=== PATIENT | male | born 1960 | race Caucasian/White ===

== ENCOUNTER 2021-07-18 14:44 | Inpatient (IN) | payer OTHER ==
--- NOTE | 2021-07-18 14:37 | EDM.PDOC ---
"ED HPI GENERAL MEDICAL PROBLEM - General Source of Information: Reports: Patient History Limitations: Reports: No Limitations - General Stated Complaint: AMBULANCE / TRAUMA CODE Time Seen by Provider: 07/18/21 14:15 - History of Present Illness INITIAL COMMENTS - FREE TEXT/NARRATIVE: 61 y/o M was shingling a two story roof when he tripped over a hose and fell backwards off the roof. He states he hit his left hip and flank on the side of a dump truck on the way down. C/O L flank and hip pain. Denies LOC. EMS reports significant intrusion into the ortiz of the dump truck where pt fell. He denies whittaker, neck pn, vision prob, jaw pain, cp, db, abd pn, upper and lower extremity pain. He states no med hx, meds, allergies, blood thinners, etoh, drugs. (Emilio La) - Related Data Allergies Allergy/AdvReac Type Severity Reaction Status Date / Time No Known Allergies Allergy Verified 03/30/14 12:34 Home Meds: Home Meds . [No Known Home Meds] 03/30/14 [History] Review of Systems - Review of Systems Review Of Systems: Comprehensive ROS is negative, except as noted in HPI. ED EXAM, GENERAL - Physical Exam Exam: See Below General Appearance: Alert Eye Exam: Bilateral Eye: PERRL Ears: Normal External Exam, Normal Canal, Hearing Grossly Normal, Normal TMs Nose: Normal Inspection, Normal Mucosa, No Blood Throat/Mouth: Normal Inspection, Normal Lips, Normal Teeth, Normal Gums, Normal Oropharynx, Normal Voice, No Airway Compromise Head: Atraumatic, Normocephalic Respiratory/Chest: No Respiratory Distress, Lungs Clear, Normal Breath Sounds, No Accessory Muscle Use, Chest Non-Tender Cardiovascular: Normal Peripheral Pulses, Regular Rate, Rhythm, No Edema, No Gallop, No JVD, No Murmur, No Rub Peripheral Pulses: 2+: Carotid (L), Carotid (R), Radial (L), Radial (R), Posterior Tibial (L), Posterior Tibial (R), Dorsalis Pedis (L), Dorsalis Pedis (R) GI/Abdominal: Soft, Non-Tender (Male) Exam: Deferred Rectal (Males) Exam: Deferred Back Exam: Normal Inspection, Vertebral Tenderness (lumbar spine, Left flank tenderness) Extremities: Normal Inspection, Normal Range of Motion, Non-Tender, Normal Capillary Refill, No Pedal Edema Neurological: Alert, Oriented, CN II-XII Intact, Normal Cognition, Normal Gait, Normal Reflexes, No Motor/Sensory Deficits Skin Exam: Warm, Dry, Intact - Physical Exam Free Text/Narrative:: Provider Trauma Notes Arrival Time: 1414 GCS on Arrival: 15 C-collar present on arrival: yes GCS at 1 hour: 15 Off spine board: na Time primary survey: 1416 Time secondary survey: 142 Primary Survey Airway: open and patient Breathing: regular without additional effort Circulation: no major bleeding noted Deformity: Tenderness to left flank and lumbar spine. No visible ecchymosis, bruising, abrasions. Pelvis stable. No visible shortening or rotation of lower extremities. Expose: Pt normothermic and kept warm. GCS: 15 C-collar removed at 1528 by Ellen La. Secondary Survey 1422 hrs HEENT Head: normocephalic, atraumatic Eyes: PERRLA Ears: no obvious trauma, canals open Nose: no deformity, no bleeding, mucosa moist Mouth: no noted trauma Throat: no abnormalities noted Neck: Supple, normal range of motion no cervical tenderness Chest: lung sounds were clear and equal bilaterally, Heart was RRR, no murmurs, rubs or gallop Abdomen: normoactive bowel sounds, no organomegally, no tenderness on palpation of the abd, tender L flank and lumbar spine. Pelvis: stable Extremities: CMS intact, No visible trauma. (Emilio La) Course - Orders/Labs/Meds Orders: Active Orders 24 hr Category Date Time Status CORONAVIRUS COVID-19 JOSHUA [MOLEC] Stat Lab 07/18/21 16:44 Ordered Lactated Ringers [Ringers, Lactated] 1,000 ml Med 07/18/21 16:00 Active IV ASDIRECTED Medication Orders Lactated Ringer's (Ringers, Lactated) 1,000 mls @ 125 mls/hr IV ASDIRECTED [facility] Labs: Laboratory Tests 07/18/21 07/18/21 07/18/21 Range/Units 14:33 14:33 15:44 WBC 11.2 H (5.0-10.0) 10^3/uL RBC 4.04 L (4.6-6.2) 10^6/uL Hgb 13.6 L (14.0-18.0) g/dL Hct 39.0 L (40.0-54.0) % MCV 96.5 (80-100) fL MCH 33.7 (27.0-34.0) pg MCHC 34.9 (33.0-35.0) g/dL Plt Count 217 (150-450) 10^3/uL Neut % (Auto) 78.1 H (42.2-75.2) % Lymph % (Auto) 11.7 L (20.5-50.1) % [place] % (Auto) 8.7 H (2-8) % Eos % (Auto) 1.3 (1.0-3.0) % Baso % (Auto) 0.2 (0.0-1.0) % Sodium 140 (136-145) mmol/L Potassium 4.0 (3.5-5.1) mmol/L Chloride 103 (98-107) mmol/L Carbon Dioxide 28 (21-32) mmol/L Anion Gap 13.0 (7-13) mEq/L BUN 18 (7-18) mg/dL Creatinine 0.99 (0.70-1.30) mg/dL Est Cr Clr Drug Dosing TNP Estimated GFR (MDRD) > 60 BUN/Creatinine Ratio 18.2 (No establ ref range) Glucose 108 H (70-99) mg/dL Calcium 8.6 (8.5-10.1) mg/dL Total Bilirubin 0.9 (0.2-1.0) mg/dL AST 40 H (15-37) U/L ALT 44 (16-63) U/L Alkaline Phosphatase 58 (46-116) U/L Total Protein 7.0 (6.4-8.2) g/dL Albumin 3.7 (3.4-5.0) g/dL Globulin 3.3 Albumin/Globulin Ratio 1.1 Urine Color Yellow (YELLOW) Urine Appearance Cloudy (CLEAR) Urine pH 5.0 (5.0-9.0) Ur Specific [place] 1.015 (1.005-1.030) Urine Protein Negative (NEGATIVE) Urine Glucose (UA) Negative (NEGATIVE) Urine Ketones Negative (NEGATIVE) Urine Occult Blood Large H (NEGATIVE) Urine Nitrite Negative (NEGATIVE) Urine Bilirubin Negative (NEGATIVE) Urine Urobilinogen 0.2 (0.2-1.0) mg/dL Ur Leukocyte Esterase Negative (NEGATIVE) Urine RBC >100 H (0-5) /HPF Urine WBC 0-5 (0-5/HPF) /HPF Ur Epithelial Cells Rare (NOT SEEN) /HPF Urine Bacteria Rare (0-FEW/HPF) /HPF Meds: Medications Generic Name Dose Route Start Last Admin Trade Name Freq PRN Reason Stop Dose Admin Lactated Ringer's 1,000 mls @ 125 mls/hr 07/18/21 16:00 Ringers, Lactated IV ASDIRECTED [facility] Discontinued Medications Generic Name Dose Route Start Last Admin Trade Name Freq PRN Reason Stop Dose Admin Hydromorphone HCl 0.5 mg 07/18/21 14:32 Hydromorphone 0.5 Mg/0.5 Ml Syringe IVPUSH 07/18/21 14:33 ONETIME ONE Hydromorphone HCl 1 mg 07/18/21 15:54 Hydromorphone 1 Mg/Ml Syringe IVPUSH 07/18/21 15:55 ONETIME ONE Hydromorphone HCl 1 mg 07/18/21 16:32 Hydromorphone 1 Mg/Ml Syringe IVPUSH 07/18/21 16:33 ONETIME ONE Iopamidol 100 ml 07/18/21 14:28 07/18/21 15:46 Iopamidol 612 Mg/Ml 100 Ml Bottle IVPUSH 07/18/21 14:29 100 ml ONETIME ONE Administration Ondansetron HCl 4 mg 07/18/21 16:28 Ondansetron 4 Mg/2 Ml Sdv IVPUSH 07/18/21 16:29 ONETIME ONE - Radiology Interpretation Free Text/Narrative:: [facility] Final Radiology Report Call: [phone] assistance Online chat: [email or web address] Name: HEMALATHA WEBBER Age: 61Years M Date: 07/18/2021 SSN: -- : 1960 Study: CT CERVICAL SPINE WO CONT Requesting Physician: Emilio La Images: [id number] Addl Studies: Provided Clinical History: fall off two [employer] building Contrast: Without Contrast Medium: Contrast Amount: Contrast Method: Page 1 of 2 PROCEDURE INFORMATION: Exam: CT Cervical Spine Without Contrast Exam date and time: 07/18/2021 2:45 PM Age: 61 years old Clinical indication: Injury or trauma; Fall; Work related; Injury date: Today; Additional info: Fall off two [employer] building TECHNIQUE: Imaging protocol: Computed tomography images of the cervical spine without contrast. Radiation optimization: All CT scans at this facility use at least one of these dose optimization techniques: automated exposure control; mA and/or kV adjustment per patient size (includes targeted exams where dose is matched to clinical indication); or iterative reconstruction. COMPARISON: No relevant prior studies available. FINDINGS: Bones/joints: No acute fracture. Normal alignment. Discs/Spinal canal/Neural foramina: Moderate multilevel degenerative changes with central canal stenosis C3-C4 C4-C5 C6-C7 C7-T1 Lungs: Lung apices are normal. Soft tissues: Unremarkable. IMPRESSION: No acute fracture or dislocation. HEMALATHA WEBBER | Final Radiology Report CONFIDENTIALITY STATEMENT This report is intended only for use by the referring physician, and only in accordance with law. If you received this in error, call [phone]. Page 2 of 2 Thank you for allowing us to participate in the care of your patient. Dictated and Authenticated by: Miguel Schmitz MD 07/18/2021 3:14 PM Central Time ([place] & [place]) [facility] [place] [facility] Final Radiology Report Call: [phone] assistance Online chat: [email or web address] Name: HEMALATHA WEBBER Age: 61Years M Date: 07/18/2021 SSN: -- : [id number] Study: CT CHEST ABDOMEN PELVIS W CONT Requesting Physician: Emilio La Images: [id number] Addl Studies: [id number] - CT CHEST W (1) Provided Clinical History: trauma, low back pn pain, fall off two stroy building, left flank and lumbar pain Contrast: With Contrast Medium: isovue 300 Contrast Amount: 100 mL Contrast Method: Intravenous (IV) Page 1 of 3 PROCEDURE INFORMATION: Exam: CT Chest With Contrast; Diagnostic Exam date and time: 07/18/2021 2:54 PM Age: 61 years old Clinical indication: Injury or trauma; Fall; Work related; Injury date: Today; Additional info: Trauma, low back pn. Pain, fall off two stroy building, left flank and lumbar pain TECHNIQUE: Imaging protocol: Diagnostic computed tomography of the chest with contrast. Radiation optimization: All CT scans at this facility use at least one of these dose optimization techniques: automated exposure control; mA and/or kV adjustment per patient size (includes targeted exams where dose is matched to clinical indication); or iterative reconstruction. Contrast material: ISOVUE 300; Contrast volume: 100 ml; Contrast route: INTRAVENOUS (IV); COMPARISON: CT Cervical Spine wo Cont 07/18/2021 2:45 PM FINDINGS: Lungs: Bibasilar atelectasis. No focal consolidation. Pleural spaces: Unremarkable. No pneumothorax. No pleural effusion. Heart: Unremarkable. No cardiomegaly. No pericardial effusion. Aorta: Unremarkable. No aortic aneurysm. Lymph nodes: Unremarkable. No enlarged lymph nodes. Bones/joints: Unremarkable. No acute fracture. Soft tissues: Unremarkable. IMPRESSION: No acute findings. HEMALATHA WEBBER | Final Radiology Report Page 2 of 3 PROCEDURE INFORMATION: Exam: CT Abdomen And Pelvis With Contrast Exam date and time: 07/18/2021 2:54 PM Age: 61 years old Clinical indication: Injury or trauma; Fall; Work related; Injury date: Today; Additional info: Trauma, low back pn. Pain, fall off two stroy building, left flank and lumbar pain TECHNIQUE: Imaging protocol: Computed tomography of the abdomen and pelvis with contrast. Radiation optimization: All CT scans at this facility use at least one of these dose optimization techniques: automated exposure control; mA and/or kV adjustment per patient size (includes targeted exams where dose is matched to clinical indication); or iterative reconstruction. Contrast material: ISOVUE 300; Contrast volume: 100 ml; Contrast route: INTRAVENOUS (IV); COMPARISON: CT Cervical Spine wo Cont 07/18/2021 2:45 PM FINDINGS: Liver: Normal. No mass. Gallbladder and bile ducts: Normal. No calcified stones. No ductal dilation. Pancreas: Normal. No ductal dilation. Spleen: Normal. No splenomegaly. Adrenal glands: Normal. No mass. Kidneys and ureters: Normal. No hydronephrosis. Stomach and bowel: Unremarkable. No obstruction. No mucosal thickening. Appendix: No evidence of appendicitis. Intraperitoneal space: Unremarkable. No free air. No significant fluid collection. Vasculature: Small amount of hematoma tracking throughout aortocaval region presumably due to lumbar spine fractures. There is a subtle linear hyperdense vessel coursing post erior to aorta and possibly communicating with the IVC. Lymph nodes: Unremarkable. No enlarged lymph nodes. Urinary bladder: Unremarkable as visualized. Reproductive: Unremarkable as visualized. Bones/joints: Bony pelvis is intact. Multiple fractures throughout lumbar spine. Alignment in lumbar spine grossly preserved. IMPRESSION: 1. No evidence of solid abdominal organ injury. 2. Multiple lumbar spine fractures with associated small retroperitoneal hematoma. The lumbar spine fractures will be described separately in dedicated CT of lumbar spine report HEMALATHA WEBBER | Final Radiology Report CONFIDENTIALITY STATEMENT This report is intended only for use by the referring physician, and only in accordance with law. If you received this in error, call [phone]. Page 3 of 3 3. There is an indeterminate vessel that may communicate with the IVC. An arteriovenous fistula is not excluded. Consider a CT angiogram of the abdomen pelvis to further alvin lucas Thank you for allowing us to participate in the care of your patient. Dictated and Authenticated by: Miguel Schmitz MD 07/18/2021 3:22 PM Central Time ([place] & [place]) (Chris Cullen) - Re-Assessments/Exams Free Text/Narrative Re-Assessment/Exam: 07/18/21 16:[address] Bowman the neuro human services care specialist at regarding the multiple fractures on the lumbar spines and the concerns from [facility]. Dr. Bowman advised after viewing the cts that the lumbar vertebral bodies appear intact adn without any neurological deficits the pt can go home and follow up with his PCP if his pn does not improve in 2 weeks. 07/18/21 16:46 We attempted to ambulate the pt and he cannot sit up or stand up due to pain. He reports pain with movement is so severe that he becomes nauseous and feels like he is going to pass out. The pt is willing to be admitted to the hospital for pain control I spoke with Dr. Milian who is willing to admit the pt fro pain control. (Emilio La) Departure - Departure Time of Disposition: 16:12 (Dr. Milian) Condition: Fair - Discharge Information *PRESCRIPTION DRUG MONITORING PROGRAM REVIEWED*: Not Applicable *COPY OF PRESCRIPTION DRUG MONITORING REPORT IN PATIENT MARIANELA: Not Applicable - Departure Disposition: Admitted As Inpatient 64 Clinical Impression: Lumbar transverse process fracture Qualifiers: Encounter type: initial encounter Fracture type: closed Qualified Code(s): S32.009A - Unspecified fracture of unspecified lumbar vertebra, initial encounter for closed fracture - Discharge Information Forms: ED Department Discharge - My Orders Last 24 Hours: My Active Orders 07/18/21 16:00 Lactated Ringers [Ringers, Lactated] 1,000 ml IV ASDIRECTED 07/18/21 16:44 CORONAVIRUS COVID-19 JOSHUA [MOLEC] Stat - Assessment/Plan Last 24 Hours: My Active Orders 07/18/21 16:00 Lactated Ringers [Ringers, Lactated] 1,000 ml IV ASDIRECTED 07/18/21 16:44 CORONAVIRUS COVID-19 JOSHUA [MOLEC] Stat"
[~2021-07-18 14:44] MED LIST: HYDROmorphone 0.5 MG/0.5 ML Syringe IVPUSH ONE; Iopamidol 612 MG/ML 100 ML Bottle IVPUSH ONE
[2021-07-18] MEDS ORDERED: HYDROmorphone 0.5 MG/0.5 ML Syringe IV ONE (14:58)
[2021-07-18] MEDS ORDERED: HYDROmorphone 1 MG/ML Syringe IV ONE ×2 (14:59→16:35)
[2021-07-18 15:02] LABS: CHLORIDE,CL 103 mmol/L (98-107); SODIUM,NA 140 mmol/L (136-145)
--- NOTE | 2021-07-18 15:14 | CT ---
PROCEDURE INFORMATION: Exam: CT Cervical Spine Without Contrast Exam date and time: 07/18/2021 2:45 PM Age: 61 years old Clinical indication: Injury or trauma; Fall; Work related; Injury date: Today; Additional info: Fall off two stroy building TECHNIQUE: Imaging protocol: Computed tomography images of the cervical spine without contrast. Radiation optimization: All CT scans at this facility use at least one of these dose optimization techniques: automated exposure control; mA and/or kV adjustment per patient size (includes targeted exams where dose is matched to clinical indication); or iterative reconstruction. COMPARISON: No relevant prior studies available. FINDINGS: Bones/joints: No acute fracture. Normal alignment. Discs/Spinal canal/Neural foramina: Moderate multilevel degenerative changes with central canal stenosis C3-C4 C4-C5 C6-C7 C7-T1 Lungs: Lung apices are normal. Soft tissues: Unremarkable. IMPRESSION: No acute fracture or dislocation.
--- NOTE | 2021-07-18 15:23 | CT ---
PROCEDURE INFORMATION: Exam: CT Chest With Contrast; Diagnostic Exam date and time: 07/18/2021 2:54 PM Age: 61 years old Clinical indication: Injury or trauma; Fall; Work related; Injury date: Today; Additional info: Trauma, low back pn. Pain, fall off two stroy building, left flank and lumbar pain TECHNIQUE: Imaging protocol: Diagnostic computed tomography of the chest with contrast. Radiation optimization: All CT scans at this facility use at least one of these dose optimization techniques: automated exposure control; mA and/or kV adjustment per patient size (includes targeted exams where dose is matched to clinical indication); or iterative reconstruction. Contrast material: ISOVUE 300; Contrast volume: 100 ml; Contrast route: INTRAVENOUS (IV); COMPARISON: CT Cervical Spine wo Cont 07/18/2021 2:45 PM FINDINGS: Lungs: Bibasilar atelectasis. No focal consolidation. Pleural spaces: Unremarkable. No pneumothorax. No pleural effusion. Heart: Unremarkable. No cardiomegaly. No pericardial effusion. Aorta: Unremarkable. No aortic aneurysm. Lymph nodes: Unremarkable. No enlarged lymph nodes. Bones/joints: Unremarkable. No acute fracture. Soft tissues: Unremarkable. IMPRESSION: No acute findings. PROCEDURE INFORMATION: Exam: CT Abdomen And Pelvis With Contrast Exam date and time: 07/18/2021 2:54 PM Age: 61 years old Clinical indication: Injury or trauma; Fall; Work related; Injury date: Today; Additional info: Trauma, low back pn. Pain, fall off two stroy building, left flank and lumbar pain TECHNIQUE: Imaging protocol: Computed tomography of the abdomen and pelvis with contrast. Radiation optimization: All CT scans at this facility use at least one of these dose optimization techniques: automated exposure control; mA and/or kV adjustment per patient size (includes targeted exams where dose is matched to clinical indication); or iterative reconstruction. Contrast material: ISOVUE 300; Contrast volume: 100 ml; Contrast route: INTRAVENOUS (IV); COMPARISON: CT Cervical Spine wo Cont 07/18/2021 2:45 PM FINDINGS: Liver: Normal. No mass. Gallbladder and bile ducts: Normal. No calcified stones. No ductal dilation. Pancreas: Normal. No ductal dilation. Spleen: Normal. No splenomegaly. Adrenal glands: Normal. No mass. Kidneys and ureters: Normal. No hydronephrosis. Stomach and bowel: Unremarkable. No obstruction. No mucosal thickening. Appendix: No evidence of appendicitis. Intraperitoneal space: Unremarkable. No free air. No significant fluid collection. Vasculature: Small amount of hematoma tracking throughout aortocaval region presumably due to lumbar spine fractures. There is a subtle linear hyperdense vessel coursing posterior to aorta and possibly communicating with the IVC. Lymph nodes: Unremarkable. No enlarged lymph nodes. Urinary bladder: Unremarkable as visualized. Reproductive: Unremarkable as visualized. Bones/joints: Bony pelvis is intact. Multiple fractures throughout lumbar spine. Alignment in lumbar spine grossly preserved. IMPRESSION: 1. No evidence of solid abdominal organ injury. 2. Multiple lumbar spine fractures with associated small retroperitoneal hematoma. The lumbar spine fractures will be described separately in dedicated CT of lumbar spine report 3. There is an indeterminate vessel that may communicate with the IVC. An arteriovenous fistula is not excluded. Consider a CT angiogram of the abdomen pelvis to further characterize
--- NOTE | 2021-07-18 15:41 | CT ---
PROCEDURE INFORMATION: Exam: CT Lumbar Spine Without Contrast Exam date and time: 07/18/2021 2:45 PM Age: 61 years old Clinical indication: Injury or trauma; Fall; Work related; Injury date: Today; Additional info: Fall, lumbar pain TECHNIQUE: Imaging protocol: Computed tomography images of the lumbar spine without contrast. Radiation optimization: All CT scans at this facility use at least one of these dose optimization techniques: automated exposure control; mA and/or kV adjustment per patient size (includes targeted exams where dose is matched to clinical indication); or iterative reconstruction. COMPARISON: No relevant prior studies available. FINDINGS: There are displaced left L1, L2, L3, L4 transverse process fractures. Additionally, there is a fracture through the right superior endplate of L3 which propagates posteriorly into the right L3 superior facet. Good gross alignment in facet joints throughout lumbar spine. There is also question of a nondisplaced fracture through the upper to mid portion of L1 vertebral body. Moderate multilevel degenerative changes result in mild central canal stenosis L2-L3, L3-L4, L4-L5. Note the L2 fracture is a multi column injury. Neuro surgical evaluation is advised for further assessment. IMPRESSION: There are displaced left L1, L2, L3, L4 transverse process fractures. Additionally, there is a fracture through the right superior endplate of L3 which propagates posteriorly into the right L3 superior facet. Good gross alignment in facet joints throughout lumbar spine. There is also question of a nondisplaced fracture through the upper to mid portion of L1 vertebral body.
[2021-07-18] MEDS ORDERED: HYDROmorphone 1 MG/ML Syringe IVPUSH ONE ×2 (15:54→16:32)
[2021-07-18] MEDS ORDERED: Lactated Ringers 1,000 ML IV ONE (16:00)
[2021-07-18] MEDS ORDERED: Ondansetron 4 MG/2 ML SDV IVPUSH ONE (16:28)
[2021-07-18] MEDS ORDERED: Ondansetron 4 MG/2 ML SDV IV ONE (16:34)
[2021-07-18] MEDS ORDERED: Magnesium Sulfate/Water 2 GM in Premix Bag 1 BAG IV ONE (16:57)
[2021-07-18] MEDS ORDERED: Sodium Chloride 0.9% with KCl 1,000 ML IV SCH (17:00)
[2021-07-18] MEDS ORDERED: Naloxone 2 MG/2 ML Syringe IVPUSH PRN (17:19)
[2021-07-18] MEDS ORDERED: Morphine PF 30 MG/30 ML PCA Vial IV PRN (17:19)
[2021-07-18] MEDS: Ketorolac 30 MG/ML SDV IVPUSH SCH ×2 (19:12→23:35)
[2021-07-18] MEDS: Lactated Ringers 1,000 ML IV SCH (19:18)
[2021-07-18] MEDS: Enoxaparin 40 MG/0.4 ML Syringe SUBCUT SCH (19:19)
[2021-07-18] MEDS: Lidocaine 5% 700 MG Patch TOP SCH (19:21)
[2021-07-18] MEDS: Morphine PF 30 MG/30 ML PCA Vial IV PRN (20:25)
[2021-07-19] MEDS: Lactated Ringers 1,000 ML IV SCH ×3 (01:53→18:01)
[2021-07-19] MEDS: Ketorolac 30 MG/ML SDV IVPUSH SCH ×2 (05:19→11:56)
[2021-07-19] MEDS: Lidocaine 5% 700 MG Patch TOP SCH ×2 (05:27→17:09)
[2021-07-19] MEDS: Ondansetron 4 MG/2 ML SDV IVPUSH PRN ×2 (08:54→17:08)
[2021-07-19] MEDS: Enoxaparin 40 MG/0.4 ML Syringe SUBCUT SCH (08:56)
[2021-07-19] MEDS: Morphine PF 30 MG/30 ML PCA Vial IV PRN ×2 (09:10→23:19)
--- NOTE | 2021-07-19 12:11 | PCM.HP ---
H&P History of Present Illness - General Date of Service: 07/18/21 Admit Problem/Dx: Admission Diagnosis/Problem Admission Diagnosis/Problem Spinous process fracture, Trauma - History of Present Illness Initial Comments - Free Text/Narative: Zeeshan is a 61-year-old man who was working on a 2 story roof, when he tripped on some debris and fell off the roof. He struck the ortiz of a taller truck on the way down, striking his low back and right hip. He then landed on the ground, but fortunately did not strike or injure his head. He was sent immediately to the ED where he underwent a trauma evaluation. Head and C-spine were clear on CT scan, but he was noted to have transverse process fractures of L1-L4. He is also noted to have a vertebral fracture of L2. As I approach Zeeshan in the ED, he is having severe pain in his lower back, he states "it only hurts when I move". back Pain Score (Numeric/FACES): 5 - Related Data Allergies/Adverse Reactions: Allergies Allergy/AdvReac Type Severity Reaction Status Date / Time No Known Allergies Allergy Verified 03/30/14 12:34 Home Medications: Home Meds . [No Known Home Meds] 03/30/14 [History] Past Medical History HEENT History: Reports: None Cardiovascular History: Reports: None Respiratory History: Reports: None Gastrointestinal History: Reports: Other (See Below) Other Gastrointestinal History: ulcers Genitourinary History: Reports: None Musculoskeletal History: Reports: None Neurological History: Reports: None Psychiatric History: Reports: None Endocrine/Metabolic History: Reports: None Hematologic History: Reports: None Immunologic History: Reports: None Oncologic (Cancer) History: Reports: None Dermatologic History: Reports: None - Infectious Disease History Infectious Disease History: Reports: None - Past Surgical History HEENT Surgical History: Reports: None Cardiovascular Surgical History: Reports: None Respiratory Surgical History: Reports: None Male Surgical History: Reports: None Musculoskeletal Surgical History: Reports: None Social & Family History - Family History Family Medical History: No Pertinent Family History - Tobacco Use Tobacco Use Status *Q: Never Tobacco User Second Hand Smoke Exposure: No - Caffeine Use Caffeine Use: Reports: None - Recreational Drug Use Recreational Drug Use: Yes Drug Use in Last 12 Months: Yes Recreational Drug Type: Reports: Marijuana/Hashish Recreational Drug Use Frequency: Weekly H&P Review of Systems - Review of Systems: Review Of Systems: See Below General: Denies: Fever, Chills, Weight Loss HEENT: Denies: Hearing Changes, Visual Changes Cardiovascular: Denies: Chest Pain, Palpitations Gastrointestinal: Reports: Other (See HPI) Genitourinary: Denies: Dysuria, Hematuria Musculoskeletal: Reports: Other (See HPI) Skin: Denies: Lesions, Lumps Review of Systems Comment:: Rest of his review of systems is complete and negative Exam - Exam Exam: See Below - Vital Signs Vital Signs: Last Vital Signs Temp 97.1 F 07/19/21 11:42 Pulse 51 L 07/19/21 11:42 Resp 18 07/19/21 11:42 BP 99/54 L 07/19/21 11:42 Pulse Ox 100 07/19/21 11:42 Weight: 205 lb 11.2 oz - Exam Physical Exam Comments:: General: Zeeshan is a 61-year-old man who is in severe pain, but in no acute distress Oropharynx is clear, mucous membranes are moist Neck: Supple, no lymphadenopathy Heart: Regular rate and rhythm, no murmurs Lungs: Clear to auscultation throughout Abdomen: He has some ecchymosis over his lower abdomen, and a large contusion over the right side and down over his hip. He is very painful with any palpation of his lower back Neurological: Cranial nerves II through XII are grossly intact - Patient Data Lab Results Last 24 hrs: Laboratory Results - last 24 hr 07/18/21 07/18/21 07/18/21 Range/Units 14:33 14:33 15:44 WBC 11.2 H (5.0-10.0) 10^3/uL RBC 4.04 L (4.6-6.2) 10^6/uL Hgb 13.6 L (14.0-18.0) g/dL Hct 39.0 L (40.0-54.0) % MCV 96.5 (80-100) fL MCH 33.7 (27.0-34.0) pg MCHC 34.9 (33.0-35.0) g/dL Plt Count 217 (150-450) 10^3/uL Neut % (Auto) 78.1 H (42.2-75.2) % Lymph % (Auto) 11.7 L (20.5-50.1) % [place] % (Auto) 8.7 H (2-8) % Eos % (Auto) 1.3 (1.0-3.0) % Baso % (Auto) 0.2 (0.0-1.0) % Sodium 140 (136-145) mmol/L Potassium 4.0 (3.5-5.1) mmol/L Chloride 103 (98-107) mmol/L Carbon Dioxide 28 (21-32) mmol/L Anion Gap 13.0 (7-13) mEq/L BUN 18 (7-18) mg/dL Creatinine 0.99 (0.70-1.30) mg/dL Est Cr Clr Drug Dosing TNP Estimated GFR (MDRD) > 60 BUN/Creatinine Ratio 18.2 (No establ ref range) Glucose 108 H (70-99) mg/dL Calcium 8.6 (8.5-10.1) mg/dL Total Bilirubin 0.9 (0.2-1.0) mg/dL AST 40 H (15-37) U/L ALT 44 (16-63) U/L Alkaline Phosphatase 58 (46-116) U/L Total Protein 7.0 (6.4-8.2) g/dL Albumin 3.7 (3.4-5.0) g/dL Globulin 3.3 Albumin/Globulin Ratio 1.1 Urine Color Yellow (YELLOW) Urine Appearance Cloudy (CLEAR) Urine pH 5.0 (5.0-9.0) Ur Specific [place] 1.015 (1.005-1.030) Urine Protein Negative (NEGATIVE) Urine Glucose (UA) Negative (NEGATIVE) Urine Ketones Negative (NEGATIVE) Urine Occult Blood Large H (NEGATIVE) Urine Nitrite Negative (NEGATIVE) Urine Bilirubin Negative (NEGATIVE) Urine Urobilinogen 0.2 (0.2-1.0) mg/dL Ur Leukocyte Esterase Negative (NEGATIVE) Urine RBC >100 H (0-5) /HPF Urine WBC 0-5 (0-5/HPF) /HPF Ur Epithelial Cells Rare (NOT SEEN) /HPF Urine Bacteria Rare (0-FEW/HPF) /HPF SARS CoV-2 RNA Rapid JOSHUA (NEGATIVE) 07/18/21 Range/Units 16:45 WBC (5.0-10.0) 10^3/uL RBC (4.6-6.2) 10^6/uL Hgb (14.0-18.0) g/dL Hct (40.0-54.0) % MCV (80-100) fL MCH (27.0-34.0) pg MCHC (33.0-35.0) g/dL Plt Count (150-450) 10^3/uL Neut % (Auto) (42.2-75.2) % Lymph % (Auto) (20.5-50.1) % [place] % (Auto) (2-8) % Eos % (Auto) (1.0-3.0) % Baso % (Auto) (0.0-1.0) % Sodium (136-145) mmol/L Potassium (3.5-5.1) mmol/L Chloride (98-107) mmol/L Carbon Dioxide (21-32) mmol/L Anion Gap (7-13) mEq/L BUN (7-18) mg/dL Creatinine (0.70-1.30) mg/dL Est Cr Clr Drug Dosing Estimated GFR (MDRD) BUN/Creatinine Ratio (No establ ref range) Glucose (70-99) mg/dL Calcium (8.5-10.1) mg/dL Total Bilirubin (0.2-1.0) mg/dL AST (15-37) U/L ALT (16-63) U/L Alkaline Phosphatase (46-116) U/L Total Protein (6.4-8.2) g/dL Albumin (3.4-5.0) g/dL Globulin Albumin/Globulin Ratio Urine Color (YELLOW) Urine Appearance (CLEAR) Urine pH (5.0-9.0) Ur Specific [place] (1.005-1.030) Urine Protein (NEGATIVE) Urine Glucose (UA) (NEGATIVE) Urine Ketones (NEGATIVE) Urine Occult Blood (NEGATIVE) Urine Nitrite (NEGATIVE) Urine Bilirubin (NEGATIVE) Urine Urobilinogen (0.2-1.0) mg/dL Ur Leukocyte Esterase (NEGATIVE) Urine RBC (0-5) /HPF Urine WBC (0-5/HPF) /HPF Ur Epithelial Cells (NOT SEEN) /HPF Urine Bacteria (0-FEW/HPF) /HPF SARS CoV-2 RNA Rapid JOSHUA Negative (NEGATIVE) Result Diagrams: 07/18/21 14:33 07/18/21 14:33 *Q Meaningful Use (ADM) - VTE Risk Assess *Q Each Risk Factor Represents 1 Point: None Total Score 1 Point Risk Factors: 0 Each Risk Factor Represents 2 Points: Age 60 - 74 Years Total Score 2 Point Risk Factors: 2 Each Risk Factor Represents 3 Points: None Total Score 3 Point Risk Factors: 0 Each Risk Factor Represents 5 Points: Multiple Trauma, Less than 1 Month Total Score 5 Point Risk Factors: 5 Venous Thromboembolism Risk Factor Score *Q: 7 - Problem List (1) Contusion, back SNOMED Code(s): 13630882 ICD Code: S20.229A - CONTUSION OF UNSPECIFIED BACK WALL OF THORAX, INIT ENCNTR Status: Acute Current Visit: Yes Qualifiers: Encounter type: initial encounter (2) Intractable back pain SNOMED Code(s): 544902662 ICD Code: M54.9 - DORSALGIA, UNSPECIFIED Status: Acute Current Visit: Yes (3) Lumbar transverse process fracture SNOMED Code(s): 143923537 ICD Code: S32.009A - UNSP FRACTURE OF UNSP LUMBAR VERTEBRA, INIT FOR CLOS FX Status: Acute Current Visit: Yes Qualifiers: Encounter type: initial encounter Fracture type: closed Qualified Code(s): S32.009A - Unspecified fracture of unspecified lumbar vertebra, initial encounter for closed fracture (4) Trauma SNOMED Code(s): 932024680 ICD Code: T14.90XA - INJURY, UNSPECIFIED, INITIAL ENCOUNTER Status: Acute Current Visit: Yes Problem List Initiated/Reviewed/Updated: Yes Orders Last 24hrs: Active Orders 24 hr Category Date Time Status Admission Diagnosis [ADT] Stat ADT 07/18/21 16:50 Ordered Admission Status [Patient Status] [ADT] Routine ADT 07/18/21 16:50 Active Bedrest Bathroom Privileges [RC] ASDIRECTED Care 07/18/21 17:17 Active Communication Order [RC] PER UNIT ROUTINE Care 07/18/21 17:20 Active Oxygen Therapy [RC] PRN Care 07/18/21 17:17 Active DISPATCHER RADIO Record [RC] Q4H Care 07/18/21 17:20 Active DISPATCHER RADIO Record [RC] Q4H Care 07/18/21 17:20 Active VTE/DVT Education [RC] PER UNIT ROUTINE Care 07/18/21 17:17 Active Vital Signs [RC] 07,11,15,19,23,03 Care 07/18/21 17:17 Active Vital Signs [RC] PER UNIT ROUTINE Care 07/18/21 17:20 Active Full Liquid Diet [DIET] Diet 07/19/21 Breakfast Active Enoxaparin [Lovenox] Med 07/18/21 17:30 Active 40 mg SUBCUT DAILY Lactated Ringers [Ringers, Lactated] 1,000 ml Med 07/18/21 16:00 Active IV ASDIRECTED Lidocaine 5% [Lidoderm 5%] Med 07/18/21 17:30 Active See Dose Instructions TOP Q12H Morphine PF [Morphine DISPATCHER RADIO 30 MG in 30 ML] Med 07/18/21 20:16 Active See Protocol IV ASDIRECTED PRN Naloxone [Narcan] Med 07/18/21 17:19 Active 0.04 mg IVPUSH Q3M PRN Ondansetron [Zofran] Med 07/18/21 17:19 Active 4 mg IVPUSH Q6H PRN Pulse Oximetry Continuous Monitoring [OM.PC] Routine Oth 07/18/21 17:20 Ordered Resuscitation Status Routine Resus Stat 07/18/21 17:17 Ordered Medication Orders Enoxaparin Sodium (Enoxaparin 40 Mg/0.4 Ml Syringe) 40 mg SUBCUT DAILY [facility] Last Admin: 07/19/21 08:56 Dose: 40 mg Documented by: Admin: 07/18/21 19:19 Dose: 40 mg Documented by: HANNAH Lactated Ringer's (Ringers, Lactated) 1,000 mls @ 125 mls/hr IV ASDIRECTED [facility] Last Admin: 07/19/21 09:48 Dose: 125 mls/hr Documented by: Infusion: 07/19/21 09:45 Dose: 125 mls/hr Documented by: Admin: 07/19/21 01:53 Dose: 125 mls/hr Documented by: Infusion: 07/19/21 01:53 Dose: 125 mls/hr Documented by: Admin: 07/18/21 19:18 Dose: 125 mls/hr Documented by: HANNAH Lidocaine (Lidocaine 5% 700 Mg Patch) 0 mg TOP Q12H [facility] Last Admin: 07/19/21 05:27 Dose: Not Given Documented by: Admin: 07/18/21 19:21 Dose: 700 mg Documented by: HANNAH Morphine Sulfate (Morphine Pf 30 Mg/30 Ml Park Manager Vial) 0 mg IV ASDIRECTED PRN; Protocol PRN Reason: Pain Last Admin: 07/19/21 09:10 Dose: 30 mg Documented by: JEREMY Cosigned by: GENOVEVA Admin: 07/18/21 20:25 Dose: 30 mg Documented by: CASSANDRA Cosigned by: JEREMY Naloxone HCl (Naloxone 2 Mg/2 Ml Syringe) 0.04 mg IVPUSH Q3M PRN PRN Reason: Respiratory Depression Ondansetron HCl (Ondansetron 4 Mg/2 Ml Sdv) 4 mg IVPUSH Q6H PRN PRN Reason: Nausea/Vomiting Last Admin: 07/19/21 08:54 Dose: 4 mg Documented by: ANETA Assessment/Plan Comment:: Assessment/Plan: 1. 61-year-old man with multiple level transverse process fracture of the lumbar spine, as well as severe contusions of the low back and right hip -He is admitted to inpatient, both for treatment of his intractable back pain as well as for an overnight trauma observation. We are a level 4 trauma center, but because of the COVID-19 pandemic crisis, there are no beds available in the surrounding hospitals for a trauma observation. We will therefore do his trauma observation here even though we do not have a surgeon available -Morphine DISPATCHER RADIO to help control his pain in a safe manner -Toradol, 30 mg IV every 6 hours scheduled -Lidoderm patches to his lumbar spine to help control pain -I discussed with the patient that the first 24 hours of inflammation and pain are to be the worst for him. After 24 hours, we will work on starting to get him mobilized and get a feel for his pain level with ambulation. He will be needing a TLSO brace upon discharge, we will work on getting that for him here w hile he is inpatient to get him accustomed to it if possible. 2. VTE prophylaxis: Due to his recent trauma and the fact that he will be fairly immobile for the next 24 to 48 hours, will start him on Lovenox, 40 mg subcu daily for prophylaxis
--- NOTE | 2021-07-19 16:09 | PCM.PN ---
- General Info Date of Service: 07/19/21 Admission Dx/Problem (Free Text): Admission Diagnosis/Problem Admission Diagnosis/Problem Spinous process fracture, Trauma Subjective Update: Zeeshan did well through the night with the morphine SALES SYSTEMS ENGINEER in place. It was able to keep him comfortable enough to sleep fairly well. He is having more pain this morning with activity, and has had some mild abdominal pain and also just some bloating and abdominal discomfort as well. We pulled his diet back to liquid diet, as it is apparent that he is having some abdominal ileus from his trauma. CT the abdomen pelvis yesterday did not show any signs of injury to the abdominal or pelvic organs. - Patient Data Vitals - Most Recent: Last Vital Signs Temp 97.1 F 07/19/21 11:42 Pulse 51 L 07/19/21 11:42 Resp 18 07/19/21 11:42 BP 99/54 L 07/19/21 11:42 Pulse Ox 100 07/19/21 11:42 Weight - Most Recent: 205 lb 11.2 oz I&O - Last 24 Hours: Intake & Output 07/19/21 07/19/21 07/19/21 06:59 14:59 22:59 Intake Total 1536 200 Output Total 1200 Balance 336 200 Lab Results Last 24 Hours: Laboratory Results - last 24 hr 07/18/21 07/18/21 Range/Units 15:44 16:45 Urine Color Yellow (YELLOW) Urine Appearance Cloudy (CLEAR) Urine pH 5.0 (5.0-9.0) Ur Specific [place] 1.015 (1.005-1.030) Urine Protein Negative (NEGATIVE) Urine Glucose (UA) Negative (NEGATIVE) Urine Ketones Negative (NEGATIVE) Urine Occult Blood Large H (NEGATIVE) Urine Nitrite Negative (NEGATIVE) Urine Bilirubin Negative (NEGATIVE) Urine Urobilinogen 0.2 (0.2-1.0) mg/dL Ur Leukocyte Esterase Negative (NEGATIVE) Urine RBC >100 H (0-5) /HPF Urine WBC 0-5 (0-5/HPF) /HPF Ur Epithelial Cells Rare (NOT SEEN) /HPF Urine Bacteria Rare (0-FEW/HPF) /HPF SARS CoV-2 RNA Rapid JOSHUA Negative (NEGATIVE) Med Orders - Current: Current Medications Enoxaparin Sodium (Enoxaparin 40 Mg/0.4 Ml Syringe) 40 mg SUBCUT DAILY [facility] Last Admin: 07/19/21 08:56 Dose: 40 mg Documented by: Lactated Ringer's (Ringers, Lactated) 1,000 mls @ 125 mls/hr IV ASDIRECTED [facility] Last Admin: 07/19/21 09:48 Dose: 125 mls/hr Documented by: Lidocaine (Lidocaine 5% 700 Mg Patch) 0 mg TOP Q12H [facility] Last Admin: 07/19/21 05:27 Dose: Not Given Documented by: Morphine Sulfate (Morphine Pf 30 Mg/30 Ml Workforce Services Representative Vial) 0 mg IV ASDIRECTED PRN; Protocol PRN Reason: Pain Last Admin: 07/19/21 09:10 Dose: 30 mg Documented by: Naloxone HCl (Naloxone 2 Mg/2 Ml Syringe) 0.04 mg IVPUSH Q3M PRN PRN Reason: Respiratory Depression Ondansetron HCl (Ondansetron 4 Mg/2 Ml Sdv) 4 mg IVPUSH Q6H PRN PRN Reason: Nausea/Vomiting Last Admin: 07/19/21 08:54 Dose: 4 mg Documented by: Discontinued Medications Hydromorphone HCl (Hydromorphone 0.5 Mg/0.5 Ml Syringe) 0.5 mg IVPUSH ONETIME ONE Stop: 07/18/21 14:33 Last Admin: 07/19/21 00:04 Dose: Not Given Documented by: Hydromorphone HCl (Hydromorphone 1 Mg/Ml Syringe) 1 mg IVPUSH ONETIME ONE Stop: 07/18/21 15:55 Last Admin: 07/19/21 00:04 Dose: Not Given Documented by: Hydromorphone HCl (Hydromorphone 1 Mg/Ml Syringe) 1 mg IVPUSH ONETIME ONE Stop: 07/18/21 16:33 Last Admin: 07/19/21 00:04 Dose: Not Given Documented by: Magnesium Sulfate 2 gm/ Premix 50 mls @ 25 mls/hr IV ONETIME ONE Stop: 07/18/21 18:56 Last Admin: 07/19/21 00:07 Dose: Not Given Documented by: Potassium Chloride/Sodium Chloride (Normal Saline With 40 Meq Kcl) 1,000 mls @ 999 mls/hr IV ASDIRECTED [facility] Iopamidol (Iopamidol 612 Mg/Ml 100 Ml Bottle) 100 ml IVPUSH ONETIME ONE Stop: 07/18/21 14:29 Last Admin: 07/18/21 15:46 Dose: 100 ml Documented by: Ketorolac Tromethamine (Ketorolac 30 Mg/Ml Sdv) 30 mg IVPUSH Q6H [facility] Stop: 07/19/21 11:31 Last Admin: 07/19/21 11:56 Dose: 30 mg Documented by: Morphine Sulfate (Morphine Pf 30 Mg/30 Ml Workforce Services Representative Vial) 0 mg IV ASDIRECTED PRN; Pr otocol PRN Reason: Pain Last Admin: 07/18/21 19:57 Dose: 30 mg Documented by: Ondansetron HCl (Ondansetron 4 Mg/2 Ml Sdv) 4 mg IVPUSH ONETIME ONE Stop: 07/18/21 16:29 Last Admin: 07/19/21 00:06 Dose: Not Given Documented by: - Exam Physical Findings Comments:: General: Zeeshan is a 61-year-old man in no acute distress Oropharynx is clear, mucous membranes are moist Abdomen is soft, diffusely tender, very hypoactive bowel sounds are heard in all 4 quadrants He is able to move both of his lower extremities without difficulty - Patient Data Lab Results Last 24 hrs: Laboratory Results - last 24 hr 07/18/21 07/18/21 Range/Units 15:44 16:45 Urine Color Yellow (YELLOW) Urine Appearance Cloudy (CLEAR) Urine pH 5.0 (5.0-9.0) Ur Specific [place] 1.015 (1.005-1.030) Urine Protein Negative (NEGATIVE) Urine Glucose (UA) Negative (NEGATIVE) Urine Ketones Negative (NEGATIVE) Urine Occult Blood Large H (NEGATIVE) Urine Nitrite Negative (NEGATIVE) Urine Bilirubin Negative (NEGATIVE) Urine Urobilinogen 0.2 (0.2-1.0) mg/dL Ur Leukocyte Esterase Negative (NEGATIVE) Urine RBC >100 H (0-5) /HPF Urine WBC 0-5 (0-5/HPF) /HPF Ur Epithelial Cells Rare (NOT SEEN) /HPF Urine Bacteria Rare (0-FEW/HPF) /HPF SARS CoV-2 RNA Rapid JOSHUA Negative (NEGATIVE) Result Diagrams: 07/18/21 14:33 07/18/21 14:33 Sepsis Event Note - Evaluation Sepsis Screening Result: No Definite Risk - Focused Exam Vital Signs: Vital Signs Temp Pulse Resp BP Pulse Ox 07/19/21 11:42 97.1 F 51 L 18 99/54 L 100 07/19/21 11:00 97.1 F 51 L 18 99/54 L 100 07/19/21 07:00 97.6 F 50 L 20 99/54 L 95 - Problem List & Annotations (1) Contusion, back SNOMED Code(s): 03113275 Code(s): S20.229A - CONTUSION OF UNSPECIFIED BACK WALL OF THORAX, INIT ENCNTR Status: Acute Current Visit: Yes Qualifiers: Encounter type: initial encounter (2) Intractable back pain SNOMED Code(s): 998103569 Code(s): M54.9 - DORSALGIA, UNSPECIFIED Status: Acute Current Visit: Yes (3) Lumbar transverse process fracture SNOMED Code(s): 637264485 Code(s): S32.009A - UNSP FRACTURE OF UNSP LUMBAR VERTEBRA, INIT FOR CLOS FX Status: Acute Current Visit: Yes Qualifiers: Encounter type: initial encounter Fracture type: closed Qualified Code(s): S32.009A - Unspecified fracture of unspecified lumbar vertebra, initial encounter for closed fracture (4) Trauma SNOMED Code(s): 881438406 Code(s): T14.90XA - INJURY, UNSPECIFIED, INITIAL ENCOUNTER Status: Acute Current Visit: Yes - Problem List Review Problem List Initiated/Reviewed/Updated: Yes - My Orders Last 24 Hours: My Active Orders 07/18/21 17:17 Bedrest Bathroom Privileges [RC] ASDIRECTED Oxygen Therapy [RC] PRN VTE/DVT Education [RC] PER UNIT ROUTINE Vital Signs [RC] 07,11,15,19,23,03 Resuscitation Status Routine 07/18/21 17:19 Naloxone [Narcan] 0.04 mg IVPUSH Q3M PRN Ondansetron [Zofran] 4 mg IVPUSH Q6H PRN 07/18/21 17:20 Communication Order [RC] PER UNIT ROUTINE SALES SYSTEMS ENGINEER Record [RC] Q4H SALES SYSTEMS ENGINEER Record [RC] Q4H Vital Signs [RC] PER UNIT ROUTINE Pulse Oximetry Continuous Monitoring [OM.PC] Routine 07/18/21 17:30 Enoxaparin [Lovenox] 40 mg SUBCUT DAILY Lidocaine 5% [Lidoderm 5%] See Dose Instructions TOP Q12H 07/18/21 20:16 Morphine PF [Morphine SALES SYSTEMS ENGINEER 30 MG in 30 ML] See Protocol IV ASDIRECTED PRN 07/19/21 Breakfast Full Liquid Diet [DIET] - Plan Plan:: Assessment/Plan: 1. 61-year-old man with multiple level transverse process fracture of the lumbar spine, as well as severe contusions of the low back and right hip 2. Adynamic ileus secondary to above trauma -We will get a upright abdomen x-ray to assess his ileus. If the symptoms continue to escalate, we may need to repeat his abdominal/pelvis CT -Morphine SALES SYSTEMS ENGINEER to help control his pain in a safe manner -Toradol, 30 mg IV every 6 hours scheduled -Lidoderm patches to his lumbar spine to help control pain -I discussed with the patient that the first 24 hours of inflammation and pain are to be the worst for him. After 24 hours, we will work on starting to get him mobilized and get a feel for his pain level with ambulation. He will be needing a TLSO brace upon discharge, we will work on getting that for him here while he is inpatient to get him accustomed to it if possible. 2. VTE prophylaxis: Due to his recent trauma and the fact that he will be fairly immobile for the next 24 to 48 hours, will start him on Lovenox, 40 mg subcu daily for prophylaxis
[2021-07-19] MEDS: Docusate Sodium 100 MG Cap PO SCH (23:25)
[2021-07-20] MEDS: Lactated Ringers 1,000 ML IV SCH ×3 (02:04→18:18)
[2021-07-20] MEDS: Lidocaine 5% 700 MG Patch TOP SCH ×2 (05:23→18:29)
[2021-07-20] MEDS: Docusate Sodium 100 MG Cap PO SCH ×3 (07:41→22:22)
[2021-07-20] MEDS: Ondansetron 4 MG/2 ML SDV IVPUSH PRN (07:41)
--- NOTE | 2021-07-20 08:13 | PCM.PN ---
- General Info Date of Service: 07/20/21 Admission Dx/Problem (Free Text): Admission Diagnosis/Problem Admission Diagnosis/Problem Spinous process fracture, Trauma Subjective Update: Zeeshan is a 61-year-old gentleman admitted here with severe intractable pain secondary to multiple transverse spinous process fractures in his lumbar spine, as well as a vertebral fracture involving L2. He has been having a lot of radicular symptoms from this into his low back, groin, and lower extremities. He has responded well to morphine FAST FOOD CREW LEAD, and has received scheduled doses of Toradol. - Patient Data Vitals - Most Recent: Last Vital Signs Temp 98.5 F 07/20/21 07:52 Pulse 67 07/20/21 07:52 Resp 20 07/20/21 07:52 BP 122/82 07/20/21 07:52 Pulse Ox 95 07/20/21 07:52 Weight - Most Recent: 205 lb 11.2 oz I&O - Last 24 Hours: Intake & Output 07/19/21 07/20/21 07/20/21 22:59 06:59 14:59 Intake Total 1000 Output Total 300 Balance 700 Med Orders - Current: Current Medications Docusate Sodium (Docusate Sodium 100 Mg Cap) 100 mg PO BID [facility] Last Admin: 07/20/21 07:41 Dose: 100 mg Documented by: Enoxaparin Sodium (Enoxaparin 40 Mg/0.4 Ml Syringe) 40 mg SUBCUT DAILY [facility] Last Admin: 07/19/21 08:56 Dose: 40 mg Documented by: Lactated Ringer's (Ringers, Lactated) 1,000 mls @ 125 mls/hr IV ASDIRECTED [facility] Last Admin: 07/20/21 02:04 Dose: 125 mls/hr Documented by: Lidocaine (Lidocaine 5% 700 Mg Patch) 0 mg TOP Q12H [facility] Last Admin: 07/20/21 05:23 Dose: Not Given Documented by: Morphine Sulfate (Morphine Pf 30 Mg/30 Ml Tie Loader Vial) 0 mg IV ASDIRECTED PRN; Protocol PRN Reason: Pain Last Admin: 07/19/21 23:19 Dose: 30 mg Documented by: Naloxone HCl (Naloxone 2 Mg/2 Ml Syringe) 0.04 mg IVPUSH Q3M PRN PRN Reason: Respiratory Depression Ondansetron HCl (Ondansetron 4 Mg/2 Ml Sdv) 4 mg IVPUSH Q6H PRN PRN Reason: Nausea/Vomiting Last Admin: 07/20/21 07:41 Dose: 4 mg Documented by: Discontinued Medications Hydromorphone HCl (Hydromorphone 0.5 Mg/0.5 Ml Syringe) 0.5 mg IVPUSH ONETIME ONE Stop: 07/18/21 14:33 Last Admin: 07/19/21 00:04 Dose: Not Given Documented by: Hydromorphone HCl (Hydromorphone 1 Mg/Ml Syringe) 1 mg IVPUSH ONETIME ONE Stop: 07/18/21 15:55 Last Admin: 07/19/21 00:04 Dose: Not Given Documented by: Hydromorphone HCl (Hydromorphone 1 Mg/Ml Syringe) 1 mg IVPUSH ONETIME ONE Stop: 07/18/21 16:33 Last Admin: 07/19/21 00:04 Dose: Not Given Documented by: Magnesium Sulfate 2 gm/ Premix 50 mls @ 25 mls/hr IV ONETIME ONE Stop: 07/18/21 18:56 Last Admin: 07/19/21 00:07 Dose: Not Given Documented by: Potassium Chloride/Sodium Chloride (Normal Saline With 40 Meq Kcl) 1,000 mls @ 999 mls/hr IV ASDIRECTED [facility] Iopamidol (Iopamidol 612 Mg/Ml 100 Ml Bottle) 100 ml IVPUSH ONETIME ONE Stop: 07/18/21 14:29 Last Admin: 07/18/21 15:46 Dose: 100 ml Documented by: Ketorolac Tromethamine (Ketorolac 30 Mg/Ml Sdv) 30 mg IVPUSH Q6H [facility] Stop: 07/19/21 11:31 Last Admin: 07/19/21 11:56 Dose: 30 mg Documented by: Morphine Sulfate (Morphine Pf 30 Mg/30 Ml Tie Loader Vial) 0 mg IV ASDIRECTED PRN; Protocol PRN Reason: Pain Last Admin: 07/18/21 19:57 Dose: 30 mg Documented by: Ondansetron HCl (Ondansetron 4 Mg/2 Ml Sdv) 4 mg IVPUSH ONETIME ONE Stop: 07/18/21 16:29 Last Admin: 07/19/21 00:06 Dose: Not Given Documented by: - Exam Physical Findings Comments:: General: Zeeshan is a 61-year-old man in no acute distress Oropharynx is clear, mucous membranes are moist Heart: Regular rate and rhythm, no murmurs Lungs: Clear to auscultation throughout - Patient Data Result Diagrams: 07/18/21 14:33 07/18/21 14:33 Sepsis Event Note - Evaluation Sepsis Screening Result: No Definite Risk - Focused Exam Vital Signs: Vital Signs Temp Pulse Resp BP Pulse Ox 07/20/21 07:52 98.5 F 67 20 122/82 95 - Problem List & Annotations (1) Contusion, back SNOMED Code(s): 27662181 Code(s): S20.229A - CONTUSION OF UNSPECIFIED BACK WALL OF THORAX, INIT ENCNTR Status: Acute Current Visit: Yes Qualifiers: Encounter type: initial encounter (2) Intractable back pain SNOMED Code(s): 095499408 Code(s): M54.9 - DORSALGIA, UNSPECIFIED Status: Acute Current Visit: Yes (3) Lumbar transverse process fracture SNOMED Code(s): 241358822 Code(s): S32.009A - UNSP FRACTURE OF UNSP LUMBAR VERTEBRA, INIT FOR CLOS FX Status: Acute Current Visit: Yes Qualifiers: Encounter type: initial encounter Fracture type: closed Qualified Code(s): S32.009A - Unspecified fracture of unspecified lumbar vertebra, initial encounter for closed fracture (4) Trauma SNOMED Code(s): 026114800 Code(s): T14.90XA - INJURY, UNSPECIFIED, INITIAL ENCOUNTER Status: Acute Current Visit: Yes - Problem List Review Problem List Initiated/Reviewed/Updated: Yes - My Orders Last 24 Hours: My Active Orders 07/19/21 Breakfast Full Liquid Diet [DIET] 07/19/21 21:00 Docusate Sodium [Colace] 100 mg PO BID - Plan Plan:: Assessment/Plan: 1. 61-year-old man with multiple level transverse process fracture of the lumb ar spine, as well as severe contusions of the low back and right hip -Morphine FAST FOOD CREW LEAD to help control his pain in a safe manner -Toradol, 30 mg IV every 6 hours scheduled -Lidoderm patches to his lumbar spine to help control pain -We will work to discontinue the morphine FAST [employer]W LEAD over the next 24 to 48 hours, and get him transitioned over to oral pain medication with as needed dosing of IV medication for breakthrough pain. 2. VTE prophylaxis: Due to his recent trauma and the fact that he will be fair ly immobile for the next 24 to 48 hours, will start him on Lovenox, 40 mg subcu daily for prophylaxis
[2021-07-20] MEDS: Enoxaparin 40 MG/0.4 ML Syringe SUBCUT SCH (08:58)
[2021-07-20] MEDS: Morphine PF 30 MG/30 ML PCA Vial IV PRN (14:03)
[2021-07-21] MEDS: Ketorolac 30 MG/ML SDV IVPUSH SCH ×4 (01:40→18:06)
[2021-07-21] MEDS: Lactated Ringers 1,000 ML IV SCH (02:10)
[2021-07-21] MEDS: HYDROmorphone 0.5 MG/0.5 ML Syringe IVPUSH PRN ×7 (02:10→23:44)
[2021-07-21] MEDS: Docusate Sodium 100 MG Cap PO SCH ×2 (09:29→20:57)
[2021-07-21] MEDS: Enoxaparin 40 MG/0.4 ML Syringe SUBCUT SCH (09:29)
[2021-07-21] MEDS: Lidocaine 5% 700 MG Patch TOP SCH (17:49)
[2021-07-22] MEDS: HYDROmorphone 0.5 MG/0.5 ML Syringe IVPUSH PRN ×9 (02:37→22:47)
[2021-07-22] MEDS: Docusate Sodium 100 MG Cap PO SCH ×2 (09:38→22:10)
[2021-07-22] MEDS: Enoxaparin 40 MG/0.4 ML Syringe SUBCUT SCH (09:38)
[2021-07-22] MEDS ORDERED: Polyethylene Glycol 3350 Powder 17 GM Packet PO ONE (16:32)
--- NOTE | 2021-07-22 16:32 | PCM.PN ---
- General Info Date of Service: 07/21/21 Admission Dx/Problem (Free Text): Admission Diagnosis/Problem Admission Diagnosis/Problem Spinous process fracture, Trauma Subjective Update: We are continuing to taper down on his BARREL CAP SETTER, and work to get him starting to move. We were able to order a lumbar support brace for him, which is not a TLSO brace but will suffice in the meantime. We were told that Zeeshan is not able to be fitted for a TLSO brace until he is discharged from the hospital. We are continuing the Lidoderm patches, and he did receive another 24 hours of Toradol to see if we can get him starting mobilized. - Patient Data Vitals - Most Recent: Last Vital Signs Temp 99 F 07/22/21 12:00 Pulse 69 07/22/21 12:00 Resp 18 07/22/21 12:00 BP 134/84 07/22/21 12:00 Pulse Ox 93 L 07/22/21 12:00 Weight - Most Recent: 205 lb 11.2 oz I&O - Last 24 Hours: Intake & Output 07/22/21 07/22/21 07/22/21 06:59 14:59 22:59 Intake Total 100 Output Total 200 900 Balance -100 -900 Med Orders - Current: Current Medications Docusate Sodium (Docusate Sodium 100 Mg Cap) 100 mg PO BID [facility] Last Admin: 07/22/21 09:38 Dose: 100 mg Documented by: Enoxaparin Sodium (Enoxaparin 40 Mg/0.4 Ml Syringe) 40 mg SUBCUT DAILY [facility] Last Admin: 07/22/21 09:38 Dose: 40 mg Documented by: Hydromorphone HCl (Hydromorphone 0.5 Mg/0.5 Ml Syringe) 0.5 mg IVPUSH Q1H PRN PRN Reason: Pain Last Admin: 07/22/21 13:25 Dose: 0.5 mg Documented by: Lidocaine (Lidocaine 5% 700 Mg Patch) 1,400 mg TOP DAILY@1800 [facility] Last Admin: 07/21/21 17:49 Dose: 1,400 mg Documented by: Morphine Sulfate (Morphine Pf 30 Mg/30 Ml Motorcycle Assembler Vial) 0 mg IV ASDIRECTED PRN; Protocol PRN Reason: Pain Last Admin: 07/20/21 14:03 Dose: 30 mg Documented by: Naloxone HCl (Naloxone 2 Mg/2 Ml Syringe) 0.04 mg IVPUSH Q3M PRN PRN Reason: Respiratory Depression Ondansetron HCl (Ondansetron 4 Mg/2 Ml Sdv) 4 mg IVPUSH Q6H PRN PRN Reason: Nausea/Vomiting Last Admin: 07/20/21 07:41 Dose: 4 mg Documented by: Discontinued Medications Hydromorphone HCl (Hydromorphone 0.5 Mg/0.5 Ml Syringe) 0.5 mg IVPUSH ONETIME ONE Stop: 07/18/21 14:33 Last Admin: 07/19/21 00:04 Dose: Not Given Documented by: Hydromorphone HCl (Hydromorphone 1 Mg/Ml Syringe) 1 mg IVPUSH ONETIME ONE Stop: 07/18/21 15:55 Last Admin: 07/19/21 00:04 Dose: Not Given Documented by: Hydromorphone HCl (Hydromorphone 1 Mg/Ml Syringe) 1 mg IVPUSH ONETIME ONE Stop: 07/18/21 16:33 Last Admin: 07/19/21 00:04 Dose: Not Given Documented by: Hydromorphone HCl (Hydromorphone 0.5 Mg/0.5 Ml Syringe) 0.5 mg IV .STK-MED ONE Stop: 07/18/21 14:59 Hydromorphone HCl (Hydromorphone 1 Mg/Ml Syringe) 1 mg IV .STK-MED ONE Stop: 07/18/21 15:00 Hydromorphone HCl (Hydromorphone 1 Mg/Ml Syringe) 1 mg IV .STK-MED ONE Stop: 07/18/21 16:36 Lactated Ringer's (Ringers, Lactated) 1,000 mls @ 125 mls/hr IV ASDIRECTED [facility] Last Admin: 07/21/21 02:10 Dose: 125 mls/hr Documented by: Magnesium Sulfate 2 gm/ Premix 50 mls @ 25 mls/hr IV ONETIME ONE Stop: 07/18/21 18:56 Last Admin: 07/19/21 00:07 Dose: Not Given Documented by: Potassium Chloride/Sodium Chloride (Normal Saline With 40 Meq Kcl) 1,000 mls @ 999 mls/hr IV ASDIRECTED [facility] Lactated Ringer's (Ringers, Lactated) 1,000 mls @ as directed IV .STK-MED ONE Stop: 07/18/21 16:01 Iopamidol (Iopamidol 612 Mg/Ml 100 Ml Bottle) 100 ml IVPUSH ONETIME ONE Stop: 07/18/21 14:29 Last Admin: 07/18/21 15:46 Dose: 100 ml Documented by: Ketorolac Tromethamine (Ketorolac 30 Mg/Ml Sdv) 30 mg IVPUSH Q6H [facility] Stop: 07/19/21 11:31 Last Admin: 07/19/21 11:56 Dose: 30 mg Documented by: Ketorolac Tromethamine (Ketorolac 30 Mg/Ml Sdv) 30 mg IVPUSH Q6H [facility] Stop: 07/21/21 19:01 Last Admin: 07/21/21 18:06 Dose: 30 mg Documented by: Lidocaine (Lidocaine 5% 700 Mg Patch) 0 mg TOP Q12H [facility] Last Admin: 07/20/21 05:23 Dose: Not Given Documented by: Miscellaneous Information (Remove Lidocaine Patches) 1 ea TRDERM DAILY@0600 [facility] Last Admin: 07/21/21 06:13 Dose: Not Given Documented by: Morphine Sulfate (Morphine Pf 30 Mg/30 Ml Motorcycle Assembler Vial) 0 mg IV ASDIRECTED PRN; Protocol PRN Reason: Pain Ondansetron HCl (Ondansetron 4 Mg/2 Ml Sdv) 4 mg IVPUSH ONETIME ONE Stop: 07/18/21 16:29 Last Admin: 07/19/21 00:06 Dose: Not Given Documented by: Ondansetron HCl (Ondansetron 4 Mg/2 Ml Sdv) 4 mg IV .STK-MED ONE Stop: 07/18/21 16:35 - Exam Physical Findings Comments:: General: Zeeshan is a 61-year-old man in no acute distress Oropharynx is clear, mucous membranes are moist Neck: Supple, no lymphadenopathy Heart: Regular rate and rhythm, no murmurs Lungs: Clear to auscultation throughout He is moving his lower extremities normally, is able to urinate normally - Patient Data Result Diagrams: 07/18/21 14:33 07/18/21 14:33 Sepsis Event Note - Evaluation Sepsis Screening Result: No Definite Risk - Focused Exam Vital Signs: Vital Signs Temp Pulse Resp BP Pulse Ox 07/22/21 12:00 99 F 69 18 134/84 93 L 07/22/21 07:49 98.4 F 62 18 144/74 H 97 - Problem List & Annotations (1) Contusion, back SNOMED Code(s): 45615331 Code(s): S20.229A - CONTUSION OF UNSPECIFIED BACK WALL OF THORAX, INIT ENCNTR Status: Acute Current Visit: Yes Qualifiers: Encounter type: initial encounter (2) Intractable back pain SNOMED Code(s): 005849408 Code(s): M54.9 - DORSALGIA, UNSPECIFIED Status: Acute Current Visit: Yes (3) Lumbar transverse process fracture SNOMED Code(s): 055875859 Code(s): S32.009A - UNSP FRACTURE OF UNSP LUMBAR VERTEBRA, INIT FOR CLOS FX Status: Acute Current Visit: Yes Qualifiers: Encounter type: initial encounter Fracture type: closed Qualified Code(s): S32.009A - Unspecified fracture of unspecified lumbar vertebra, initial encounter for closed fracture (4) Trauma SNOMED Code(s): 949806394 Code(s): T14.90XA - INJURY, UNSPECIFIED, INITIAL ENCOUNTER Status: Acute Current Visit: Yes - Problem List Review Problem List Initiated/Reviewed/Updated: Yes - Plan Plan:: Assessment/Plan: 1. 61-year-old man with multiple level transverse process fracture of the lumbar spine, as well as severe contusions of the low back and right hip -Morphine BARREL CAP SETTER to help control his pain in a safe manner -Toradol, 30 mg IV every 6 hours scheduled -Lidoderm patches to his lumbar spine to help control pain -We will work to discontinue the morphine BARREL CAP SETTER over the next 24 to 48 hours, and get him transitioned over to oral pain medication with as needed dosing of IV m edication for breakthrough pain. -Continue to work on constipation 2. VTE prophylaxis: Continue Lovenox, 40 mg subcu daily for prophylaxis until he is mobilized much better
--- NOTE | 2021-07-22 16:35 | PCM.PN ---
- General Info Date of Service: 07/22/21 Admission Dx/Problem (Free Text): Admission Diagnosis/Problem Admission Diagnosis/Problem Spinous process fracture, Trauma Subjective Update: Zeeshan is doing a little bit better with his pain today. We were able to successfully discontinue the morphine [employer], and he has been receiving as needed doses of IV hydromorphone. He is continuing to have the Lidoderm patches in place. We are hopeful that his lumbar support brace will arrive today, which will help us get him mobilized better. He does tell us and nursing that he has not had a bowel movement since he has been admitted here. - Patient Data Vitals - Most Recent: Last Vital Signs Temp 99 F 07/22/21 12:00 Pulse 69 07/22/21 12:00 Resp 18 07/22/21 12:00 BP 134/84 07/22/21 12:00 Pulse Ox 93 L 07/22/21 12:00 Weight - Most Recent: 205 lb 11.2 oz I&O - Last 24 Hours: Intake & Output 07/22/21 07/22/21 07/22/21 06:59 14:59 22:59 Intake Total 100 Output Total 200 900 Balance -100 -900 Med Orders - Current: Current Medications Docusate Sodium (Docusate Sodium 100 Mg Cap) 100 mg PO BID [facility] Last Admin: 07/22/21 09:38 Dose: 100 mg Documented by: Enoxaparin Sodium (Enoxaparin 40 Mg/0.4 Ml Syringe) 40 mg SUBCUT DAILY [facility] Last Admin: 07/22/21 09:38 Dose: 40 mg Documented by: Hydromorphone HCl (Hydromorphone 0.5 Mg/0.5 Ml Syringe) 0.5 mg IVPUSH Q1H PRN PRN Reason: Pain Last Admin: 07/22/21 13:25 Dose: 0.5 mg Documented by: Lidocaine (Lidocaine 5% 700 Mg Patch) 1,400 mg TOP DAILY@1800 [facility] Last Admin: 07/21/21 17:49 Dose: 1,400 mg Documented by: Morphine Sulfate (Morphine Pf 30 Mg/30 Ml Mule Spinner Vial) 0 mg IV ASDIRECTED PRN; Protocol PRN Reason: Pain Last Admin: 07/20/21 14:03 Dose: 30 mg Documented by: Naloxone HCl (Naloxone 2 Mg/2 Ml Syringe) 0.04 mg IVPUSH Q3M PRN PRN Reason: Respiratory Depression Ondansetron HCl (Ondansetron 4 Mg/2 Ml Sdv) 4 mg IVPUSH Q6H PRN PRN Reason: Nausea/Vomiting Last Admin: 07/20/21 07:41 Dose: 4 mg Documented by: Discontinued Medications Hydromorphone HCl (Hydromorphone 0.5 Mg/0.5 Ml Syringe) 0.5 mg IVPUSH ONETIME ONE Stop: 07/18/21 14:33 Last Admin: 07/19/21 00:04 Dose: Not Given Documented by: Hydromorphone HCl (Hydromorphone 1 Mg/Ml Syringe) 1 mg IVPUSH ONETIME ONE Stop: 07/18/21 15:55 Last Admin: 07/19/21 00:04 Dose: Not Given Documented by: Hydromorphone HCl (Hydromorphone 1 Mg/Ml Syringe) 1 mg IVPUSH ONETIME ONE Stop: 07/18/21 16:33 Last Admin: 07/19/21 00:04 Dose: Not Given Documented by: Hydromorphone HCl (Hydromorphone 0.5 Mg/0.5 Ml Syringe) 0.5 mg IV .STK-MED ONE Stop: 07/18/21 14:59 Hydromorphone HCl (Hydromorphone 1 Mg/Ml Syringe) 1 mg IV .STK-MED ONE Stop: 07/18/21 15:00 Hydromorphone HCl (Hydromorphone 1 Mg/Ml Syringe) 1 mg IV .STK-MED ONE Stop: 07/18/21 16:36 Lactated Ringer's (Ringers, Lactated) 1,000 mls @ 125 mls/hr IV ASDIRECTED [facility] Last Admin: 07/21/21 02:10 Dose: 125 mls/hr Documented by: Magnesium Sulfate 2 gm/ Premix 50 mls @ 25 mls/hr IV ONETIME ONE Stop: 07/18/21 18:56 Last Admin: 07/19/21 00:07 Dose: Not Given Documented by: Potassium Chloride/Sodium Chloride (Normal Saline With 40 Meq Kcl) 1,000 mls @ 999 mls/hr IV ASDIRECTED [facility] Lactated Ringer's (Ringers, Lactated) 1,000 mls @ as directed IV .STK-MED ONE Stop: 07/18/21 16:01 Iopamidol (Iopamidol 612 Mg/Ml 100 Ml Bottle) 100 ml IVPUSH ONETIME ONE Stop: 07/18/21 14:29 Last Admin: 07/18/21 15:46 Dose: 100 ml Documented by: Ketorolac Tromethamine (Ketorolac 30 Mg/Ml Sdv) 30 mg IVPUSH Q6H [facility] Stop: 07/19/21 11:31 Last Admin: 07/19/21 11:56 Dose: 30 mg Documented by: Ketorolac Tromethamine (Ketorolac 30 Mg/Ml Sdv) 30 mg IVPUSH Q6H [facility] Stop: 07/21/21 19:01 Last Admin: 07/21/21 18:06 Dose: 30 mg Documented by: Lidocaine (Lidocaine 5% 700 Mg Patch) 0 mg TOP Q12H [facility] Last Admin: 07/20/21 05:23 Dose: Not Given Documented by: Miscellaneous Information (Remove Lidocaine Patches) 1 ea TRDEZM DAILY@0600 [facility] Last Admin: 07/21/21 06:13 Dose: Not Given Documented by: Morphine Sulfate (Morphine Pf 30 Mg/30 Ml Mule Spinner Vial) 0 mg IV ASDIRECTED PRN; Protocol PRN Reason: Pain Ondansetron HCl (Ondansetron 4 Mg/2 Ml Sdv) 4 mg IVPUSH ONETIME ONE Stop: 07/18/21 16:29 Last Admin: 07/19/21 00:06 Dose: Not Given Documented by: Ondansetron HCl (Ondansetron 4 Mg/2 Ml Sdv) 4 mg IV .STK-MED ONE Stop: 07/18/21 16:35 - Exam Physical Findings Comments:: General: Zeeshan is a 61-year-old man in no acute distress Oropharynx is clear, mucous membranes are moist Heart: Regular rate and rhythm, no murmurs Lungs: Clear to auscultation throughout He is moving both lower extremities normally, good peripheral pulses - Patient Data Result Diagrams: 07/18/21 14:33 07/18/21 14:33 Sepsis Event Note - Evaluation Sepsis Screening Result: No Definite Risk - Focused Exam Vital Signs: Vital Signs Temp Pulse Resp BP Pulse Ox 07/22/21 12:00 99 F 69 18 134/84 93 L 07/22/21 07:49 98.4 F 62 18 144/74 H 97 - Problem List & Annotations (1) Contusion, back SNOMED Code(s): 85114386 Code(s): S20.229A - CONTUSION OF UNSPECIFIED BACK WALL OF THORAX, INIT ENCNTR Status: Acute Current Visit: Yes Qualifiers: Encounter type: initial encounter (2) Intractable back pain SNOMED Code(s): 880329571 Code(s): M54.9 - DORSALGIA, UNSPECIFIED Status: Acute Current Visit: Yes (3) Lumbar transverse process fracture SNOMED Code(s): 267199463 Code(s): S32.009A - UNSP FRACTURE OF UNSP LUMBAR VERTEBRA, INIT FOR CLOS FX Status: Acute Current Visit: Yes Qualifiers: Encounter type: initial encounter Fracture type: closed Qualified Code(s): S32.009A - Unspecified fracture of unspecified lumbar vertebra, initial encounter for closed fracture (4) Trauma SNOMED Code(s): 119124176 Code(s): T14.90XA - INJURY, UNSPECIFIED, INITIAL ENCOUNTER Status: Acute Current Visit: Yes - Problem List Review Problem List Initiated/Reviewed/Updated: Yes - My Orders Last 24 Hours: My Active Orders 07/22/21 16:32 polyethylene glycoL 3350 [MiraLAX] 51 gm PO ONETIME ONE - Plan Plan:: Assessment/Plan: 1. 61-year-old man with multiple level transverse process fracture of the lumbar spine, as well as severe contusions of the low back and right hip -Morphine [employer] is now discontinued -Toradol, 30 mg IV every 6 hours scheduled -Lidoderm patches to his lumbar spine to help control pain -Continue as needed hydromorphone IV -MiraLAX, large dose p.o. today 2. VTE prophylaxis: Continue Lovenox, 40 mg subcu daily for prophylaxis until h e is mobilized much better
[2021-07-22] MEDS: Lidocaine 5% 700 MG Patch TOP SCH (17:31)
[2021-07-23] MEDS: HYDROmorphone 0.5 MG/0.5 ML Syringe IVPUSH PRN ×11 (01:09→23:34)
[2021-07-23] MEDS: Enoxaparin 40 MG/0.4 ML Syringe SUBCUT SCH (09:28)
[2021-07-23] MEDS: Docusate Sodium 100 MG Cap PO SCH ×2 (09:28→20:54)
--- NOTE | 2021-07-23 09:49 | PCM.PN ---
- General Info Date of Service: 07/23/21 Admission Dx/Problem (Free Text): Admission Diagnosis/Problem Admission Diagnosis/Problem Spinous process fracture, Trauma Subjective Update: Zeeshan is doing fairly well this morning. We have not been able to increase his mobility yet, as her lumbar support brace did not arrive yesterday. He still has severe pain with any motion of his lower back. Physical therapy is working with him to try to get him up as best as they can, but it has been a challenge. He is doing well on as needed dosing of hydromorphone - Patient Data Vitals - Most Recent: Last Vital Signs Temp 98.8 F 07/23/21 07:53 Pulse 78 07/23/21 07:53 Resp 20 07/23/21 07:53 BP 151/84 H 07/23/21 07:53 Pulse Ox 96 07/23/21 07:53 Weight - Most Recent: 205 lb 11.2 oz I&O - Last 24 Hours: Intake & Output 07/22/21 07/23/21 07/23/21 22:59 06:59 14:59 Intake Total 790 150 Output Total 570 1200 Balance 220 -1050 Med Orders - Current: Current Medications Docusate Sodium (Docusate Sodium 100 Mg Cap) 100 mg PO BID [facility] Last Admin: 07/23/21 09:28 Dose: 100 mg Documented by: Enoxaparin Sodium (Enoxaparin 40 Mg/0.4 Ml Syringe) 40 mg SUBCUT DAILY [facility] Last Admin: 07/23/21 09:28 Dose: 40 mg Documented by: Hydromorphone HCl (Hydromorphone 0.5 Mg/0.5 Ml Syringe) 0.5 mg IVPUSH Q1H PRN PRN Reason: Pain Last Admin: 07/23/21 09:28 Dose: 0.5 mg Documented by: Lidocaine (Lidocaine 5% 700 Mg Patch) 1,400 mg TOP DAILY@1800 [facility] Last Admin: 07/22/21 17:31 Dose: 1,400 mg Documented by: Naloxone HCl (Naloxone 2 Mg/2 Ml Syringe) 0.04 mg IVPUSH Q3M PRN PRN Reason: Respiratory Depression Ondansetron HCl (Ondansetron 4 Mg/2 Ml Sdv) 4 mg IVPUSH Q6H PRN PRN Reason: Nausea/Vomiting Last Admin: 07/20/21 07:41 Dose: 4 mg Documented by: Discontinued Medications Hydromorphone HCl (Hydromorphone 0.5 Mg/0.5 Ml Syringe) 0.5 mg IVPUSH ONETIME ONE Stop: 07/18/21 14:33 Last Admin: 07/19/21 00:04 Dose: Not Given Documented by: Hydromorphone HCl (Hydromorphone 1 Mg/Ml Syringe) 1 mg IVPUSH ONETIME ONE Stop: 07/18/21 15:55 Last Admin: 07/19/21 00:04 Dose: Not Given Documented by: Hydromorphone HCl (Hydromorphone 1 Mg/Ml Syringe) 1 mg IVPUSH ONETIME ONE Stop: 07/18/21 16:33 Last Admin: 07/19/21 00:04 Dose: Not Given Documented by: Hydromorphone HCl (Hydromorphone 0.5 Mg/0.5 Ml Syringe) 0.5 mg IV .STK-MED ONE Stop: 07/18/21 14:59 Hydromorphone HCl (Hydromorphone 1 Mg/Ml Syringe) 1 mg IV .STK-MED ONE Stop: 07/18/21 15:00 Hydromorphone HCl (Hydromorphone 1 Mg/Ml Syringe) 1 mg IV .STK-MED ONE Stop: 07/18/21 16:36 Lactated Ringer's (Ringers, Lactated) 1,000 mls @ 125 mls/hr IV ASDIRECTED [facility] Last Admin: 07/21/21 02:10 Dose: 125 mls/hr Documented by: Magnesium Sulfate 2 gm/ Premix 50 mls @ 25 mls/hr IV ONETIME ONE Stop: 07/18/21 18:56 Last Admin: 07/19/21 00:07 Dose: Not Given Documented by: Potassium Chloride/Sodium Chloride (Normal Saline With 40 Meq Kcl) 1,000 mls @ 999 mls/hr IV ASDIRECTED [facility] Lactated Ringer's (Ringers, Lactated) 1,000 mls @ as directed IV .STK-MED ONE Stop: 07/18/21 16:01 Iopamidol (Iopamidol 612 Mg/Ml 100 Ml Bottle) 100 ml IVPUSH ONETIME ONE Stop: 07/18/21 14:29 Last Admin: 07/18/21 15:46 Dose: 100 ml Documented by: Ketorolac Tromethamine (Ketorolac 30 Mg/Ml Sdv) 30 mg IVPUSH Q6H [facility] Stop: 07/19/21 11:31 Last Admin: 07/19/21 11:56 Dose: 30 mg Documented by: Ketorolac Tromethamine (Ketorolac 30 Mg/Ml Sdv) 30 mg IVPUSH Q6H [facility] Stop: 07/21/21 19:01 Last Admin: 07/21/21 18:06 Dose: 30 mg Documented by: Lidocaine (Lidocaine 5% 700 Mg Patch) 0 mg TOP Q12H [facility] Last Admin: 07/20/21 05:23 Dose: Not Given Documented by: Miscellaneous Information (Remove Lidocaine Patches) 1 ea TRDERM DAILY@0600 [facility] Last Admin: 07/21/21 06:13 Dose: Not Given Documented by: Morphine Sulfate (Morphine Pf 30 Mg/30 Ml Precast Worker Vial) 0 mg IV ASDIRECTED PRN; Protocol PRN Reason: Pain Morphine Sulfate (Morphine Pf 30 Mg/30 Ml Precast Worker Vial) 0 mg IV ASDIRECTED PRN; Protocol PRN Reason: Pain Last Admin: 07/20/21 14:03 Dose: 30 mg Documented by: Ondansetron HCl (Ondansetron 4 Mg/2 Ml Sdv) 4 mg IVPUSH ONETIME ONE Stop: 07/18/21 16:29 Last Admin: 07/19/21 00:06 Dose: Not Given Documented by: Ondansetron HCl (Ondansetron 4 Mg/2 Ml Sdv) 4 mg IV .STK-MED ONE Stop: 07/18/21 16:35 Polyethylene Glycol (Polyethylene Glycol 3350 Powder 17 Gm Packet) 51 gm PO ONETIME ONE Stop: 07/22/21 16:33 Last Admin: 07/22/21 17:29 Dose: 51 gm Documented by: - Exam Physical Findings Comments:: General: Zeeshan is a 61-year-old man in no acute distress Oropharynx is clear, mucous membranes are moist Heart: Regular rate and rhythm, no murmurs Lower extremities: He is moving his lower extremities well, peripheral pulses are intact - Patient Data Result Diagrams: 07/18/21 14:33 07/18/21 14:33 Sepsis Event Note - Evaluation Sepsis Screening Result: No Definite Risk - Focused Exam Vital Signs: Vital Signs Temp Pulse Resp BP BP Pulse Ox 07/23/21 07:53 98.8 F 78 20 151/84 H 96 07/23/21 04:00 98.5 F 63 18 112/49 L 95 07/23/21 00:00 99.0 F 72 18 136/75 97 - Problem List & Annotations (1) Contusion, back SNOMED Code(s): 05457078 Code(s): S20.229A - CONTUSION OF UNSPECIFIED BACK WALL OF THORAX, INIT ENCNTR Status: Acute Current Visit: Yes Qualifiers: Encounter type: initial encounter (2) Intractable back pain SNOMED Code(s): 052531139 Code(s): M54.9 - DORSALGIA, UNSPECIFIED Status: Acute Current Visit: Yes (3) Lumbar transverse process fracture SNOMED Code(s): 039741619 Code(s): S32.009A - UNSP FRACTURE OF UNSP LUMBAR VERTEBRA, INIT FOR CLOS FX Status: Acute Current Visit: Yes Qualifiers: Encounter type: initial encounter Fracture type: closed Qualified Code(s): S32.009A - Unspecified fracture of unspecified lumbar vertebra, initial encounter for closed fracture (4) Trauma SNOMED Code(s): 516051470 Code(s): T14.90XA - INJURY, UNSPECIFIED, INITIAL ENCOUNTER Status: Acute Current Visit: Yes - Problem List Review Problem List Initiated/Reviewed/Updated: Yes - Plan Plan:: Assessment/Plan: 1. 61-year-old man with multiple level transverse process fracture of the lumbar spine, as well as severe contusions of the low back and right hip -Will start scheduled oral oxycodone -Lidoderm patches to his lumbar spine to help control pain -Continue as needed hydromorphone IV -awaiting lumbar brace for pain control, TLSO brace will need to be fitted as outpatient -Continue physical and occupational therapy 2. Acute constipation, secondary to back injury and narcotic administration -136 grams of miralax with 32 ounces of oral fluids should get him cleared out nicely 3. VTE prophylaxis: Continue Lovenox, 40 mg subcu daily for prophylaxis until he is mobilized better
[2021-07-23] MEDS ORDERED: Polyethylene Glycol 3350 Powder 17 GM Packet PO ONE (10:00)
[2021-07-23] MEDS: Ondansetron 4 MG/2 ML SDV IVPUSH PRN (13:57)
[2021-07-23] MEDS: Lidocaine 5% 700 MG Patch TOP SCH (18:14)
[2021-07-24] MEDS: HYDROmorphone 0.5 MG/0.5 ML Syringe IVPUSH PRN ×5 (02:17→17:55)
[2021-07-24] MEDS: Acetaminophen/HYDROcodone 325-10 MG Tab PO PRN ×3 (09:39→22:05)
[2021-07-24] MEDS: Docusate Sodium 100 MG Cap PO SCH ×2 (09:52→20:18)
[2021-07-24] MEDS: Enoxaparin 40 MG/0.4 ML Syringe SUBCUT SCH (09:52)
[2021-07-24] MEDS: Celecoxib 100 MG Cap PO SCH ×2 (09:52→20:18)
--- NOTE | 2021-07-24 11:41 | PCM.PN ---
- General Info Date of Service: 07/24/21 Admission Dx/Problem (Free Text): Admission Diagnosis/Problem Admission Diagnosis/Problem Spinous process fracture, Trauma Subjective Update: Zeeshan is having a good morning this morning. He was able to get cleaned out well with his MiraLAX dosing yesterday. He feels much better in this regard. We did not yet get that lumbar support brace for him, that should be arriving today. - Patient Data Vitals - Most Recent: Last Vital Signs Temp 99.5 F 07/24/21 04:00 Pulse 64 07/24/21 04:00 Resp 20 07/24/21 04:00 BP 124/76 07/24/21 04:00 Pulse Ox 94 L 07/24/21 04:00 Weight - Most Recent: 205 lb 11.2 oz I&O - Last 24 Hours: Intake & Output 07/23/21 07/24/21 07/24/21 22:59 06:59 14:59 Intake Total 420 300 Output Total 550 1600 600 Balance -130 -1300 -600 Med Orders - Current: Current Medications Hydrocodone Bitart/Acetaminophen (Acetaminophen/Hydrocodone 325-10 Mg Tab) 1 tab PO Q6H PRN PRN Reason: Pain (moderate 4-6) Last Admin: 07/24/21 09:39 Dose: 1 tab Documented by: Celecoxib (Celecoxib 100 Mg Cap) 200 mg PO BID [facility] Last Admin: 07/24/21 09:52 Dose: 200 mg Documented by: Docusate Sodium (Docusate Sodium 100 Mg Cap) 100 mg PO BID [facility] Last Admin: 07/24/21 09:52 Dose: 100 mg Documented by: Enoxaparin Sodium (Enoxaparin 40 Mg/0.4 Ml Syringe) 40 mg SUBCUT DAILY [facility] Last Admin: 07/24/21 09:52 Dose: 40 mg Documented by: Hydromorphone HCl (Hydromorphone 0.5 Mg/0.5 Ml Syringe) 0.5 mg IVPUSH Q4H PRN PRN Reason: Pain (severe 7-10) Lidocaine (Lidocaine 5% 700 Mg Patch) 1,400 mg TOP DAILY@1800 [facility] Last Admin: 07/23/21 18:14 Dose: 1,400 mg Documented by: Naloxone HCl (Naloxone 2 Mg/2 Ml Syringe) 0.04 mg IVPUSH Q3M PRN PRN Reason: Respiratory Depression Ondansetron HCl (Ondansetron 4 Mg/2 Ml Sdv) 4 mg IVPUSH Q6H PRN PRN Reason: Nausea/Vomiting Last Admin: 07/23/21 13:57 Dose: 4 mg Documented by: Discontinued Medications Hydromorphone HCl (Hydromorphone 0.5 Mg/0.5 Ml Syringe) 0.5 mg IVPUSH ONETIME ONE Stop: 07/18/21 14:33 Last Admin: 07/19/21 00:04 Dose: Not Given Documented by: Hydromorphone HCl (Hydromorphone 1 Mg/Ml Syringe) 1 mg IVPUSH ONETIME ONE Stop: 07/18/21 15:55 Last Admin: 07/19/21 00:04 Dose: Not Given Documented by: Hydromorphone HCl (Hydromorphone 1 Mg/Ml Syringe) 1 mg IVPUSH ONETIME ONE Stop: 07/18/21 16:33 Last Admin: 07/19/21 00:04 Dose: Not Given Documented by: Hydromorphone HCl (Hydromorphone 0.5 Mg/0.5 Ml Syringe) 0.5 mg IVPUSH Q1H PRN PRN Reason: Pain Last Admin: 07/24/21 07:31 Dose: 0.5 mg Documented by: Hydromorphone HCl (Hydromorphone 0.5 Mg/0.5 Ml Syringe) 0.5 mg IV .STK-MED ONE Stop: 07/18/21 14:59 Hydromorphone HCl (Hydromorphone 1 Mg/Ml Syringe) 1 mg IV .STK-MED ONE Stop: 07/18/21 15:00 Hydromorphone HCl (Hydromorphone 1 Mg/Ml Syringe) 1 mg IV .STK-MED ONE Stop: 07/18/21 16:36 Lactated Ringer's (Ringers, Lactated) 1,000 mls @ 125 mls/hr IV ASDIRECTED [facility] Last Admin: 07/21/21 02:10 Dose: 125 mls/hr Documented by: Magnesium Sulfate 2 gm/ Premix 50 mls @ 25 mls/hr IV ONETIME ONE Stop: 07/18/21 18:56 Last Admin: 07/19/21 00:07 Dose: Not Given Documented by: Potassium Chloride/Sodium Chloride (Normal Saline With 40 Meq Kcl) 1,000 mls @ 999 mls/hr IV ASDIRECTED [facility] Lactated Ringer's (Ringers, Lactated) 1,000 mls @ as directed IV .STK-MED ONE Stop: 07/18/21 16:01 Iopamidol (Iopamidol 612 Mg/Ml 100 Ml Bottle) 100 ml IVPUSH ONETIME ONE Stop: 07/18/21 14:29 Last Admin: 07/18/21 15:46 Dose: 100 ml Documented by: Ketorolac Tromethamine (Ketorolac 30 Mg/Ml Sdv) 30 mg IVPUSH Q6H [facility] Stop: 07/19/21 11:31 Last Admin: 07/19/21 11:56 Dose: 30 mg Documented by: Ketorolac Tromethamine (Ketorolac 30 Mg/Ml Sdv) 30 mg IVPUSH Q6H [facility] Stop: 07/21/21 19:01 Last Admin: 07/21/21 18:06 Dose: 30 mg Documented by: Lidocaine (Lidocaine 5% 700 Mg Patch) 0 mg TOP Q12H [facility] Last Admin: 07/20/21 05:23 Dose: Not Given Documented by: Miscellaneous Information (Remove Lidocaine Patches) 1 ea TRDERM DAILY@0600 [facility] Last Admin: 07/21/21 06:13 Dose: Not Given Documented by: Morphine Sulfate (Morphine Pf 30 Mg/30 Ml Slackman Vial) 0 mg IV ASDIRECTED PRN; Protocol PRN Reason: Pain Morphine Sulfate (Morphine Pf 30 Mg/30 Ml Slackman Vial) 0 mg IV ASDIRECTED PRN; Protocol PRN Reason: Pain Last Admin: 07/20/21 14:03 Dose: 30 mg Documented by: Ondansetron HCl (Ondansetron 4 Mg/2 Ml Sdv) 4 mg IVPUSH ONETIME ONE Stop: 07/18/21 16:29 Last Admin: 07/19/21 00:06 Dose: Not Given Documented by: Ondansetron HCl (Ondansetron 4 Mg/2 Ml Sdv) 4 mg IV .STK-MED ONE Stop: 07/18/21 16:35 Polyethylene Glycol (Polyethylene Glycol 3350 Powder 17 Gm Packet) 51 gm PO ONETIME ONE Stop: 07/22/21 16:33 Last Admin: 07/22/21 17:29 Dose: 51 gm Documented by: Polyethylene Glycol (Polyethylene Glycol 3350 Powder 17 Gm Packet) 136 gm PO ONETIME ONE Stop: 07/23/21 10:01 Last Admin: 07/23/21 10: Dose: 136 gm Documented by: - Exam Physical Findings Comments:: General: Zeeshan is a 61-year-old man in no acute distress Oropharynx is clear, mucous membranes are moist He is moving all his extremities normally - Patient Data Result Diagrams: 07/18/21 14:33 07/18/21 14:33 Sepsis Event Note - Evaluation Sepsis Screening Result: No Definite Risk - Focused Exam Vital Signs: Vital Signs Temp Pulse Resp BP Pulse Ox 07/24/21 04:00 99.5 F 64 20 124/76 94 L 07/24/21 00:00 99.2 F 67 19 128/76 93 L - Problem List & Annotations (1) Contusion, back SNOMED Code(s): 76756635 Code(s): S20.229A - CONTUSION OF UNSPECIFIED BACK WALL OF THORAX, INIT ENCNTR Status: Acute Current Visit: Yes Qualifiers: Encounter type: initial encounter (2) Intractable back pain SNOMED Code(s): 706234294 Code(s): M54.9 - DORSALGIA, UNSPECIFIED Status: Acute Current Visit: Yes (3) Lumbar transverse process fracture SNOMED Code(s): 147200842 Code(s): S32.009A - UNSP FRACTURE OF UNSP LUMBAR VERTEBRA, INIT FOR CLOS FX Status: Acute Current Visit: Yes Qualifiers: Encounter type: initial encounter Fracture type: closed Qualified Code(s ): S32.009A - Unspecified fracture of unspecified lumbar vertebra, initial encounter for closed fracture (4) Trauma SNOMED Code(s): 484697464 Code(s): T14.90XA - INJURY, UNSPECIFIED, INITIAL ENCOUNTER Status: Acute Current Visit: Yes - Problem List Review Problem List Initiated/Reviewed/Updated: Yes - My Orders Last 24 Hours: My Active Orders 07/24/21 09:10 Acetaminophen/HYDROcodone [[place] 325-10 MG] 1 tab PO Q6H PRN 07/24/21 09:15 Celecoxib [CeleBREX] 200 mg PO BID 07/24/21 11:30 HYDROmorphone [Dilaudid] 0.5 mg IVPUSH Q4H PRN - Plan Plan:: Assessment/Plan: 1. 61-year-old man with multiple level transverse process fracture of the lumbar spine, as well as severe contusions of the low back and right hip -Will start scheduled oral hydrocodone -Celebrex, 200 mg twice daily -Lidoderm patches to his lumbar spine to help control pain -Continue as needed hydromorphone IV -awaiting lumbar brace for pain control, TLSO brace will need to be fitted as outpatient -Continue physical and occupational therapy 2. VTE prophylaxis: Continue Lovenox, 40 mg subcu daily for prophylaxis until he is mobilized better
[2021-07-24] MEDS: Lidocaine 5% 700 MG Patch TOP SCH (18:30)
[2021-07-25] MEDS: HYDROmorphone 0.5 MG/0.5 ML Syringe IVPUSH PRN ×7 (00:30→22:39)
[2021-07-25] MEDS: Acetaminophen/HYDROcodone 325-10 MG Tab PO PRN (07:38)
[2021-07-25] MEDS: Celecoxib 100 MG Cap PO SCH ×3 (07:40→20:38)
[2021-07-25] MEDS: Enoxaparin 40 MG/0.4 ML Syringe SUBCUT SCH ×2 (07:40→08:34)
[2021-07-25] MEDS: Docusate Sodium 100 MG Cap PO SCH ×2 (08:34→20:38)
--- NOTE | 2021-07-25 14:49 | PCM.PN ---
- General Info Date of Service: 07/25/21 Admission Dx/Problem (Free Text): Admission Diagnosis/Problem Admission Diagnosis/Problem Spinous process fracture, Trauma, back pain Subjective Update: continued to have severe pain in the back since fall sharp, non radiating, no associated bowel and bladder incontinence worse with movements better with IV dilaudid started to use lumbar brace Functional Status: Reports: Tolerating Diet. Denies: Pain Controlled, Ambulating - Patient Data Vitals - Most Recent: Last Vital Signs Temp 97.4 F 07/25/21 12:00 Pulse 63 07/25/21 12:00 Resp 20 07/25/21 12:00 BP 119/63 07/25/21 12:00 Pulse Ox 95 07/25/21 12:00 Weight - Most Recent: 205 lb 11.2 oz I&O - Last 24 Hours: Intake & Output 07/24/21 07/25/21 07/25/21 22:59 06:59 14:59 Intake Total 410 200 240 Output Total 325 Balance 85 200 240 Med Orders - Current: Current Medications Celecoxib (Celecoxib 100 Mg Cap) 200 mg PO BID [facility] Last Admin: 07/25/21 08:34 Dose: Not Given Documented by: Cyclobenzaprine HCl (Cyclobenzaprine 10 Mg Tab) 5 mg PO TID [facility] Docusate Sodium (Docusate Sodium 100 Mg Cap) 100 mg PO BID [facility] Last Admin: 07/25/21 08:34 Dose: Not Given Documented by: Enoxaparin Sodium (Enoxaparin 40 Mg/0.4 Ml Syringe) 40 mg SUBCUT DAILY [facility] Last Admin: 07/25/21 08:34 Dose: Not Given Documented by: Hydromorphone HCl (Hydromorphone 0.5 Mg/0.5 Ml Syringe) 0.5 mg IVPUSH Q2H PRN PRN Reason: Pain (severe 7-10) Lidocaine (Lidocaine 5% 700 Mg Patch) 1,400 mg TOP DAILY@1800 [facility] Last Admin: 07/24/21 18:30 Dose: 1,400 mg Documented by: Naloxone HCl (Naloxone 2 Mg/2 Ml Syringe) 0.04 mg IVPUSH Q3M PRN PRN Reason: Respiratory Depression Ondansetron HCl (Ondansetron 4 Mg/2 Ml Sdv) 4 mg IVPUSH Q6H PRN PRN Reason: Nausea/Vomiting Last Admin: 07/23/21 13:57 Dose: 4 mg Documented by: Oxycodone HCl (Oxycodone 5 Mg Tab) 5 mg PO Q4H PRN PRN Reason: Pain (moderate 4-6) Polyethylene Glycol (Polyethylene Glycol 3350 Powder 17 Gm Packet) 17 gm PO DAILY [facility] Discontinued Medications Hydrocodone Bitart/Acetaminophen (Acetaminophen/Hydrocodone 325-10 Mg Tab) 1 tab PO Q6H PRN PRN Reason: Pain (moderate 4-6) Last Admin: 07/25/21 07:38 Dose: 1 tab Documented by: Hydromorphone HCl (Hydromorphone 0.5 Mg/0.5 Ml Syringe) 0.5 mg IVPUSH ONETIME ONE Stop: 07/18/21 14:33 Last Admin: 07/19/21 00:04 Dose: Not Given Documented by: Hydromorphone HCl (Hydromorphone 1 Mg/Ml Syringe) 1 mg IVPUSH ONETIME ONE Stop: 07/18/21 15:55 Last Admin: 07/19/21 00:04 Dose: Not Given Documented by: Hydromorphone HCl (Hydromorphone 1 Mg/Ml Syringe) 1 mg IVPUSH ONETIME ONE Stop: 07/18/21 16:33 Last Admin: 07/19/21 00:04 Dose: Not Given Documented by: Hydromorphone HCl (Hydromorphone 0.5 Mg/0.5 Ml Syringe) 0.5 mg IVPUSH Q1H PRN PRN Reason: Pain Last Admin: 07/24/21 07:31 Dose: 0.5 mg Documented by: Hydromorphone HCl (Hydromorphone 0.5 Mg/0.5 Ml Syringe) 0.5 mg IV .STK-MED ONE Stop: 07/18/21 14:59 Hydromorphone HCl (Hydromorphone 1 Mg/Ml Syringe) 1 mg IV .STK-MED ONE Stop: 07/18/21 15:00 Hydromorphone HCl (Hydromorphone 1 Mg/Ml Syringe) 1 mg IV .STK-MED ONE Stop: 07/18/21 16:36 Hydromorphone HCl (Hydromorphone 0.5 Mg/0.5 Ml Syringe) 0.5 mg IVPUSH Q4H PRN PRN Reason: Pain (severe 7-10) Last Admin: 07/25/21 13:21 Dose: 0.5 mg Documented by: Lactated Ringer's (Ringers, Lactated) 1,000 mls @ 125 mls/hr IV ASDIRECTED [facility] Last Admin: 07/21/21 02:10 Dose: 125 mls/hr Documented by: Magnesium Sulfate 2 gm/ Premix 50 mls @ 25 mls/hr IV ONETIME ONE Stop: 07/18/21 18:56 Last Admin: 07/19/21 00:07 Dose: Not Given Documented by: Potassium Chloride/Sodium Chloride (Normal Saline With 40 Meq Kcl) 1,000 mls @ 999 mls/hr IV ASDIRECTED [facility] Lactated Ringer's (Ringers, Lactated) 1,000 mls @ as directed IV .STK-MED ONE Stop: 07/18/21 16:01 Iopamidol (Iopamidol 612 Mg/Ml 100 Ml Bottle) 100 ml IVPUSH ONETIME ONE Stop: 07/18/21 14:29 Last Admin: 07/18/21 15:46 Dose: 100 ml Documented by: Ketorolac Tromethamine (Ketorolac 30 Mg/Ml Sdv) 30 mg IVPUSH Q6H [facility] Stop: 07/19/21 11:31 Last Admin: 07/19/21 11:56 Dose: 30 mg Documented by: Ketorolac Tromethamine (Ketorolac 30 Mg/Ml Sdv) 30 mg IVPUSH Q6H [facility] Stop: 07/21/21 19:01 Last Admin: 07/21/21 18:06 Dose: 30 mg Documented by: Lidocaine (Lidocaine 5% 700 Mg Patch) 0 mg TOP Q12H [facility] Last Admin: 07/20/21 05:23 Dose: Not Given Documented by: Miscellaneous Information (Remove Lidocaine Patches) 1 ea TRDERM DAILY@0600 [facility] Last Admin: 07/21/21 06:13 Dose: Not Given Documented by: Morphine Sulfate (Morphine Pf 30 Mg/30 Ml Brand Sales Manager Vial) 0 mg IV ASDIRECTED PRN; Protocol PRN Reason: Pain Morphine Sulfate (Morphine Pf 30 Mg/30 Ml Brand Sales Manager Vial) 0 mg IV ASDIRECTED PRN; Protocol PRN Reason: Pain Last Admin: 07/20/21 14:03 Dose: 30 mg Documented by: Ondansetron HCl (Ondansetron 4 Mg/2 Ml Sdv) 4 mg IVPUSH ONETIME ONE Stop: 07/18/21 16:29 Last Admin: 07/19/21 00:06 Dose: Not Given Documented by: Ondansetron HCl (Ondansetron 4 Mg/2 Ml Sdv) 4 mg IV .STK-MED ONE Stop: 07/18/21 16:35 Polyethylene Glycol (Polyethylene Glycol 3350 Powder 17 Gm Packet) 51 gm PO ONETIME ONE Stop: 07/22/21 16:33 Last Admin: 07/22/21 17:29 Dose: 51 gm Documented by: Polyethylene Glycol (Polyethylene Glycol 3350 Powder 17 Gm Packet) 136 gm PO ONETIME ONE Stop: 07/23/21 10:01 Last Admin: 07/23/21 10:21 Dose: 136 gm Documented by: - Exam General: Alert, Oriented Neck: Supple Lungs: Clear to Auscultation, Normal Respiratory Effort Cardiovascular: Regular Rate, Regular Rhythm GI/Abdominal Exam: Normal Bowel Sounds, Soft Extremities: No Pedal Edema Skin: Warm, Dry Neurological: No New Focal Deficit Psy/Mental Status: Alert, Normal Affect, Normal Mood - Patient Data Result Diagrams: 07/18/21 14:33 07/18/21 14:33 Sepsis Event Note - Evaluation Sepsis Screening Result: No Definite Risk - Focused Exam Vital Signs: Vital Signs Temp Pulse Resp BP Pulse Ox 07/25/21 12:00 97.4 F 63 20 119/63 95 07/25/21 07:50 97.5 F 62 18 119/63 95 07/25/21 04:00 98.3 F 74 20 132/72 95 - Problem List & Annotations (1) Intractable back pain SNOMED Code(s): 010028906 Code(s): M54.9 - DORSALGIA, UNSPECIFIED Status: Acute Current Visit: Yes (2) Lumbar transverse process fracture SNOMED Code(s): 852299262 Code(s): S32.009A - UNSP FRACTURE OF UNSP LUMBAR VERTEBRA, INIT FOR CLOS FX Status: Acute Current Visit: Yes Qualifiers: Encounter type: initial encounter Fracture type: closed Qualified Co de(s): S32.009A - Unspecified fracture of unspecified lumbar vertebra, initial encounter for closed fracture (3) Trauma SNOMED Code(s): 347299677 Code(s): T14.90XA - INJURY, UNSPECIFIED, INITIAL ENCOUNTER Status: Acute Current Visit: Yes - Problem List Review Problem List Initiated/Reviewed/Updated: Yes - My Orders Last 24 Hours: My Active Orders 07/25/21 14:46 oxyCODONE 5 mg PO Q4H PRN 07/25/21 14:47 HYDROmorphone [Dilaudid] 0.5 mg IVPUSH Q2H PRN 07/25/21 15:00 Cyclobenzaprine [Flexeril] 5 mg PO TID polyethylene glycoL 3350 [MiraLAX] 17 gm PO DAILY - Plan Plan:: Assessment/Plan: 1. 61-year-old man with multiple level transverse process fracture of the lumbar spine, as well as severe contusions of the low back and right hip case was evaluated by neurosurgery - no surgical intervention was suggested medical management with pain management and pt/ot stop hydrocodone - add oxycontin for more frequent administration cont celebrex, 200 mg twice daily cont Lidoderm patches to his lumbar spine to help control pain add flexeril Continue as needed hydromorphone IV cont lumbar brace for pain control, TLSO brace will need to be fitted as outpatient Continue physical and occupational therapy 2. VTE prophylaxis: Continue Lovenox daily for prophylaxis until he is mobilized better
[2021-07-25] MEDS: Cyclobenzaprine 10 MG Tab PO SCH ×2 (15:12→20:37)
[2021-07-25] MEDS: oxyCODONE 5 MG Tab PO PRN ×2 (15:13→22:34)
[2021-07-25] MEDS: Polyethylene Glycol 3350 Powder 17 GM Packet PO SCH (15:14)
[2021-07-25] MEDS: Lidocaine 5% 700 MG Patch TOP SCH (17:39)
[2021-07-26] MEDS: HYDROmorphone 0.5 MG/0.5 ML Syringe IVPUSH PRN ×6 (02:11→22:58)
[2021-07-26] MEDS: Celecoxib 100 MG Cap PO SCH ×3 (07:39→20:31)
[2021-07-26] MEDS: Docusate Sodium 100 MG Cap PO SCH ×3 (07:39→20:31)
[2021-07-26] MEDS: Polyethylene Glycol 3350 Powder 17 GM Packet PO SCH ×2 (07:39→09:42)
[2021-07-26] MEDS: Enoxaparin 40 MG/0.4 ML Syringe SUBCUT SCH ×2 (07:39→09:41)
[2021-07-26] MEDS: Cyclobenzaprine 10 MG Tab PO SCH ×4 (07:39→20:31)
[2021-07-26] MEDS: oxyCODONE 5 MG Tab PO PRN ×3 (09:56→20:34)
--- NOTE | 2021-07-26 11:59 | PCM.PN ---
- General Info Date of Service: 07/26/21 Admission Dx/Problem (Free Text): Admission Diagnosis/Problem Admission Diagnosis/Problem Spinous process fracture, Trauma, back pain Subjective Update: continued to have severe pain in the back since fall, days ago sharp, non radiating, no associated bowel and bladder incontinence or problem with LE sensation / movements worse with movements better with IV dilaudid - still needed IV pain meds frequently overnight started to use lumbar brace Functional Status: Reports: Tolerating Diet. Denies: Pain Controlled, Ambulating - Patient Data Vitals - Most Recent: Last Vital Signs Temp 98.4 F 07/26/21 11:48 Pulse 75 07/26/21 11:48 Resp 20 07/26/21 11:48 BP 95/52 L 07/26/21 11:48 Pulse Ox 95 07/26/21 11:48 Weight - Most Recent: 205 lb 11.2 oz I&O - Last 24 Hours: Intake & Output 07/25/21 07/26/21 07/26/21 22:59 06:59 14:59 Intake Total 760 625 200 Output Total 625 900 600 Balance 135 -275 -400 Med Orders - Current: Current Medications Celecoxib (Celecoxib 100 Mg Cap) 200 mg PO BID [facility] Last Admin: 07/26/21 09:41 Dose: Not Given Documented by: Cyclobenzaprine HCl (Cyclobenzaprine 10 Mg Tab) 5 mg PO TID [facility] Last Admin: 07/26/21 09:41 Dose: Not Given Documented by: Docusate Sodium (Docusate Sodium 100 Mg Cap) 100 mg PO BID [facility] Last Admin: 07/26/21 09:41 Dose: Not Given Documented by: Enoxaparin Sodium (Enoxaparin 40 Mg/0.4 Ml Syringe) 40 mg SUBCUT DAILY [facility] Last Admin: 07/26/21 09:41 Dose: Not Given Documented by: Fentanyl (Fentanyl 25 Mcg/Hr Transdermal Patch) 25 mcg TRDERM Q72H [facility] Hydromorphone HCl (Hydromorphone 0.5 Mg/0.5 Ml Syringe) 0.5 mg IVPUSH Q2H PRN PRN Reason: Pain (severe 7-10) Last Admin: 07/26/21 09:56 Dose: 0.5 mg Documented by: Lidocaine (Lidocaine 5% 700 Mg Patch) 1,400 mg TOP DAILY@1800 [facility] Last Admin: 07/25/21 17:39 Dose: 1,400 mg Documented by: Naloxone HCl (Naloxone 2 Mg/2 Ml Syringe) 0.04 mg IVPUSH Q3M PRN PRN Reason: Respiratory Depression Ondansetron HCl (Ondansetron 4 Mg/2 Ml Sdv) 4 mg IVPUSH Q6H PRN PRN Reason: Nausea/Vomiting Last Admin: 07/23/21 13:57 Dose: 4 mg Documented by: Oxycodone HCl (Oxycodone 5 Mg Tab) 5 mg PO Q4H PRN PRN Reason: Pain (moderate 4-6) Last Admin: 07/26/21 09:56 Dose: 5 mg Documented by: Polyethylene Glycol (Polyethylene Glycol 3350 Powder 17 Gm Packet) 17 gm PO DAILY [facility] Last Admin: 07/26/21 09:42 Dose: Not Given Documented by: Discontinued Medications Hydrocodone Bitart/Acetaminophen (Acetaminophen/Hydrocodone 325-10 Mg Tab) 1 tab PO Q6H PRN PRN Reason: Pain (moderate 4-6) Last Admin: 07/25/21 07:38 Dose: 1 tab Documented by: Hydromorphone HCl (Hydromorphone 0.5 Mg/0.5 Ml Syringe) 0.5 mg IVPUSH ONETIME ONE Stop: 07/18/21 14:33 Last Admin: 07/19/21 00:04 Dose: Not Given Documented by: Hydromorphone HCl (Hydromorphone 1 Mg/Ml Syringe) 1 mg IVPUSH ONETIME ONE Stop: 07/18/21 15:55 Last Admin: 07/19/21 00:04 Dose: Not Given Documented by: Hydromorphone HCl (Hydromorphone 1 Mg/Ml Syringe) 1 mg IVPUSH ONETIME ONE Stop: 07/18/21 16:33 Last Admin: 07/19/21 00:04 Dose: Not Given Documented by: Hydromorphone HCl (Hydromorphone 0.5 Mg/0.5 Ml Syringe) 0.5 mg IVPUSH Q1H PRN PRN Reason: Pain Last Admin: 07/24/21 07:31 Dose: 0.5 mg Documented by: Hydromorphone HCl (Hydromorphone 0.5 Mg/0.5 Ml Syringe) 0.5 mg IV .STK-MED ONE Stop: 07/18/21 14:59 Hydromorphone HCl (Hydromorphone 1 Mg/Ml Syringe) 1 mg IV .STK-MED ONE Stop: 07/18/21 15:00 Hydromorphone HCl (Hydromorphone 1 Mg/Ml Syringe) 1 mg IV .STK-MED ONE Stop: 07/18/21 16:36 Hydromorphone HCl (Hydromorphone 0.5 Mg/0.5 Ml Syringe) 0.5 mg IVPUSH Q4H PRN PRN Reason: Pain (severe 7-10) Last Admin: 07/25/21 13:21 Dose: 0.5 mg Documented by: Lactated Ringer's (Ringers, Lactated) 1,000 mls @ 125 mls/hr IV ASDIRECTED [facility] Last Admin: 07/21/21 02:10 Dose: 125 mls/hr Documented by: Magnesium Sulfate 2 gm/ Premix 50 mls @ 25 mls/hr IV ONETIME ONE Stop: 07/18/21 18:56 Last Admin: 07/19/21 00:07 Dose: Not Given Documented by: Potassium Chloride/Sodium Chloride (Normal Saline With 40 Meq Kcl) 1,000 mls @ 999 mls/hr IV ASDIRECTED [facility] Lactated Ringer's (Ringers, Lactated) 1,000 mls @ as directed IV .STK-MED ONE Stop: 07/18/21 16:01 Iopamidol (Iopamidol 612 Mg/Ml 100 Ml Bottle) 100 ml IVPUSH ONETIME ONE Stop: 07/18/21 14:29 Last Admin: 07/18/21 15:46 Dose: 100 ml Documented by: Ketorolac Tromethamine (Ketorolac 30 Mg/Ml Sdv) 30 mg IVPUSH Q6H [facility] Stop: 07/19/21 11:31 Last Admin: 07/19/21 11:56 Dose: 30 mg Documented by: Ketorolac Tromethamine (Ketorolac 30 Mg/Ml Sdv) 30 mg IVPUSH Q6H [facility] Stop: 07/21/21 19:01 Last Admin: 07/21/21 18:06 Dose: 30 mg Documented by: Lidocaine (Lidocaine 5% 700 Mg Patch) 0 mg TOP Q12H [facility] Last Admin: 07/20/21 05:23 Dose: Not Given Documented by: Miscellaneous Information (Remove Lidocaine Patches) 1 ea MELVIN DAILY@0600 [facility] Last Admin: 07/21/21 06:13 Dose: Not Given Documented by: Morphine Sulfate (Morphine Pf 30 Mg/30 Ml Measurement Analyst Vial) 0 mg IV ASDIRECTED PRN; Protocol PRN Reason: Pain Morphine Sulfate (Morphine Pf 30 Mg/30 Ml Measurement Analyst Vial) 0 mg IV ASDIRECTED PRN; Protocol PRN Reason: Pain Last Admin: 07/20/21 14:03 Dose: 30 mg Documented by: Ondansetron HCl (Ondansetron 4 Mg/2 Ml Sdv) 4 mg IVPUSH ONETIME ONE Stop: 07/18/21 16:29 Last Admin: 07/19/21 00:06 Dose: Not Given Documented by: Ondansetron HCl (Ondansetron 4 Mg/2 Ml Sdv) 4 mg IV .STK-MED ONE Stop: 07/18/21 16:35 Polyethylene Glycol (Polyethylene Glycol 3350 Powder 17 Gm Packet) 51 gm PO ONETIME ONE Stop: 07/22/21 16:33 Last Admin: 07/22/21 17:29 Dose: 51 gm Documented by: Polyethylene Glycol (Polyethylene Glycol 3350 Powder 17 Gm Packet) 136 gm PO ONETIME ONE Stop: 07/23/21 10:01 Last Admin: 07/23/21 10:21 Dose: 136 gm Documented by: - Exam General: Alert, Oriented Neck: Supple Lungs: Clear to Auscultation, Normal Respiratory Effort Cardiovascular: Regular Rate, Regular Rhythm GI/Abdominal Exam: Normal Bowel Sounds, Soft, Non-Tender Skin: Warm, Dry Neurological: No New Focal Deficit Psy/Mental Status: Alert, Normal Affect, Normal Mood - Patient Data Result Diagrams: 07/18/21 14:33 07/18/21 14:33 Sepsis Event Note - Evaluation Sepsis Screening Result: No Definite Risk - Focused Exam Vital Signs: Vital Signs Temp Pulse Resp BP Pulse Ox 07/26/21 11:48 98.4 F 75 20 95/52 L 95 07/26/21 08:00 97.6 F 65 18 136/81 96 - Problem List & Annotations (1) Intractable back pain SNOMED Code(s): 254213427 Code(s): M54.9 - DORSALGIA, UNSPECIFIED Status: Acute Current Visit: Yes (2) Lumbar transverse process fracture SNOMED Code(s): 913958600 Code(s): S32.009A - UNSP FRACTURE OF UNSP LUMBAR VERTEBRA, INIT FOR CLOS FX Status: Acute Current Visit: Yes Qualifiers: Encounter type: initial encounter Fracture type: closed Qualified Code(s): S32.009A - Unspecified fracture of unspecified lumbar vertebra, initial encounter for closed fracture (3) Trauma SNOMED Code(s): 356785555 Code(s): T14.90XA - INJURY, UNSPECIFIED, INITIAL ENCOUNTER Status: Acute Current Visit: Yes - Problem List Review Problem List Initiated/Reviewed/Updated: Yes - My Orders Last 24 Hours: My Active Orders 07/25/21 14:46 oxyCODONE 5 mg PO Q4H PRN 07/25/21 14:47 HYDROmorphone [Dilaudid] 0.5 mg IVPUSH Q2H PRN 07/25/21 15:00 Cyclobenzaprine [Flexeril] 5 mg PO TID polyethylene glycoL 3350 [MiraLAX] 17 gm PO DAILY 07/26/21 12:00 fentaNYL [Duragesic] 25 mcg TRDERM Q72H 07/27/21 05:15 BASIC METABOLIC PANEL,BMP [CHEM] AM CBC WITH AUTO DIFF [HEME] AM - Plan Plan:: Assessment/Plan: 1. 61-year-old man with multiple level transverse process fracture of the lumbar spine, as well as severe contusions of the low back and right hip case was evaluated by neurosurgery - no surgical intervention was suggested medical management with pain management and pt/ot pain is still not well controlled - required frequent IV Dilauded prn cont scheduled celebrex, flexeril, lidoderm patch add Fentanyl patch cont prn oxycodone, IV dilaudid cont lumbar brace for pain control, TLSO brace will need to be fitted as outpatient Continue physical and occupational therapy 2. VTE prophylaxis: Continue Lovenox daily for prophylaxis until he is mobi lized better
[2021-07-26] MEDS ORDERED: fentaNYL 25 MCG/HR Transdermal Patch TRDERM SCH (12:00)
[2021-07-26] MEDS: Lidocaine 5% 700 MG Patch TOP SCH (17:42)
[2021-07-27] MEDS: oxyCODONE 5 MG Tab PO PRN ×5 (03:45→23:37)
[2021-07-27 07:10] LABS: ANION GAP 11.7 mEq/L (7-13); CHLORIDE,CL 101 mmol/L (98-107); SODIUM,NA 139 mmol/L (136-145)
[2021-07-27] MEDS: Cyclobenzaprine 10 MG Tab PO SCH ×3 (09:22→20:42)
[2021-07-27] MEDS: Docusate Sodium 100 MG Cap PO SCH ×2 (09:22→20:44)
[2021-07-27] MEDS: Celecoxib 100 MG Cap PO SCH ×2 (09:23→20:41)
[2021-07-27] MEDS: Polyethylene Glycol 3350 Powder 17 GM Packet PO SCH (09:24)
[2021-07-27] MEDS: Enoxaparin 40 MG/0.4 ML Syringe SUBCUT SCH (09:24)
[2021-07-27] MEDS: HYDROmorphone 0.5 MG/0.5 ML Syringe IVPUSH PRN ×3 (10:28→20:54)
--- NOTE | 2021-07-27 11:40 | PCM.PN ---
- General Info Date of Service: 07/27/21 Admission Dx/Problem (Free Text): Admission Diagnosis/Problem Admission Diagnosis/Problem Spinous process fracture, Trauma, back pain Subjective Update: continued to have pain in the back, improved since yesterday - still ep isodically severe but was able to sleep better since fall, days ago sharp, non radiating, no associated bowel and bladder incontinence no problem with LE sensation / movements worse with movements did not get out of bed yesterday Functional Status: Reports: Pain Controlled (better controlled), Tolerating Diet. Denies: Ambulating - Review of Systems General: Denies: Fever, Weakness Pulmonary: Denies: Shortness of Breath Cardiovascular: Denies: Chest Pain, Edema Neurological: Denies: Confusion - Patient Data Vitals - Most Recent: Last Vital Signs Temp 98.5 F 07/27/21 07:39 Pulse 70 07/27/21 07:39 Resp 18 07/27/21 07:39 BP 106/53 L 07/27/21 07:39 Pulse Ox 96 07/27/21 07:39 Weight - Most Recent: 205 lb 11.2 oz I&O - Last 24 Hours: Intake & Output 07/26/21 07/27/21 07/27/21 22:59 06:59 14:59 Intake Total 1220 660 Output Total 1200 400 Balance 1220 -540 -400 Lab Results Last 24 Hours: Laboratory Results - last 24 hr 07/27/21 07/27/21 Range/Units 06:15 06:15 WBC 6.2 (5.0-10.0) 10^3/uL RBC 3.90 L (4.6-6.2) 10^6/uL Hgb 13.2 L (14.0-18.0) g/dL Hct 38.6 L (40.0-54.0) % MCV 99.0 (80-100) fL MCH 33.8 (27.0-34.0) pg MCHC 34.2 (33.0-35.0) g/dL Plt Count 302 D (150-450) 10^3/uL Neut % (Auto) 68.5 (42.2-75.2) % Lymph % (Auto) 16.1 L (20.5-50.1) % Mason % (Auto) 10.1 H (2-8) % Eos % (Auto) 5.1 H (1.0-3.0) % Baso % (Auto) 0.2 (0.0-1.0) % Sodium 139 (136-145) mmol/L Potassium 4.7 (3.5-5.1) mmol/L Chloride 101 (98-107) mmol/L Carbon Dioxide 31 (21-32) mmol/L Anion Gap 11.7 (7-13) mEq/L BUN 19 H (7-18) mg/dL Creatinine 0.99 (0.70-1.30) mg/dL Est Cr Clr Drug Dosing 86.31 mL/min Estimated GFR (MDRD) > 60 Glucose 101 H (70-99) mg/dL Calcium 9.0 (8.5-10.1) mg/dL Med Orders - Current: Current Medications Celecoxib (Celecoxib 100 Mg Cap) 200 mg PO BID [facility] Last Admin: 07/27/21 09:23 Dose: 200 mg Documented by: Cyclobenzaprine HCl (Cyclobenzaprine 10 Mg Tab) 5 mg PO TID [facility] Last Admin: 07/27/21 09:22 Dose: 5 mg Documented by: Docusate Sodium (Docusate Sodium 100 Mg Cap) 100 mg PO BID [facility] Last Admin: 07/27/21 09:22 Dose: 100 mg Documented by: Enoxaparin Sodium (Enoxaparin 40 Mg/0.4 Ml Syringe) 40 mg SUBCUT DAILY [facility] Last Admin: 07/27/21 09:24 Dose: 40 mg Documented by: Fentanyl (Fentanyl 25 Mcg/Hr Transdermal Patch) 25 mcg TRDERM Q72H [facility] Last Admin: 07/26/21 12:23 Dose: 25 mcg Documented by: Hydromorphone HCl (Hydromorphone 0.5 Mg/0.5 Ml Syringe) 0.5 mg IVPUSH Q2H PRN PRN Reason: Pain (severe 7-10) Last Admin: 07/27/21 10:28 Dose: 0.5 mg Documented by: Lidocaine (Lidocaine 5% 700 Mg Patch) 1,400 mg TOP DAILY@1800 [facility] Last Admin: 07/26/21 17:42 Dose: 1,400 mg Documented by: Miscellaneous Information (Check Patch) 1 ea TRDERM BEDTIME [facility] Last Admin: 07/26/21 20:36 Dose: 1 ea Documented by: Naloxone HCl (Naloxone 2 Mg/2 Ml Syringe) 0.04 mg IVPUSH Q3M PRN PRN Reason: Respiratory Depression Ondansetron HCl (Ondansetron 4 Mg/2 Ml Sdv) 4 mg IVPUSH Q6H PRN PRN Reason: Nausea/Vomiting Last Admin: 07/23/21 13:57 Dose: 4 mg Documented by: Oxycodone HCl (Oxycodone 5 Mg Tab) 7.5 mg PO Q4H PRN PRN Reason: Pain (moderate 4-6) Last Admin: 07/27/21 07:52 Dose: 7.5 mg Documented by: Polyethylene Glycol (Polyethylene Glycol 3350 Powder 17 Gm Packet) 17 gm PO DAILY [facility] Last Admin: 07/27/21 09:24 Dose: 17 gm Documented by: Discontinued Medications Hydrocodone Bitart/Acetaminophen (Acetaminophen/Hydrocodone 325-10 Mg Tab) 1 tab PO Q6H PRN PRN Reason: Pain (moderate 4-6) Last Admin: 07/25/21 07:38 Dose: 1 tab Documented by: Hydromorphone HCl (Hydromorphone 0.5 Mg/0.5 Ml Syringe) 0.5 mg IVPUSH ONETIME ONE Stop: 07/18/21 14:33 Last Admin: 07/19/21 00:04 Dose: Not Given Documented by: Hydromorphone HCl (Hydromorphone 1 Mg/Ml Syringe) 1 mg IVPUSH ONETIME ONE Stop: 07/18/21 15:55 Last Admin: 07/19/21 00:04 Dose: Not Given Documented by: Hydromorphone HCl (Hydromorphone 1 Mg/Ml Syringe) 1 mg IVPUSH ONETIME ONE Stop: 07/18/21 16:33 Last Admin: 07/19/21 00:04 Dose: Not Given Documented by: Hydromorphone HCl (Hydromorphone 0.5 Mg/0.5 Ml Syringe) 0.5 mg IVPUSH Q1H PRN PRN Reason: Pain Last Admin: 07/24/21 07:31 Dose: 0.5 mg Documented by: Hydromorphone HCl (Hydromorphone 0.5 Mg/0.5 Ml Syringe) 0.5 mg IV .STK-MED ONE Stop: 07/18/21 14:59 Hydromorphone HCl (Hydromorphone 1 Mg/Ml Syringe) 1 mg IV .STK-MED ONE Stop: 07/18/21 15:00 Hydromorphone HCl (Hydromorphone 1 Mg/Ml Syringe) 1 mg IV .STK-MED ONE Stop: 07/18/21 16:36 Hydromorphone HCl (Hydromorphone 0.5 Mg/0.5 Ml Syringe) 0.5 mg IVPUSH Q4H PRN PRN Reason: Pain (severe 7-10) Last Admin: 07/25/21 13:21 Dose: 0.5 mg Documented by: Lactated Ringer's (Ringers, Lactated) 1,000 mls @ 125 mls/hr IV ASDIRECTED [facility] Last Admin: 07/21/21 02:10 Dose: 125 mls/hr Documented by: Magnesium Sulfate 2 gm/ Premix 50 mls @ 25 mls/hr IV ONETIME ONE Stop: 07/18/21 18:56 Last Admin: 07/19/21 00:07 Dose: Not Given Documented by: Potassium Chloride/Sodium Chloride (Normal Saline With 40 Meq Kcl) 1,000 mls @ 999 mls/hr IV ASDIRECTED [facility] Lactated Ringer's (Ringers, Lactated) 1,000 mls @ as directed IV .STK-MED ONE Stop: 07/18/21 16:01 Iopamidol (Iopamidol 612 Mg/Ml 100 Ml Bottle) 100 ml IVPUSH ONETIME ONE Stop: 07/18/21 14:29 Last Admin: 07/18/21 15:46 Dose: 100 ml Documented by: Ketorolac Tromethamine (Ketorolac 30 Mg/Ml Sdv) 30 mg IVPUSH Q6H [facility] Stop: 07/19/21 11:31 Last Admin: 07/19/21 11:56 Dose: 30 mg Documented by: Ketorolac Tromethamine (Ketorolac 30 Mg/Ml Sdv) 30 mg IVPUSH Q6H [facility] Stop: 07/21/21 19:01 Last Admin: 07/21/21 18:06 Dose: 30 mg Documented by: Lidocaine (Lidocaine 5% 700 Mg Patch) 0 mg TOP Q12H [facility] Last Admin: 07/20/21 05:23 Dose: Not Given Documented by: Miscellaneous Information (Remove Lidocaine Patches) 1 ea MELVIN DAILY@0600 [facility] Last Admin: 07/21/21 06:13 Dose: Not Given Documented by: Morphine Sulfate (Morphine Pf 30 Mg/30 Ml Fleet Assistant Vial) 0 mg IV ASDIRECTED PRN; Protocol PRN Reason: Pain Morphine Sulfate (Morphine Pf 30 Mg/30 Ml Fleet Assistant Vial) 0 mg IV ASDIRECTED PRN; Protocol PRN Reason: Pain Last Admin: 07/20/21 14:03 Dose: 30 mg Documented by: Ondansetron HCl (Ondansetron 4 Mg/2 Ml Sdv) 4 mg IVPUSH ONETIME ONE Stop: 07/18/21 16:29 Last Admin: 07/19/21 00:06 Dose: Not Given Documented by: Ondansetron HCl (Ondansetron 4 Mg/2 Ml Sdv) 4 mg IV .STK-MED ONE Stop: 07/18/21 16:35 Oxycodone HCl (Oxycodone 5 Mg Tab) 5 mg PO Q4H PRN PRN Reason: Pain (moderate 4-6) Last Admin: 07/26/21 09:56 Dose: 5 mg Documented by: Polyethylene Glycol (Polyethylene Glycol 3350 Powder 17 Gm Packet) 51 gm PO ONETIME ONE Stop: 07/22/21 16:33 Last Admin: 07/22/21 17:29 Dose: 51 gm Documented by: Polyethylene Glycol (Polyethylene Glycol 3350 Powder 17 Gm Packet) 136 gm PO ONETIME ONE Stop: 07/23/21 10:01 Last Admin: 07/23/21 10:21 Dose: 136 gm Documented by: - Exam General: Alert, Oriented Lungs: Clear to Auscultation Cardiovascular: Regular Rate, Regular Rhythm GI/Abdominal Exam: Normal Bowel Sounds, Soft, Non-Tender Extremities: No Pedal Edema Skin: Warm, Dry Neurological: No New Focal Deficit Psy/Mental Status: Alert, Normal Affect, Normal Mood - Patient Data Lab Results Last 24 hrs: Laboratory Results - last 24 hr 07/27/21 07/27/21 Range/Units 06:15 06:15 WBC 6.2 (5.0-10.0) 10^3/uL RBC 3.90 L (4.6-6.2) 10^6/uL Hgb 13.2 L (14.0-18.0) g/dL Hct 38.6 L (40.0-54.0) % MCV 99.0 (80-100) fL MCH 33.8 (27.0-34.0) pg MCHC 34.2 (33.0-35.0) g/dL Plt Count 302 D (150-450) 10^3/uL Neut % (Auto) 68.5 (42.2-75.2) % Lymph % (Auto) 16.1 L (20.5-50.1) % Mason % (Auto) 10.1 H (2-8) % Eos % (Auto) 5.1 H (1.0-3.0) % Baso % (Auto) 0.2 (0.0-1.0) % Sodium 139 (136-145) mmol/L Potassium 4.7 (3.5-5.1) mmol/L Chloride 101 (98-107) mmol/L Carbon Dioxide 31 (21-32) mmol/L Anion Gap 11.7 (7-13) mEq/L BUN 19 H (7-18) mg/dL Creatinine 0.99 (0.70-1.30) mg/dL Est Cr Clr Drug Dosing 86.31 mL/min Estimated GFR (MDRD) > 60 Glucose 101 H (70-99) mg/dL Calcium 9.0 (8.5-10.1) mg/dL Result Diagrams: 07/27/21 06:15 07/27/21 06:15 Sepsis Event Note - Evaluation Sepsis Screening Result: No Definite Risk - Focused Exam Vital Signs: Vital Signs Temp Pulse Resp BP Pulse Ox 07/27/21 07:39 98.5 F 70 18 106/53 L 96 - Problem List & Annotations (1) Intractable back pain SNOMED Code(s): 967872874 Code(s): M54.9 - DORSALGIA, UNSPECIFIED Status: Acute Current Visit: Yes (2) Lumbar transverse process fracture SNOMED Code(s): 482082789 Code(s): S32.009A - UNSP FRACTURE OF UNSP LUMBAR VERTEBRA, INIT FOR CLOS FX Status: Acute Current Visit: Yes Qualifiers: Encounter type: initial encounter Fracture type: closed Qualified Code(s): S32.009A - Unspecified fracture of unspecified lumbar vertebra, initial encounter for closed fracture (3) Trauma SNOMED Code(s): 211788372 Code(s): T14.90XA - INJURY, UNSPECIFIED, INITIAL ENCOUNTER Status: Acute Current Visit: Yes - Problem List Review Problem List Initiated/Reviewed/Updated: Yes - My Orders Last 24 Hours: My Active Orders 07/26/21 12:00 fentaNYL [Duragesic] 25 mcg TRDERM Q72H 07/26/21 12:42 oxyCODONE 7.5 mg PO Q4H PRN 07/26/21 21:00 Check Patch 1 ea TRDERM BEDTIME 07/27/21 11:37 Lumbar Spine Comp w wo Cont [MR] Routine - Plan Plan:: Assessment/Plan: 1. 61-year-old man with multiple level transverse process fracture of the lumbar spine, as well as severe contusions of the low back and right hip case was evaluated by neurosurgery - no surgical intervention was suggested medical management with pain management and pt/ot pain is better controlled - try to limit Dilaudid prn cont scheduled celebrex, flexeril, lidoderm patch cont Fentanyl patch cont prn oxycodone, IV dilaudid cont lumbar brace for pain control, TLSO brace will need to be fitted as outpatient will obtain MRI L spine and set up NSurgery follow up Continue physical and occupational therapy 2. VTE prophylaxis: Continue Lovenox daily for prophylaxis until he is mobilized better
--- NOTE | 2021-07-27 18:09 | MR ---
EXAMINATION: Lumbar Spine Comp wo Cont SEX: Male AGE: 61 years CLINICAL HISTORY: 61 year-old 205 pound injured in work-related fall (2 story building), left flank and lumbar pain. CT 18 July 2021 revealed "displaced transverse process fractures L1, L2, L3, L4 on the left; fracture through the superior endplate L3 into the superior facet on the right; questionable fracture L1; multilevel degenerative disc disease with central stenosis." Scan technique: Sagittal T1/T2/T2 fat saturation and unenhanced axial T1/T2 magnetic resonance images of the lower thoracic, entire lumbar spine, and upper sacrum obtained with the patient lying supine on the [employer] 1.[employer] magnet [place], [place]. All data archived in the PACS system for storage, reformatting axial/sagittal/coronal planes and study. Interpretation: Abnormal. 1. Chronic multilevel disc degeneration, i.e. desiccation/flattening nucleus pulposus intervertebral discs with type II Modic reactive changes adjacent endplates and hypertrophic marginal spondylosis particularly L1-2, L3-4, L4-5, L5-S1 levels. 2. Displaced transverse process fractures, on the left, most clearly demonstrated on CT spine 18 July 2021. 3. *No compression fractures or spondylolisthesis lumbar spine. Chronic reactive arthritic changes facet joints. 4. Disc-osteophyte complexes contributing to mild upper lumbar spinal canal stenosis. 5. Larger focal disc herniation with prominent osteophytes that contribute to a more pronounced lower lumbar spinal canal stenosis at the L5-S1 and, particularly, at the L4-5 levels. 6. No intracanalicular soft tissue tumor mass. No extruded "free" intracanalicular disc fragments. 7. No adhesions of the cauda equina. No "tethering" of the terminal spinal cord.
[2021-07-27] MEDS ORDERED: Sodium Chloride 0.9% 10 ML Syringe FLUSH PRN (21:00)
[2021-07-28] MEDS: oxyCODONE 5 MG Tab PO PRN (05:14)
[2021-07-28] MEDS: HYDROmorphone 0.5 MG/0.5 ML Syringe IVPUSH PRN ×2 (06:47→11:02)
[2021-07-28] MEDS ORDERED: Lidocaine 5% 700 MG Patch TOP SCH (09:00)
[2021-07-28] MEDS: Celecoxib 100 MG Cap PO SCH (09:13)
[2021-07-28] MEDS: Docusate Sodium 100 MG Cap PO SCH (09:14)
[2021-07-28] MEDS: Cyclobenzaprine 10 MG Tab PO SCH (09:14)
[2021-07-28] MEDS: Polyethylene Glycol 3350 Powder 17 GM Packet PO SCH (09:16)
[2021-07-28] MEDS: Enoxaparin 40 MG/0.4 ML Syringe SUBCUT SCH (09:16)
--- NOTE | 2021-07-28 10:37 | PCM.DCSUM1 ---
Discharge Summary - Hospital Course Free Text/Narrative:: 1. 61-year-old man with multiple level transverse process fracture of the lumbar spine, as well as severe contusions of the low back and right hip case was evaluated by neurosurgery - no surgical intervention was suggested medical management with pain management and pt/ot pain is better controlled - try to limit Dilaudid prn cont scheduled celebrex, flexeril, lidoderm patch cont Fentanyl patch cont prn oxycodone, IV dilaudid cont lumbar brace for pain control, TLSO brace will need to be fitted plan to follow up with NSurgery Continue physical and occupational therapy - transfer to swing [facility] constipation follow with stool softeners 2. VTE prophylaxis: Continue Lovenox daily for prophylaxis until he is mobilized better Diagnosis: Stroke: No - Discharge Data Discharge Date: 07/28/21 Discharge Disposition: DC/Tfer W/I Hosp To [place] [id number] Condition: Good - Referral to Home Health Primary Care Physician: PCP None - Discharge Diagnosis/Problem(s) (1) Intractable back pain SNOMED Code(s): 609248567 ICD Code: M54.9 - DORSALGIA, UNSPECIFIED Status: Acute Current Visit: Yes (2) Lumbar transverse process fracture SNOMED Code(s): 931333006 ICD Code: S32.009A - UNSP FRACTURE OF UNSP LUMBAR VERTEBRA, INIT FOR CLOS FX Status: Acute Current Visit: Yes Qualifiers: Encounter type: initial encounter Fracture type: closed Qualified Code(s): S32.009A - Unspecified fracture of unspecified lumbar vertebra, initial encounter for closed fracture (3) Trauma SNOMED Code(s): 840418518 ICD Code: T14.90XA - INJURY, UNSPECIFIED, INITIAL ENCOUNTER Status: Acute Current Visit: Yes - Patient Summary/Data Consults: Consultations 07/20/21 10:31 Consult to Occupational Therapy [OT Evaluation and Treatment] [CONS] Routine Consult to Physical Therapy [PT Evaluation and Treatment] [CONS] Routine - Patient Instructions Diet: Heart Healthy Diet Activity: As Tolerated - Discharge Plan *PRESCRIPTION DRUG MONITORING PROGRAM REVIEWED*: Not Applicable *COPY OF PRESCRIPTION DRUG MONITORING REPORT IN PATIENT MARIANELA: Not Applicable Home Medications: Home Meds . [No Known Home Meds] 03/30/14 [History] Oxygen Therapy Mode: Room Air - Discharge Summary/Plan Comment DC Time >30 min.: No Total # of Minutes for Discharge Time: 20 min - General Info Date of Service: 07/28/21 Admission Dx/Problem (Free Text: Admission Diagnosis/Problem Admission Diagnosis/Problem Spinous process fracture, Trauma, back pain Subjective Update: continued to have pain in the back, improved since yesterday - still episodically severe but was able to stand up since fall, days ago sharp, non radiating, no associated bowel and bladder incontinence no problem with LE sensation / LE movements worse with movements also noted left lateral upper thigh pain Functional Status: Reports: Pain Controlled, Tolerating Diet. Denies: Ambulating - Review of Systems Pulmonary: Denies: Shortness of Breath Cardiovascular: Denies: Chest Pain, Edema Gastrointestinal: Denies: Abdominal Pain Neurological: Denies: Confusion - Patient Data Vitals - Most Recent: Last Vital Signs Temp 97.0 F 07/28/21 07:41 Pulse 64 07/28/21 07:41 Resp 18 07/28/21 07:41 BP 116/71 07/28/21 07:41 Pulse Ox 93 L 07/28/21 07:41 Weight - Most Recent: 205 lb 11.2 oz I&O - Last 24 hours: Intake & Output 07/27/21 07/28/21 07/28/21 22:59 06:59 14:59 Intake Total 520 300 680 Output Total 600 800 Balance -80 -500 680 Med Orders - Current: Current Medications Celecoxib (Celecoxib 100 Mg Cap) 200 mg PO BID [facility] Last Admin: 07/28/21 09:13 Dose: 200 mg Documented by: Cyclobenzaprine HCl (Cyclobenzaprine 10 Mg Tab) 5 mg PO TID [facility] Last Admin: 07/28/21 09:14 Dose: 5 mg Documented by: Docusate Sodium (Docusate Sodium 100 Mg Cap) 100 mg PO BID [facility] Last Admin: 07/28/21 09:14 Dose: 100 mg Documented by: Enoxaparin Sodium (Enoxaparin 40 Mg/0.4 Ml Syringe) 40 mg SUBCUT DAILY [facility] Last Admin: 07/28/21 09:16 Dose: 40 mg Documented by: Fentanyl (Fentanyl 25 Mcg/Hr Transdermal Patch) 25 mcg TRDERM Q72H [facility] Last Admin: 07/26/21 12:23 Dose: 25 mcg Documented by: Hydromorphone HCl (Hydromorphone 0.5 Mg/0.5 Ml Syringe) 0.5 mg IVPUSH Q2H PRN PRN Reason: Pain (severe 7-10) Last Admin: 07/28/21 06:47 Dose: 0.5 mg Documented by: Lidocaine (Lidocaine 5% 700 Mg Patch) 1,400 mg TOP DAILY [facility] Last Admin: 07/28/21 09:16 Dose: 1,400 mg Documented by: Miscellaneous Information (Check Fentanyl Patch) 1 ea TRDERM BEDTIME [facility] Last Admin: 07/27/21 21:09 Dose: 1 ea Documented by: Miscellaneous Information (Remove Fentanyl Patch) 1 ea TRDERM Q72H [facility] Miscellaneous Information (Remove Lidocaine Patches) 2 ea TRDERM DAILY@2100 [facility] Naloxone HCl (Naloxone 2 Mg/2 Ml Syringe) 0.04 mg IVPUSH Q3M PRN PRN Reason: Respiratory Depression Ondansetron HCl (Ondansetron 4 Mg/2 Ml Sdv) 4 mg IVPUSH Q6H PRN PRN Reason: Nausea/Vomiting Last Admin: 07/23/21 13:57 Dose: 4 mg Documented by: Oxycodone HCl (Oxycodone 5 Mg Tab) 7.5 mg PO Q4H PRN PRN Reason: Pain (moderate 4-6) Last Admin: 07/28/21 05:14 Dose: 7.5 mg Documented by: Polyethylene Glycol (Polyethylene Glycol 3350 Powder 17 Gm Packet) 17 gm PO DAILY [facility] Last Admin: 07/28/21 09:16 Dose: 17 gm Documented by: Sodium Chloride (Sodium Chloride 0.9% 10 Ml Syringe) 10 ml FLUSH ASDIRECTED PRN PRN Reason: IV Use Last Admin: 07/28/21 06:46 Dose: 10 ml Documented by: Discontinued Medications Hydrocodone Bitart/Acetaminophen (Acetaminophen/Hydrocodone 325-10 Mg Tab) 1 tab PO Q6H PRN PRN Reason: Pain (moderate 4-6) Last Admin: 07/25/21 07:38 Dose: 1 tab Documented by: Hydromorphone HCl (Hydromorphone 0.5 Mg/0.5 Ml Syringe) 0.5 mg IVPUSH ONETIME ONE Stop: 07/18/21 14:33 Last Admin: 07/19/21 00:04 Dose: Not Given Documented by: Hydromorphone HCl (Hydromorphone 1 Mg/Ml Syringe) 1 mg IVPUSH ONETIME ONE Stop: 07/18/21 15:55 Last Admin: 07/19/21 00:04 Dose: Not Given Documented by: Hydromorphone HCl (Hydromorphone 1 Mg/Ml Syringe) 1 mg IVPUSH ONETIME ONE Stop: 07/18/21 16:33 Last Admin: 07/19/21 00:04 Dose: Not Given Documented by: Hydromorphone HCl (Hydromorphone 0.5 Mg/0.5 Ml Syringe) 0.5 mg IVPUSH Q1H PRN PRN Reason: Pain Last Admin: 07/24/21 07:31 Dose: 0.5 mg Documented by: Hydromorphone HCl (Hydromorphone 0.5 Mg/0.5 Ml Syringe) 0.5 mg IV .STK-MED ONE Stop: 07/18/21 14:59 Hydromorphone HCl (Hydromorphone 1 Mg/Ml Syringe) 1 mg IV .STK-MED ONE Stop: 07/18/21 15:00 Hydromorphone HCl (Hydromorphone 1 Mg/Ml Syringe) 1 mg IV .STK-MED ONE Stop: 07/18/21 16:36 Hydromorphone HCl (Hydromorphone 0.5 Mg/0.5 Ml Syringe) 0.5 mg IVPUSH Q4H PRN PRN Reason: Pain (severe 7-10) Last Admin: 07/25/21 13:21 Dose: 0.5 mg Documented by: Lactated Ringer's (Ringers, Lactated) 1,000 mls @ 125 mls/hr IV ASDIRECTED [facility] Last Admin: 07/21/21 02:10 Dose: 125 mls/hr Documented by: Magnesium Sulfate 2 gm/ Premix 50 mls @ 25 mls/hr IV ONETIME ONE Stop: 07/18/21 18:56 Last Admin: 07/19/21 00:07 Dose: Not Given Documented by: Potassium Chloride/Sodium Chloride (Normal Saline With 40 Meq Kcl) 1,000 mls @ 999 mls/hr IV ASDIRECTED [facility] Lactated Ringer's (Ringers, Lactated) 1,000 mls @ as directed IV .STK-MED ONE Stop: 07/18/21 16:01 Iopamidol (Iopamidol 612 Mg/Ml 100 Ml Bottle) 100 ml IVPUSH ONETIME ONE Stop: 07/18/21 14:29 Last Admin: 07/18/21 15:46 Dose: 100 ml Documented by: Ketorolac Tromethamine (Ketorolac 30 Mg/Ml Sdv) 30 mg IVPUSH Q6H [facility] Stop: 07/19/21 11:31 Last Admin: 07/19/21 11:56 Dose: 30 mg Documented by: Ketorolac Tromethamine (Ketorolac 30 Mg/Ml Sdv) 30 mg IVPUSH Q6H [facility] Stop: 07/21/21 19:01 Last Admin: 07/21/21 18:06 Dose: 30 mg Documented by: Lidocaine (Lidocaine 5% 700 Mg Patch) 0 mg TOP Q12H [facility] Last Admin: 07/20/21 05:23 Dose: Not Given Documented by: Lidocaine (Lidocaine 5% 700 Mg Patch) 1,400 mg TOP DAILY@1800 [facility] Last Admin: 07/26/21 17:42 Dose: 1,400 mg Documented by: Miscellaneous Information (Remove Lidocaine Patches) 1 ea TRDERM DAILY@0600 [facility] Last Admin: 07/21/21 06:13 Dose: Not Given Documented by: Miscellaneous Information (Remove Lidocaine Patches) 0 ea TRDERM ONETIME ONE Stop: 07/27/21 13:16 Miscellaneous Information (Remove Lidocaine Patches) 1 ea TRDERM ONETIME ONE Stop: 07/27/21 13:16 Miscellaneous Information (Remove Lidocaine Patches) 2 ea TRDERM DAILY [facility] Stop: 07/27/21 15:01 Last Admin: 07/27/21 15:16 Dose: Not Given Documented by: Morphine Sulfate (Morphine Pf 30 Mg/30 Ml Clinical Editor Vial) 0 mg IV ASDIRECTED PRN; Protocol PRN Reason: Pain Morphine Sulfate (Morphine Pf 30 Mg/30 Ml Clinical Editor Vial) 0 mg IV ASDIRECTED PRN; Protocol PRN Reason: Pain Last Admin: 07/20/21 14:03 Dose: 30 mg Documented by: Ondansetron HCl (Ondansetron 4 Mg/2 Ml Sdv) 4 mg IVPUSH ONETIME ONE Stop: 07/18/21 16:29 Last Admin: 07/19/21 00:06 Dose: Not Given Documented by: Ondansetron HCl (Ondansetron 4 Mg/2 Ml Sdv) 4 mg IV .STK-MED ONE Stop: 07/18/21 16:35 Oxycodone HCl (Oxycodone 5 Mg Tab) 5 mg PO Q4H PRN PRN Reason: Pain (moderate 4-6) Last Admin: 07/26/21 09:56 Dose: 5 mg Documented by: Polyethylene Glycol (Polyethylene Glycol 3350 Powder 17 Gm Packet) 51 gm PO ONETIME ONE Stop: 07/22/21 16:33 Last Admin: 07/22/21 17:29 Dose: 51 gm Documented by: Polyethylene Glycol (Polyethylene Glycol 3350 Powder 17 Gm Packet) 136 gm PO ONETIME ONE Stop: 07/23/21 10:01 Last Admin: 07/23/21 10:21 Dose: 136 gm Documented by: - Exam General: Reports: Alert, Oriented Neck: Reports: Supple Lungs: Reports: Clear to Auscultation, Normal Respiratory Effort Cardiovascular: Reports: Regular Rate, Regular Rhythm GI/Abdominal Exam: Soft, Non-Tender Extremities: Normal Inspection, Normal Range of Motion, No Pedal Edema Skin: Reports: Warm, Dry Neurological: Reports: No New Focal Deficit Psy/Mental Status: Reports: Alert, Normal Affect, Normal Mood
== END 2021-07-28 11:29 | disposition swing bed (61) | DRG 552 ==
LOC: DL.ED 14:44 → DL.MS 16:50
PROVIDERS: ADMIT Family Medicine; ATTEND Internal Medicine
DX: S32.029A Unspecified fracture of second lumbar vertebra, initial encounter for closed fracture (principal); W01.0XXA Fall on same level from slipping, tripping and stumbling without subsequent striking against object, initial encounter; S70.01XA Contusion of right hip, initial encounter; M54.50 Low back pain, unspecified; K59.00 Constipation, unspecified; S30.0XXA Contusion of lower back and pelvis, initial encounter; Z20.822 Contact with and (suspected) exposure to COVID-19
CPT/HCPCS: 36415; 71260; 72125; 72131; 72148; 74177; 80048; 80053; 81001; 85025; 97150-GP; 97161-GP; 97166-GO; 97530-GO; 97530-GP; 99285-25; A9270-GY; J1170; J1650; J1885; J2274; J2405; J7120; Q9967; U0002

== ENCOUNTER 2021-07-28 10:56 | Inpatient (IN) | payer OTHER ==
[2021-07-28] MEDS ORDERED: Ondansetron 4 MG/2 ML SDV IVPUSH PRN (11:13)
[2021-07-28] MEDS ORDERED: Naloxone 2 MG/2 ML Syringe IVPUSH PRN (11:13)
--- NOTE | 2021-07-28 11:23 | PCM.HP ---
H&P History of Present Illness - General Date of Service: 07/28/21 Admit Problem/Dx: Admission Diagnosis/Problem Admission Diagnosis/Problem Spinous process fracture Source of Information: Patient - History of Present Illness Initial Comments - Free Text/Narative: fell off roof suffered L spine fractures conservative pt/ot is suggested by neurosurgery transferred to Swing bed for pt/ot - Related Data Allergies/Adverse Reactions: Allergies Allergy/AdvReac Type Severity Reaction Status Date / Time No Known Allergies Allergy Verified 03/30/14 12:34 Home Medications: Home Meds . [No Known Home Meds] 03/30/14 [History] Past Medical History HEENT History: Reports: None Cardiovascular History: Reports: None Respiratory History: Reports: None Gastrointestinal History: Reports: Other (See Below) Other Gastrointestinal History: ulcers Genitourinary History: Reports: None Musculoskeletal History: Reports: None Neurological History: Reports: None Psychiatric History: Reports: None Endocrine/Metabolic History: Reports: None Hematologic History: Reports: None Immunologic History: Reports: None Oncologic (Cancer) History: Reports: None Dermatologic History: Reports: None - Infectious Disease History Infectious Disease History: Reports: None - Past Surgical History HEENT Surgical History: Reports: None Cardiovascular Surgical History: Reports: None Respiratory Surgical History: Reports: None Male Surgical History: Reports: None Musculoskeletal Surgical History: Reports: None Social & Family History - Family History Family Medical History: No Pertinent Family History - Caffeine Use Caffeine Use: Reports: None H&P Review of Systems - Review of Systems: Review Of Systems: See Below General: Denies: Fever Pulmonary: Denies: Shortness of Breath Cardiovascular: Denies: Chest Pain, Edema Psychiatric: Denies: Confusion Neurological: Denies: Numbness, Paresthesia Exam - Exam Exam: See Below - Exam General: Alert, Oriented Neck: Supple Lungs: Clear to Auscultation Cardiovascular: Regular Rate, Regular Rhythm GI/Abdominal Exam: Normal Bowel Sounds, Soft, Non-Tender Extremities: No Pedal Edema Neurological: Cranial Nerves Intact, Strength Equal Bilateral. No: Focal Deficit Neuro Extensive - Mental Status: Alert, Oriented x3, Normal Mood/Affect Psychiatric: Alert, Normal Affect, Normal Mood - Problem List (1) Contusion, back SNOMED Code(s): 12896858 ICD Code: S20.229A - CONTUSION OF UNSPECIFIED BACK WALL OF THORAX, INIT ENCNTR Status: Acute (2) Intractable back pain SNOMED Code(s): 284409829 ICD Code: M54.9 - DORSALGIA, UNSPECIFIED Status: Acute (3) Lumbar transverse process fracture SNOMED Code(s): 965754626 ICD Code: S32.009A - UNSP FRACTURE OF UNSP LUMBAR VERTEBRA, INIT FOR CLOS FX Status: Acute (4) Trauma SNOMED Code(s): 964791946 ICD Code: T14.90XA - INJURY, UNSPECIFIED, INITIAL ENCOUNTER Status: Acute Problem List Initiated/Reviewed/Updated: Yes Orders Last 24hrs: Active Orders 24 hr Category Date Time Status Admission Diagnosis [ADT] Stat ADT 07/28/21 11:13 Ordered Admission Status [Patient Status] [ADT] Routine ADT 07/28/21 11:15 Ordered Bedrest Bathroom Privileges [RC] ASDIRECTED Care 07/28/21 11:13 Ordered Oxygen Therapy [RC] PRN Care 07/28/21 11:13 Ordered VTE/DVT Education [RC] PER UNIT ROUTINE Care 07/28/21 11:13 Ordered Vital Signs [RC] PER UNIT ROUTINE Care 07/28/21 11:13 Ordered Vital Signs [RC] Q4H Care 07/28/21 11:13 Ordered Consult to Occupational Therapy [OT Evaluation and Cons 07/28/21 11:13 Ordered Treatment] [CONS] Routine Consult to Physical Therapy [PT Evaluation and Cons 07/28/21 11:13 Ordered Treatment] [CONS] Routine Regular Diet [DIET] Diet 07/28/21 Breakfast Ordered Celecoxib [CeleBREX] Med 07/28/21 21:00 Ordered 200 mg PO BID Check Patch Med 07/28/21 21:00 Ordered 1 ea TRDERM BEDTIME Cyclobenzaprine [Flexeril] Med 07/28/21 14:00 Ordered 5 mg PO TID Docusate Sodium [Colace] Med 07/28/21 21:00 Ordered 100 mg PO BID Enoxaparin [Lovenox] Med 07/29/21 09:00 Ordered 40 mg SUBCUT DAILY HYDROmorphone [Dilaudid] Med 07/28/21 11:13 Ordered 0.5 mg IVPUSH Q2H PRN Lidocaine 5% [Lidoderm 5%] Med 07/29/21 09:00 Ordered 1,400 mg TOP DAILY Naloxone [Narcan] Med 07/28/21 11:13 Ordered 0.04 mg IVPUSH Q3M PRN Ondansetron [Zofran] Med 07/28/21 11:13 Ordered 4 mg IVPUSH Q6H PRN Remove Patch Med 07/28/21 11:13 Once 1 ea TRDERM ONETIME ONE Remove Patch Med 07/28/21 11:13 Once 1 ea TRDERM ONETIME ONE Remove Patch Med 07/29/21 12:00 Ordered 1 ea TRDERM Q72H Remove Patch Med 07/28/21 21:00 Ordered 2 ea TRDERM DAILY@2100 Sodium Chloride 0.9% [Saline Flush] Med 07/28/21 11:13 Ordered 10 ml FLUSH ASDIRECTED PRN fentaNYL [Duragesic] Med 07/29/21 12:00 Ordered 25 mcg TRDERM Q72H oxyCODONE Med 07/28/21 11:13 Ordered 7.5 mg PO Q4H PRN polyethylene glycoL 3350 [MiraLAX] Med 07/29/21 09:00 Ordered 17 gm PO DAILY Resuscitation Status Routine Resus Stat 07/28/21 11:13 Ordered Medication Orders Celecoxib (Celecoxib 100 Mg Cap) 200 mg PO BID [facility] Cyclobenzaprine HCl (Cyclobenzaprine 10 Mg Tab) 5 mg PO TID [facility] Docusate Sodium (Docusate Sodium 100 Mg Cap) 100 mg PO BID [facility] Enoxaparin Sodium (Enoxaparin 40 Mg/0.4 Ml Syringe) 40 mg SUBCUT DAILY [facility] Fentanyl (Fentanyl 25 Mcg/Hr Transdermal Patch) 25 mcg TRDERM Q72H [facility] Hydromorphone HCl (Hydromorphone 0.5 Mg/0.5 Ml Syringe) 0.5 mg IVPUSH Q2H PRN PRN Reason: Pain (severe 7-10) Lidocaine (Lidocaine 5% 700 Mg Patch) 1,400 mg TOP DAILY [facility] Miscellaneous Information (Check Patch) 1 ea TRDERM BEDTIME [facility] Miscellaneous Information (Remove Patch) 1 ea TRDERM Q72H [facility] Miscellaneous Information (Remove Patch) 2 ea TRDERM DAILY@2100 [facility] Miscellaneous Information (Remove Patch) 1 ea TRDERM ONETIME ONE Stop: 07/28/21 11:14 Miscellaneous Information (Remove Patch) 1 ea TRDERM ONETIME ONE Stop: 07/28/21 11:14 Naloxone HCl (Naloxone 2 Mg/2 Ml Syringe) 0.04 mg IVPUSH Q3M PRN PRN Reason: Respiratory Depression Ondansetron HCl (Ondansetron 4 Mg/2 Ml Sdv) 4 mg IVPUSH Q6H PRN PRN Reason: Nausea/Vomiting Oxycodone HCl (Oxycodone 5 Mg Tab) 7.5 mg PO Q4H PRN PRN Reason: Pain (moderate 4-6) Polyethylene Glycol (Polyethylene Glycol 3350 Powder 17 Gm Packet) 17 gm PO DAILY [facility] Sodium Chloride (Sodium Chloride 0.9% 10 Ml Syringe) 10 ml FLUSH ASDIRECTED PRN PRN Reason: IV Use Assessment/Plan Comment:: 1. 61-year-old man with multiple level transverse process fracture of the lumbar spine, as well as severe contusions of the low back and right hip case was evaluated by neurosurgery - no surgical intervention was suggested medical management with pain management and pt/ot pain is better controlled - try to limit Dilaudid prn cont scheduled celebrex, flexeril, lidoderm patch cont Fentanyl patch cont prn oxycodone, IV dilaudid cont lumbar brace for pain control, TLSO brace will need to be fitted plan to follow up with NSurgery Continue physical and occupational therapy - transferred to swing bed constipation follow with stool softeners 2. VTE prophylaxis: Continue Lovenox daily for prophylaxis until he is mobilized better
[2021-07-28] MEDS: oxyCODONE 5 MG Tab PO PRN ×2 (12:23→18:33)
[2021-07-28] MEDS: Cyclobenzaprine 10 MG Tab PO SCH ×2 (13:55→20:48)
[2021-07-28] MEDS: HYDROmorphone 0.5 MG/0.5 ML Syringe IVPUSH PRN ×2 (13:56→23:33)
[2021-07-28] MEDS: Docusate Sodium 100 MG Cap PO SCH (20:48)
[2021-07-28] MEDS: Celecoxib 100 MG Cap PO SCH (20:48)
[2021-07-28] MEDS: Check Patch TRDERM SCH (20:54)
[2021-07-28] MEDS: Sodium Chloride 0.9% 10 ML Syringe FLUSH PRN (23:33)
[2021-07-29] MEDS: oxyCODONE 5 MG Tab PO PRN ×5 (03:48→22:51)
[2021-07-29] MEDS: Cyclobenzaprine 10 MG Tab PO SCH ×3 (08:36→20:42)
[2021-07-29] MEDS: Celecoxib 100 MG Cap PO SCH ×2 (08:36→20:42)
[2021-07-29] MEDS: Lidocaine 5% 700 MG Patch TOP SCH (08:38)
[2021-07-29] MEDS: Enoxaparin 40 MG/0.4 ML Syringe SUBCUT SCH (08:38)
[2021-07-29] MEDS: Polyethylene Glycol 3350 Powder 17 GM Packet PO SCH (08:38)
[2021-07-29] MEDS: Docusate Sodium 100 MG Cap PO SCH ×2 (09:00→20:42)
[2021-07-29] MEDS: HYDROmorphone 0.5 MG/0.5 ML Syringe IVPUSH PRN ×2 (10:38→21:47)
[2021-07-29] MEDS ORDERED: fentaNYL 25 MCG/HR Transdermal Patch TRDERM SCH (12:00)
[2021-07-29] MEDS ORDERED: Benzocaine/Cetylpyridinium/Menthol Lozenge MUCMEM PRN (15:34)
[2021-07-29] MEDS: Check Patch TRDERM SCH (20:47)
[2021-07-29] MEDS: Sodium Chloride 0.9% 10 ML Syringe FLUSH PRN (21:46)
[2021-07-30] MEDS: Sodium Chloride 0.9% 10 ML Syringe FLUSH PRN (02:45)
[2021-07-30] MEDS: HYDROmorphone 0.5 MG/0.5 ML Syringe IVPUSH PRN ×4 (02:46→22:05)
[2021-07-30] MEDS: oxyCODONE 5 MG Tab PO PRN (05:56)
[2021-07-30] MEDS: Docusate Sodium 100 MG Cap PO SCH ×2 (08:27→21:00)
[2021-07-30] MEDS: Celecoxib 100 MG Cap PO SCH (08:28)
[2021-07-30] MEDS: Cyclobenzaprine 10 MG Tab PO SCH ×3 (08:28→20:43)
[2021-07-30] MEDS: Lidocaine 5% 700 MG Patch TOP SCH (08:32)
[2021-07-30] MEDS: Enoxaparin 40 MG/0.4 ML Syringe SUBCUT SCH (08:32)
[2021-07-30] MEDS ORDERED: oxyCODONE 5 MG Tab PO ONE (10:00)
[2021-07-30] MEDS ORDERED: Oxybutynin 5 MG Tab PO PRN (10:00)
[2021-07-30] MEDS ORDERED: Acetaminophen/oxyCODONE 325-5 MG Tab PO PRN (14:00)
[2021-07-30] MEDS ORDERED: HYDROmorphone 0.5 MG/0.5 ML Syringe IVPUSH ONE (14:30)
[2021-07-30] MEDS: Acetaminophen/oxyCODONE 325-5 MG Tab PO SCH ×2 (14:40→20:31)
[2021-07-30] MEDS: Polyethylene Glycol 3350 Powder 17 GM Packet PO SCH (18:50)
[2021-07-31] MEDS: HYDROmorphone 0.5 MG/0.5 ML Syringe IVPUSH PRN ×7 (00:06→21:07)
[2021-07-31] MEDS: Check Patch TRDERM SCH ×2 (00:08→23:47)
[2021-07-31] MEDS: Acetaminophen/oxyCODONE 325-5 MG Tab PO SCH ×6 (02:37→22:25)
[2021-07-31] MEDS: Lidocaine 5% 700 MG Patch TOP SCH (08:52)
[2021-07-31] MEDS: Polyethylene Glycol 3350 Powder 17 GM Packet PO SCH (08:52)
[2021-07-31] MEDS: Enoxaparin 40 MG/0.4 ML Syringe SUBCUT SCH (08:52)
[2021-07-31] MEDS: Cyclobenzaprine 10 MG Tab PO SCH ×3 (08:53→21:11)
[2021-07-31] MEDS: Docusate Sodium 100 MG Cap PO SCH ×2 (08:53→21:11)
[2021-07-31] MEDS: Sodium Chloride 0.9% 10 ML Syringe FLUSH PRN ×3 (08:55→17:11)
--- NOTE | 2021-07-31 12:08 | PCM.PN ---
- General Info Date of Service: 07/31/21 Admission Dx/Problem (Free Text): Admission Diagnosis/Problem Admission Diagnosis/Problem Spinous process fracture Subjective Update: Since his appointment yesterday, he has had more back pain. Overnight his back pain worsened and we made changes to his opiate regimen. He believes the change has improved his pain. He complained to the nursing staff yesterday that he had left groin pain. He was evaluated today. He may have an inguinal hernia. He denies severe abdominal pain, nausea, vomiting, and diarrhea. - Review of Systems General: Reports: No Symptoms Pulmonary: Reports: No Symptoms Cardiovascular: Reports: No Symptoms Gastrointestinal: Reports: Abdominal Pain Musculoskeletal: Reports: Back Pain - Patient Data Vitals - Most Recent: Last Vital Signs Temp 98 F 07/31/21 08:00 Pulse 61 07/31/21 08:00 Resp 18 07/31/21 08:00 BP 115/73 07/31/21 08:00 Pulse Ox 96 07/31/21 08:00 Weight - Most Recent: 196 lb 6.4 oz I&O - Last 24 Hours: Intake & Output 07/30/21 07/31/21 07/31/21 22:59 06:59 14:59 Intake Total 240 Output Total 600 Balance -360 Med Orders - Current: Current Medications Benzocaine/Menthol (Benzocaine/Cetylpyridinium/Menthol Lozenge) 1 lozenge MUCMEM TID PRN PRN Reason: Cough Cyclobenzaprine HCl (Cyclobenzaprine 10 Mg Tab) 5 mg PO TID REPLACED BY [facility] Last Admin: 07/31/21 08:53 Dose: 5 mg Documented by: Docusate Sodium (Docusate Sodium 100 Mg Cap) 100 mg PO BID REPLACED BY [facility] Last Admin: 07/31/21 08:53 Dose: 100 mg Documented by: Enoxaparin Sodium (Enoxaparin 40 Mg/0.4 Ml Syringe) 40 mg SUBCUT DAILY REPLACED BY [facility] Last Admin: 07/31/21 08:52 Dose: 40 mg Documented by: Hydromorphone HCl (Hydromorphone 0.5 Mg/0.5 Ml Syringe) 0.5 mg IVPUSH Q2H PRN PRN Reason: Pain (severe 7-10) Last Admin: 07/31/21 08:54 Dose: 0.5 mg Documented by: Lidocaine (Lidocaine 5% 700 Mg Patch) 1,400 mg TOP DAILY REPLACED BY [facility] Last Admin: 07/31/21 08:52 Dose: 1,400 mg Documented by: Methyl Salicylate (Menthol/Methyl Salicylate 85 Gm Tube) 0 gm TOP QID PRN PRN Reason: Pain (mild 1-3) Miscellaneous Information (Check Patch) 1 ea TRDERM BEDTIME REPLACED BY [facility] Last Admin: 07/31/21 00:08 Dose: Not Given Documented by: Miscellaneous Information (Remove Lidocaine Patches) 2 ea TRDERM DAILY@2100 REPLACED BY [facility] Last Admin: 07/30/21 21:00 Dose: 2 ea Documented by: Naloxone HCl (Naloxone 2 Mg/2 Ml Syringe) 0.04 mg IVPUSH Q3M PRN PRN Reason: Respiratory Depression Ondansetron HCl (Ondansetron 4 Mg/2 Ml Sdv) 4 mg IVPUSH Q6H PRN PRN Reason: Nausea/Vomiting Last Admin: 07/30/21 08:42 Dose: 4 mg Documented by: Oxycodone/Acetaminophen (Acetaminophen/Oxycodone 325-5 Mg Tab) 2 tab PO Q4H REPLACED BY [facility] Last Admin: 07/31/21 10:21 Dose: 2 tab Documented by: Polyethylene Glycol (Polyethylene Glycol 3350 Powder 17 Gm Packet) 17 gm PO DAILY REPLACED BY [facility] Last Admin: 07/31/21 08:52 Dose: 17 gm Documented by: Sodium Chloride (Sodium Chloride 0.9% 10 Ml Syringe) 10 ml FLUSH ASDIRECTED PRN PRN Reason: IV Use Last Admin: 07/31/21 08:55 Dose: 10 ml Documented by: Discontinued Medications Celecoxib (Celecoxib 100 Mg Cap) 200 mg PO BID REPLACED BY [facility] Last Admin: 07/30/21 08:28 Dose: 200 mg Documented by: Fentanyl (Fentanyl 25 Mcg/Hr Transdermal Patch) 25 mcg TRDERM Q72H REPLACED BY [facility] Last Admin: 07/29/21 12:45 Dose: 25 mcg Documented by: Hydromorphone HCl (Hydromorphone 0.5 Mg/0.5 Ml Syringe) 0.5 mg IVPUSH Q2H PRN PRN Reason: Pain (severe 7-10) Last Admin: 07/30/21 08:43 Dose: 0.5 mg Documented by: Hydromorphone HCl (Hydromorphone 0.5 Mg/0.5 Ml Syringe) 0.2 mg IVPUSH ONETIME ONE Stop: 07/30/21 14:31 Last Admin: 07/30/21 14:40 Dose: 0.2 mg Documented by: Hydromorphone HCl (Hydromorphone 0.5 Mg/0.5 Ml Syringe) 0.2 mg IVPUSH Q2H PRN PRN Reason: Pain (severe 7-10) Last Admin: 07/31/21 02:08 Dose: 0.2 mg Documented by: Miscellaneous Information (Remove Fentanyl Patch) 1 ea TRDERM Q72H [facility] Last Admin: 07/29/21 12:50 Dose: 1 ea Documented by: Miscellaneous Information (Remove Patch) 1 ea TRDERM ONETIME ONE Stop: 07/28/21 11:14 Last Admin: 07/28/21 14:57 Dose: Not Given Documented by: Oxycodone HCl (Oxycodone 5 Mg Tab) 7.5 mg PO Q4H PRN PRN Reason: Pain (moderate 4-6) Last Admin: 07/30/21 05:56 Dose: 7.5 mg Documented by: Oxycodone/Acetaminophen (Acetaminophen/Oxycodone 325-5 Mg Tab) 1 tab PO Q6H PRN PRN Reason: Pain (severe 7-10) Oxycodone/Acetaminophen (Acetaminophen/Oxycodone 325-5 Mg Tab) 1 tab PO Q6H REPLACED BY [facility] Last Admin: 07/30/21 20:31 Dose: 1 tab Documented by: - Exam General: Alert, Oriented Lungs: Clear to Auscultation, Normal Respiratory Effort Cardiovascular: Regular Rate, Regular Rhythm GI/Abdominal Exam: Normal Bowel Sounds (He is having daily bowel movements.) (Male) Exam: Other (Possible left inguinal hernia. Noted mass with Valsalva on the left. No mass noted with Valsalva on the right.) Psy/Mental Status: Alert, Normal Affect, Normal Mood Sepsis Event Note - Evaluation Sepsis Screening Result: No Definite Risk - Focused Exam Vital Signs: Vital Signs Temp Pulse Resp BP Pulse Ox 07/31/21 08:00 98 F 61 18 115/73 96 - Problem List & Annotations (1) Left inguinal hernia SNOMED Code(s): 374424480 Code(s): K40.90 - UNIL INGUINAL HERNIA, W/O OBST OR GANGR, NOT SPCF RECUR Status: Acute Current Visit: Yes (2) Lumbar transverse process fracture SNOMED Code(s): 111579692 Code(s): S32.009A - UNSP FRACTURE OF UNSP LUMBAR VERTEBRA, INIT FOR CLOS FX Status: Acute Current Visit: Yes - Problem List Review Problem List Initiated/Reviewed/Updated: Yes - My Orders Last 24 Hours: My Active Orders 07/30/21 19:53 Menthol/Methyl Salicylate [Icy Hot Cream] See Dose Instructions TOP QID PRN 07/31/21 02:17 HYDROmorphone [Dilaudid] 0.5 mg IVPUSH Q2H PRN 07/31/21 02:30 Acetaminophen/oxyCODONE [Percocet 325-5 MG] 2 tab PO Q4H - Assessment Assessment:: Zeeshan cortez is a 61-year-old male with spinous process he fractures and spinous vertebrae fracture from a fall from 20 feet having pain in his back, pain in the left groin, and questions about constipation. - Spine fractures Started 10 mg Percocet scheduled every 4 hours, which is a change from schedule every 6 hours Started Dilaudid 0.5 mg every 2 hours as needed, which is a change from 0.2 mg every 2 hours as needed Continued lidocaine patches Discontinued fentanyl patch and NSAIDs - Left groin pain Mass noted with Valsalva on the left inguinal area Ordered an outpatient CT without contrast for further evaluation Monitor while inpatient -At risk for opiate-induced constipation Continue scheduled Colace Started MiraLAX daily If the patient develops opiate-induced constipation, Relistor is present in this pharmacy DVT: Lovenox
[2021-07-31] MEDS: Menthol/Methyl Salicylate 85 GM Tube TOP PRN (21:28)
[2021-08-01] MEDS: Acetaminophen/oxyCODONE 325-5 MG Tab PO SCH ×5 (02:31→18:06)
[2021-08-01] MEDS: HYDROmorphone 0.5 MG/0.5 ML Syringe IVPUSH PRN ×2 (04:03)
[2021-08-01] MEDS: Menthol/Methyl Salicylate 85 GM Tube TOP PRN ×3 (04:09→21:23)
[2021-08-01] MEDS: Cyclobenzaprine 10 MG Tab PO SCH ×3 (08:26→21:20)
[2021-08-01] MEDS: Docusate Sodium 100 MG Cap PO SCH ×2 (08:26→21:23)
[2021-08-01] MEDS: Polyethylene Glycol 3350 Powder 17 GM Packet PO SCH (08:28)
[2021-08-01] MEDS: Enoxaparin 40 MG/0.4 ML Syringe SUBCUT SCH (08:28)
[2021-08-01] MEDS: Lidocaine 5% 700 MG Patch TOP SCH (08:28)
[2021-08-01] MEDS: fentaNYL 12 MCG/HR Transdermal Patch TRDERM SCH (14:30)
[2021-08-01] MEDS: Check Patch TRDERM SCH (21:00)
[2021-08-01] MEDS ORDERED: HYDROmorphone 0.5 MG/0.5 ML Syringe IVPUSH PRN (22:31)
--- NOTE | 2021-08-01 22:39 | PCM.PN ---
- General Info Date of Service: 08/01/21 Admission Dx/Problem (Free Text): Admission Diagnosis/Problem Admission Diagnosis/Problem Spinous process fracture Subjective Update: This evening patient complains of more left groin pain, shooting down to left knee. Denies fever, chills, nausea, vomiting, or dysuria. I switched his pain medications this afternoon to fentanyl patch (12.5mcg Q72 hrs) from dilaudid 0.5mg Q2hrs. Vital signs are stable - Review of Systems General: Reports: No Symptoms HEENT: Reports: No Symptoms Pulmonary: Reports: No Symptoms Cardiovascular: Reports: No Symptoms Gastrointestinal: Reports: No Symptoms Genitourinary: Reports: No Symptoms Musculoskeletal: Reports: Other (tenderness over left inquinal area. Noted mass with Valsalva on the left. No mass noted with Valsalva on the right) Skin: Reports: No Symptoms Neurological: Reports: No Symptoms Psychiatric: Reports: No Symptoms - Patient Data Vitals - Most Recent: Last Vital Signs Temp 36.1 C 08/01/21 07:42 Pulse 78 08/01/21 07:42 Resp 18 08/01/21 07:42 BP 144/84 H 08/01/21 07:42 Pulse Ox 97 08/01/21 07:42 Weight - Most Recent: 89.086 kg I&O - Last 24 Hours: Intake & Output 08/01/21 08/01/21 08/01/21 06:59 14:59 22:59 Intake Total 1010 250 Output Total 1075 400 500 Balance -65 -150 -500 Med Orders - Current: Current Medications Benzocaine/Menthol (Benzocaine/Cetylpyridinium/Menthol Lozenge) 1 lozenge MUCMEM TID PRN PRN Reason: Cough Cyclobenzaprine HCl (Cyclobenzaprine 10 Mg Tab) 5 mg PO TID [facility] Last Admin: 08/01/21 21:20 Dose: 5 mg Documented by: Docusate Sodium (Docusate Sodium 100 Mg Cap) 100 mg PO BID [facility] Last Admin: 08/01/21 21:23 Dose: 100 mg Documented by: Enoxaparin Sodium (Enoxaparin 40 Mg/0.4 Ml Syringe) 40 mg SUBCUT DAILY [facility] Last Admin: 08/01/21 08:28 Dose: 40 mg Documented by: Fentanyl (Fentanyl 12 Mcg/Hr Transdermal Patch) 12 mcg TRDERM Q72H [facility] Last Admin: 08/01/21 14:30 Dose: 12 mcg Documented by: Hydromorphone HCl (Hydromorphone 0.5 Mg/0.5 Ml Syringe) 0.5 mg IVPUSH Q4H PRN PRN Reason: Pain (severe 7-10) Lidocaine (Lidocaine 5% 700 Mg Patch) 1,400 mg TOP DAILY [facility] Last Admin: 08/01/21 08:28 Dose: 1,400 mg Documented by: Methyl Salicylate (Menthol/Methyl Salicylate 85 Gm Tube) 0 gm TOP QID PRN PRN Reason: Pain (mild 1-3) Last Admin: 08/01/21 21:23 Dose: 1 dose Documented by: Miscellaneous Information (Check Patch) 1 ea TRDERM BEDTIME [facility] Last Admin: 07/31/21 23:47 Dose: Not Given Documented by: Miscellaneous Information (Remove Lidocaine Patches) 2 ea TRDERM DAILY@2100 [facility] Last Admin: 07/31/21 21:43 Dose: Not Given Documented by: Naloxone HCl (Naloxone 2 Mg/2 Ml Syringe) 0.04 mg IVPUSH Q3M PRN PRN Reason: Respiratory Depression Ondansetron HCl (Ondansetron 4 Mg/2 Ml Sdv) 4 mg IVPUSH Q6H PRN PRN Reason: Nausea/Vomiting Last Admin: 07/30/21 08:42 Dose: 4 mg Documented by: Oxycodone/Acetaminophen (Acetaminophen/Oxycodone 325-5 Mg Tab) 2 tab PO Q4H [facility] Last Admin: 08/01/21 18:06 Dose: 2 tab Documented by: Polyethylene Glycol (Polyethylene Glycol 3350 Powder 17 Gm Packet) 17 gm PO DAILY [facility] Last Admin: 08/01/21 08:28 Dose: Not Given Documented by: Sodium Chloride (Sodium Chloride 0.9% 10 Ml Syringe) 10 ml FLUSH ASDIRECTED PRN PRN Reason: IV Use Last Admin: 07/31/21 17:11 Dose: 10 ml Documented by: Discontinued Medications Celecoxib (Celecoxib 100 Mg Cap) 200 mg PO BID [facility] Last Admin: 07/30/21 08:28 Dose: 200 mg Documented by: Fentanyl (Fentanyl 25 Mcg/Hr Transdermal Patch) 25 mcg TRDERM Q72H [facility] Last Admin: 07/29/21 12:45 Dose: 25 mcg Documented by: Hydromorphone HCl (Hydromorphone 0.5 Mg/0.5 Ml Syringe) 0.5 mg IVPUSH Q2H PRN PRN Reason: Pain (severe 7-10) Last Admin: 07/30/21 08:43 Dose: 0.5 mg Documented by: Hydromorphone HCl (Hydromorphone 0.5 Mg/0.5 Ml Syringe) 0.2 mg IVPUSH ONETIME ONE Stop: 07/30/21 14:31 Last Admin: 07/30/21 14:40 Dose: 0.2 mg Documented by: Hydromorphone HCl (Hydromorphone 0.5 Mg/0.5 Ml Syringe) 0.2 mg IVPUSH Q2H PRN PRN Reason: Pain (severe 7-10) Last Admin: 07/31/21 02:08 Dose: 0.2 mg Documented by: Hydromorphone HCl (Hydromorphone 0.5 Mg/0.5 Ml Syringe) 0.5 mg IVPUSH Q2H PRN PRN Reason: Pain (severe 7-10) Last Admin: 08/01/21 04:03 Dose: 0.5 mg Documented by: Miscellaneous Information (Remove Fentanyl Patch) 1 ea TRDERM Q72H [facility] Last Admin: 07/29/21 12:50 Dose: 1 ea Documented by: Miscellaneous Information (Remove Patch) 1 ea TRDERM ONETIME ONE Stop: 07/28/21 11:14 Last Admin: 07/28/21 14:57 Dose: Not Given Documented by: Oxycodone HCl (Oxycodone 5 Mg Tab) 7.5 mg PO Q4H PRN PRN Reason: Pain (moderate 4-6) Last Admin: 07/30/21 05:56 Dose: 7.5 mg Documented by: Oxycodone/Acetaminophen (Acetaminophen/Oxycodone 325-5 Mg Tab) 1 tab PO Q6H PRN PRN Reason: Pain (severe 7-10) Oxycodone/Acetaminophen (Acetaminophen/Oxycodone 325-5 Mg Tab) 1 tab PO Q6H [facility] Last Admin: 07/30/21 20:31 Dose: 1 tab Documented by: - Exam General: Alert, Oriented, Cooperative HEENT: Pupils Equal, Pupils Reactive, EOMI Neck: Supple, No JVD, No Thyromegaly Lungs: Clear to Auscultation, Normal Respiratory Effort Cardiovascular: Regular Rate, Regular Rhythm GI/Abdominal Exam: Normal Bowel Sounds, Soft, Non-Tender, No Organomegaly Extremities: Normal Inspection, Normal Range of Motion, No Pedal Edema, Other (tenderness over left inquinal area. Noted mass with Valsalva on the left. No mass noted with Valsalva on the right) Skin: Warm, Dry, Intact Neurological: No New Focal Deficit, Normal Speech, Normal Tone, Strength Equal Bilateral, Reflexes Equal Bilateral, Sensation Intact Psy/Mental Status: Alert, Normal Affect, Normal Mood Sepsis Event Note - Evaluation Sepsis Screening Result: No Definite Risk - Problem List Review Problem List Initiated/Reviewed/Updated: Yes - My Orders Last 24 Hours: My Active Orders 08/01/21 13:00 fentaNYL [Duragesic] 12 mcg TRDERM Q72H 08/01/21 22:31 Pelvis wo Cont [CT] Stat HYDROmorphone [Dilaudid] 0.5 mg IVPUSH Q4H PRN 08/02/21 05:00 CBC WITH AUTO DIFF [HEME] DAILY COMPREHENSIVE METABOLIC PN,CMP [CHEM] DAILY - Assessment Assessment:: Zeeshan cortez is a 61-year-old male with spinous process he fractures and spinous vertebrae fracture from a fall from 20 feet having pain in his back, pain in the left groin, and questions about constipation. - Spine fractures Started 10 mg Percocet scheduled every 4 hours, which is a change from schedule every 6 hours Started Dilaudid 0.5 mg every 4 hours as needed and fentanyl patch 12.5mcg Q72hrs Continued lidocaine patches Discontinued NSAIDs - Left groin pain Mass noted with Valsalva on the left inguinal area Ordered an outpatient CT without contrast for further evaluation Monitor while inpatient This evening patient complains of more left groin pain, shooting down to left knee (new). CT left inguinal area, stat. Would order CT spine if needed. I switched his pain medications this afternoon to fentanyl patch (12.5mcg Q72 hrs) from dilaudid 0.5mg Q2hrs. I will add Dilaudid 0.5 mg every 4 hours as needed. If pt is improved tomorrow, may discontinue dilaudid. -At risk for opiate-induced constipation Continue scheduled Colace Started MiraLAX daily If the patient develops opiate-induced constipation, Relistor is present in this pharmacy DVT: Lovenox - Plan Plan:: 1. 61-year-old man with multiple level transverse process fracture of the lumbar spine, as well as severe contusions of the low back and right hip case was evaluated by neurosurgery - no surgical intervention was suggested medical management with pain management and pt/ot pain is better controlled - try to limit Dilaudid prn cont scheduled celebrex, flexeril, lidoderm patch cont Fentanyl patch cont prn oxycodone, IV dilaudid cont lumbar brace for pain control, TLSO brace will need to be fitted plan to follow up with NSurgery Continue physical and occupational therapy - transferred to swing bed constipation follow with stool softeners 2. VTE prophylaxis: Continue Lovenox daily for prophylaxis until he is mobilized better
--- NOTE | 2021-08-02 00:58 | CT ---
PROCEDURE INFORMATION: Exam: CT Pelvis Without Contrast Exam date and time: 08/01/2021 10:57 PM Age: 61 years old Clinical indication: Other: Pain--fell off roof 2 weeks ago; Additional info: Left inguinal pain, radiating down to knee TECHNIQUE: Imaging protocol: Computed tomography images of the pelvis without contrast. Radiation optimization: All CT scans at this facility use at least one of these dose optimization techniques: automated exposure control; mA and/or kV adjustment per patient size (includes targeted exams where dose is matched to clinical indication); or iterative reconstruction. COMPARISON: CT Chest Abdomen Pelvis w Cont 07/18/2021 2:54 PM FINDINGS: Stomach and bowel: Visualized small bowel and colon are unremarkable. Appendix: No evidence of appendicitis. Intraperitoneal space: Unremarkable. No free air. No significant fluid collection. Lymph nodes: Unremarkable. No enlarged lymph nodes. Urinary bladder: Normal. No mass. Reproductive: Normal as visualized. Bones/joints: Well corticated loose bodies again noted adjacent to left greater trochanter.. No acute fracture. No dislocation. Soft tissues: Very small bilateral fat containing inguinal hernias. There are bilateral scrotal hydroceles.. IMPRESSION: No acute fracture.
[2021-08-02] MEDS: Acetaminophen/oxyCODONE 325-5 MG Tab PO SCH ×6 (03:01→21:01)
[2021-08-02 06:59] LABS: ANION GAP 12.3 mEq/L (7-13); CHLORIDE,CL 101 mmol/L (98-107); SODIUM,NA 139 mmol/L (136-145)
[2021-08-02] MEDS: Docusate Sodium 100 MG Cap PO SCH ×3 (07:43→20:59)
[2021-08-02] MEDS: Enoxaparin 40 MG/0.4 ML Syringe SUBCUT SCH ×2 (07:44→07:59)
[2021-08-02] MEDS: Cyclobenzaprine 10 MG Tab PO SCH ×4 (07:44→20:59)
[2021-08-02] MEDS: Lidocaine 5% 700 MG Patch TOP SCH ×2 (07:44→07:59)
[2021-08-02] MEDS: Polyethylene Glycol 3350 Powder 17 GM Packet PO SCH (07:59)
[2021-08-02] MEDS: Check Patch TRDERM SCH (22:25)
[2021-08-03] MEDS: Acetaminophen/oxyCODONE 325-5 MG Tab PO SCH ×6 (01:15→20:38)
[2021-08-03] MEDS: Docusate Sodium 100 MG Cap PO SCH ×2 (08:34→20:36)
[2021-08-03] MEDS: Enoxaparin 40 MG/0.4 ML Syringe SUBCUT SCH (08:34)
[2021-08-03] MEDS: Polyethylene Glycol 3350 Powder 17 GM Packet PO SCH (08:35)
[2021-08-03] MEDS: Cyclobenzaprine 10 MG Tab PO SCH ×3 (08:35→20:36)
[2021-08-03] MEDS: Lidocaine 5% 700 MG Patch TOP SCH (08:35)
[2021-08-03] MEDS: Check Patch TRDERM SCH (20:40)
[2021-08-04] MEDS: Acetaminophen/oxyCODONE 325-5 MG Tab PO SCH ×3 (00:15→08:22)
[2021-08-04] MEDS: Docusate Sodium 100 MG Cap PO SCH ×2 (08:21→21:24)
[2021-08-04] MEDS: Cyclobenzaprine 10 MG Tab PO SCH ×4 (08:21→21:23)
[2021-08-04] MEDS: Polyethylene Glycol 3350 Powder 17 GM Packet PO SCH (08:22)
[2021-08-04] MEDS: Lidocaine 5% 700 MG Patch TOP SCH (08:22)
[2021-08-04] MEDS: Enoxaparin 40 MG/0.4 ML Syringe SUBCUT SCH (08:22)
[2021-08-04] MEDS ORDERED: Acetaminophen/oxyCODONE 325-5 MG Tab ONE (10:23)
[2021-08-04] MEDS: fentaNYL 12 MCG/HR Transdermal Patch TRDERM SCH ×2 (10:41→12:40)
--- NOTE | 2021-08-04 12:45 | PCM.PN ---
- General Info Date of Service: 08/03/21 Admission Dx/Problem (Free Text): No new issues reported. Pt is working with PT and OT - Patient Data Vitals - Most Recent: Last Vital Signs Temp 97.5 F 08/04/21 08:12 Pulse 87 08/04/21 08:12 Resp 20 08/04/21 08:12 BP 116/77 08/04/21 08:12 Pulse Ox 96 08/04/21 08:12 Weight - Most Recent: 196 lb 6.4 oz I&O - Last 24 Hours: Intake & Output 08/03/21 08/04/21 08/04/21 22:59 06:59 14:59 Intake Total 500 Output Total 850 Balance -350 Med Orders - Current: Current Medications Benzocaine/Menthol (Benzocaine/Cetylpyridinium/Menthol Lozenge) 1 lozenge MUCMEM TID PRN PRN Reason: Cough Cyclobenzaprine HCl (Cyclobenzaprine 10 Mg Tab) 5 mg PO TID [facility] Last Admin: 08/04/21 08:21 Dose: 5 mg Documented by: Docusate Sodium (Docusate Sodium 100 Mg Cap) 100 mg PO BID [facility] Last Admin: 08/04/21 08:21 Dose: 100 mg Documented by: Enoxaparin Sodium (Enoxaparin 40 Mg/0.4 Ml Syringe) 40 mg SUBCUT DAILY [facility] Last Admin: 08/04/21 08:22 Dose: 40 mg Documented by: Fentanyl (Fentanyl 12 Mcg/Hr Transdermal Patch) 12 mcg TRDERM Q72H [facility] Last Admin: 08/04/21 10:41 Dose: 12 mcg Documented by: Lidocaine (Lidocaine 5% 700 Mg Patch) 1,400 mg TOP DAILY [facility] Last Admin: 08/04/21 08:22 Dose: 1,400 mg Documented by: Methyl Salicylate (Menthol/Methyl Salicylate 85 Gm Tube) 0 gm TOP QID PRN PRN Reason: Pain (mild 1-3) Last Admin: 08/01/21 21:23 Dose: 1 dose Documented by: Miscellaneous Information (Check Patch) 1 ea TRDERM BEDTIME [facility] Last Admin: 08/03/21 20:40 Dose: 1 ea Documented by: Miscellaneous Information (Remove Lidocaine Patches) 2 ea TRDERM DAILY@2100 [facility] Last Admin: 08/03/21 20:41 Dose: 2 ea Documented by: Oxycodone/Acetaminophen (Acetaminophen/Oxycodone 325-5 Mg Tab) 2 tab PO Q4H PRN PRN Reason: SEVERE PAIN Polyethylene Glycol (Polyethylene Glycol 3350 Powder 17 Gm Packet) 17 gm PO DAILY [facility] Last Admin: 08/04/21 08:22 Dose: Not Given Documented by: Discontinued Medications Celecoxib (Celecoxib 100 Mg Cap) 200 mg PO BID [facility] Last Admin: 07/30/21 08:28 Dose: 200 mg Documented by: Fentanyl (Fentanyl 25 Mcg/Hr Transdermal Patch) 25 mcg TRDERM Q72H [facility] Last Admin: 07/29/21 12:45 Dose: 25 mcg Documented by: Hydromorphone HCl (Hydromorphone 0.5 Mg/0.5 Ml Syringe) 0.5 mg IVPUSH Q2H PRN PRN Reason: Pain (severe 7-10) Last Admin: 07/30/21 08:43 Dose: 0.5 mg Documented by: Hydromorphone HCl (Hydromorphone 0.5 Mg/0.5 Ml Syringe) 0.2 mg IVPUSH ONETIME ONE Stop: 07/30/21 14:31 Last Admin: 07/30/21 14:40 Dose: 0.2 mg Documented by: Hydromorphone HCl (Hydromorphone 0.5 Mg/0.5 Ml Syringe) 0.2 mg IVPUSH Q2H PRN PRN Reason: Pain (severe 7-10) Last Admin: 07/31/21 02:08 Dose: 0.2 mg Documented by: Hydromorphone HCl (Hydromorphone 0.5 Mg/0.5 Ml Syringe) 0.5 mg IVPUSH Q2H PRN PRN Reason: Pain (severe 7-10) Last Admin: 08/01/21 04:03 Dose: 0.5 mg Documented by: Hydromorphone HCl (Hydromorphone 0.5 Mg/0.5 Ml Syringe) 0.5 mg IVPUSH Q4H PRN PRN Reason: Pain (severe 7-10) Last Admin: 08/01/21 22:44 Dose: 0.5 mg Documented by: Miscellaneous Information (Remove Fentanyl Patch) 1 ea TRDERM Q72H [facility] Last Admin: 07/29/21 12:50 Dose: 1 ea Documented by: Miscellaneous Information (Remove Patch) 1 ea TRDERM ONETIME ONE Stop: 07/28/21 11:14 Last Admin: 07/28/21 14:57 Dose: Not Given Documented by: Naloxone HCl (Naloxone 2 Mg/2 Ml Syringe) 0.04 mg IVPUSH Q3M PRN PRN Reason: Respiratory Depression Ondansetron HCl (Ondansetron 4 Mg/2 Ml Sdv) 4 mg IVPUSH Q6H PRN PRN Reason: Nausea/Vomiting Last Admin: 07/30/21 08:42 Dose: 4 mg Documented by: Oxycodone HCl (Oxycodone 5 Mg Tab) 7.5 mg PO Q4H PRN PRN Reason: Pain (moderate 4-6) Last Admin: 07/30/21 05:56 Dose: 7.5 mg Documented by: Oxycodone/Acetaminophen (Acetaminophen/Oxycodone 325-5 Mg Tab) 1 tab PO Q6H PRN PRN Reason: Pain (severe 7-10) Oxycodone/Acetaminophen (Acetaminophen/Oxycodone 325-5 Mg Tab) 1 tab PO Q6H [facility] Last Admin: 07/30/21 20:31 Dose: 1 tab Documented by: Oxycodone/Acetaminophen (Acetaminophen/Oxycodone 325-5 Mg Tab) 2 tab PO Q4H [facility] Last Admin: 08/02/21 00:00 Dose: 2 tab Documented by: Oxycodone/Acetaminophen (Acetaminophen/Oxycodone 325-5 Mg Tab) 2 tab PO Q4H [facility] Last Admin: 08/04/21 08:22 Dose: 2 tab Documented by: Oxycodone/Acetaminophen (Acetaminophen/Oxycodone 325-5 Mg Tab) Confirm Administered Dose 2 tab .ROUTE .STK-MED ONE Stop: 08/04/21 10:24 Last Admin: 08/04/21 11:07 Dose: Not Given Documented by: Sodium Chloride (Sodium Chloride 0.9% 10 Ml Syringe) 10 ml FLUSH ASDIRECTED PRN PRN Reason: IV Use Last Admin: 07/31/21 17:11 Dose: 10 ml Documented by: - Exam Physical Findings Comments:: General: Well-developed middle-aged male. In no acute distress CVs: S1-S2 appreciated. Regular rate and rhythm, No murmurs, rubs or gallops Lungs: Clear bilateral. No rales or wheezes Abdomen: Soft, nontender, bowel sounds are present Extremities there is no clubbing, cyanosis or edema. Peripheral pulses 2+. Neuro: Patient moves all extremities, sensation is intact. Gait not examined Psych: Stable mood and affect. - Patient Data Result Diagrams: 08/02/21 05:30 08/02/21 05:30 Sepsis Event Note - Evaluation Sepsis Screening Result: No Definite Risk - Focused Exam Vital Signs: Vital Signs Temp Pulse Resp BP Pulse Ox 08/04/21 08:12 97.5 F 87 20 116/77 96 - Problem List Review Problem List Initiated/Reviewed/Updated: Yes - My Orders Last 24 Hours: My Active Orders 08/04/21 09:51 Discontinue Saline Lock [Peripheral IV Discontinue] [OM.PC] Routine 08/04/21 12:30 Acetaminophen/oxyCODONE [Percocet 325-5 MG] 2 tab PO Q4H PRN - Assessment Assessment:: Zeeshan cortez is a 61-year-old male with spinous process he fractures and spinous vertebrae fracture from a fall from 20 feet having pain in his back, pain in the left groin, and questions about constipation. - Spinal verterbral fractures Started 10 mg Percocet scheduled every 4 hours, which is a change from schedule every 6 hours Started Dilaudid 0.5 mg every 4 hours as needed and fentanyl patch 12.5mcg Q72hrs Continued lidocaine patches Discontinued NSAIDs Pt is going for a brace fitting tomorrow. - Left groin pain Mass noted with Valsalva on the left inguinal area Ordered an outpatient CT without contrast for further evaluation Monitor while inpatient This evening patient complains of more left groin pain, shooting down to left knee (new). CT left inguinal area, stat. Would order CT spine if needed. I switched his pain medications this afternoon to fentanyl patch (12.5mcg Q72 hrs) from dilaudid 0.5mg Q2hrs. I will add Dilaudid 0.5 mg every 4 hours as needed. If pt is improved tomorrow, may discontinue dilaudid. -At risk for opiate-induced constipation Continue scheduled Colace Started MiraLAX daily If the patient develops opiate-induced constipation, Relistor is present in this pharmacy DVT: Lovenox - Plan Plan:: 1. 61-year-old man with multiple level transverse process fracture of the lumbar spine, as well as severe contusions of the low back and right hip case was evaluated by neurosurgery - no surgical intervention was suggested medical management with pain management and pt/ot pain is better controlled - try to limit Dilaudid prn cont scheduled celebrex, flexeril, lidoderm patch cont Fentanyl patch cont prn oxycodone, IV dilaudid cont lumbar brace for pain control, TLSO brace will need to be fitted plan to follow up with NSurgery Continue physical and occupational therapy - transferred to swing bed constipation follow with stool softeners 2. VTE prophylaxis: Continue Lovenox daily for prophylaxis until he is mobilized better
[2021-08-04] MEDS: Acetaminophen/oxyCODONE 325-5 MG Tab PO PRN ×3 (15:13→23:51)
[2021-08-04] MEDS ORDERED: oxyCODONE 5 MG Tab PO PRN (16:48)
[2021-08-04] MEDS: Check Patch TRDERM SCH (21:25)
[2021-08-05] MEDS: Acetaminophen/oxyCODONE 325-5 MG Tab PO PRN ×3 (04:04→12:12)
[2021-08-05] MEDS: Cyclobenzaprine 10 MG Tab PO SCH (10:06)
[2021-08-05] MEDS: Docusate Sodium 100 MG Cap PO SCH (10:06)
[2021-08-05] MEDS: Enoxaparin 40 MG/0.4 ML Syringe SUBCUT SCH (10:07)
[2021-08-05] MEDS: Lidocaine 5% 700 MG Patch TOP SCH (10:07)
[2021-08-05] MEDS: Polyethylene Glycol 3350 Powder 17 GM Packet PO SCH (10:08)
--- NOTE | 2021-08-05 10:11 | PCM.DCSUM1 ---
Discharge Summary - Hospital Course Free Text/Narrative:: 61-year-old man with multiple level transverse process fracture of the lumbar spine, as well as severe contusions of the low back and right hip case was evaluated by neurosurgery - no surgical intervention was suggested - follow up as out pt medical management was with pain management and pt/ot pain is better controlled cont scheduled flexeril, lidoderm patch cont Fentanyl patch cont prn oxycodone cont TLSO brace constipation continue stool softeners Diagnosis: Stroke: No - Discharge Data Discharge Date: 08/05/21 Discharge Disposition: Home, Self-Care 01 Condition: Good - Referral to Home Health Primary Care Physician: PCP None - Discharge Diagnosis/Problem(s) (1) Contusion, back SNOMED Code(s): 87259660 ICD Code: S20.229A - CONTUSION OF UNSPECIFIED BACK WALL OF THORAX, INIT ENCNTR Status: Acute Current Visit: No (2) Intractable back pain SNOMED Code(s): 365300793 ICD Code: M54.9 - DORSALGIA, UNSPECIFIED Status: Acute Current Visit: No (3) Lumbar transverse process fracture SNOMED Code(s): 848225309 ICD Code: S32.009A - UNSP FRACTURE OF UNSP LUMBAR VERTEBRA, INIT FOR CLOS FX Status: Acute Current Visit: Yes (4) Trauma SNOMED Code(s): 483606050 ICD Code: T14.90XA - INJURY, UNSPECIFIED, INITIAL ENCOUNTER Status: Acute Current Visit: No - Patient Summary/Data Consults: Consultations 07/28/21 11:13 Consult to Occupational Therapy [OT Evaluation and Treatment] [CONS] Routine Consult to Physical Therapy [PT Evaluation and Treatment] [CONS] Routine - Patient Instructions Diet: Heart Healthy Diet Activity: As Tolerated - Discharge Plan *PRESCRIPTION DRUG MONITORING PROGRAM REVIEWED*: Not Applicable *COPY OF PRESCRIPTION DRUG MONITORING REPORT IN PATIENT MARIANELA: Not Applicable Prescriptions/Med Rec: Docusate Sodium [Colace] 100 mg PO BID #60 cap fentaNYL [Duragesic] 12 mcg TRDERM Q72H #7 patch Cyclobenzaprine [Flexeril] 5 mg PO TID #30 tablet Lidocaine 5% [Lidoderm 5%] 1,400 mg TOP DAILY #14 patch polyethylene glycoL 3350 [MiraLAX] 17 gm PO DAILY #30 packet Acetaminophen/oxyCODONE [Percocet 325-5 MG] 2 tab PO Q4H PRN #42 tablet PRN Reason: SEVERE PAIN Home Medications: Home Meds Acetaminophen/oxyCODONE [Percocet 325-5 MG] 2 tab PO Q4H PRN #42 tablet 08/05/21 [Rx] Cyclobenzaprine [Flexeril] 5 mg PO TID #30 tablet 08/05/21 [Rx] Docusate Sodium [Colace] 100 mg PO BID #60 cap 08/05/21 [Rx] Lidocaine 5% [Lidoderm 5%] 1,400 mg TOP DAILY #14 patch 08/05/21 [Rx] Menthol/Methyl Salicylate [Icy Hot] 1 dose TOP QID PRN tube 08/05/21 [Rx] fentaNYL [Duragesic] 12 mcg TRDERM Q72H #7 patch 08/05/21 [Rx] polyethylene glycoL 3350 [MiraLAX] 17 gm PO DAILY #30 packet 08/05/21 [Rx] Oxygen Therapy Mode: Room Air - Discharge Summary/Plan Comment DC Time >30 min.: No Total # of Minutes for Discharge Time: 20 min - General Info Date of Service: 08/05/21 Functional Status: Reports: Pain Controlled, Tolerating Diet, Ambulating - Review of Systems General: Reports: Fever Pulmonary: Denies: Shortness of Breath Cardiovascular: Denies: Chest Pain, Edema Gastrointestinal: Denies: Abdominal Pain Neurological: Denies: Confusion - Patient Data Vitals - Most Recent: Last Vital Signs Temp 98.5 F 08/05/21 08:03 Pulse 83 08/05/21 08:03 Resp 20 08/05/21 08:03 BP 123/78 08/05/21 08:03 Pulse Ox 97 08/05/21 08:03 Weight - Most Recent: 194 lb I&O - Last 24 hours: Intake & Output 08/04/21 08/05/21 08/05/21 22:59 06:59 14:59 Intake Total 200 320 Output Total 900 400 Balance -700 -80 Med Orders - Current: Current Medications Benzocaine/Menthol (Benzocaine/Cetylpyridinium/Menthol Lozenge) 1 lozenge MUCMEM TID PRN PRN Reason: Cough Cyclobenzaprine HCl (Cyclobenzaprine 10 Mg Tab) 5 mg PO TID [facility] Last Admin: 08/04/21 21:23 Dose: 5 mg Documented by: Docusate Sodium (Docusate Sodium 100 Mg Cap) 100 mg PO BID [facility] Last Admin: 08/04/21 21:24 Dose: 100 mg Documented by: Enoxaparin Sodium (Enoxaparin 40 Mg/0.4 Ml Syringe) 40 mg SUBCUT DAILY [facility] Last Admin: 08/04/21 08:22 Dose: 40 mg Documented by: Fentanyl (Fentanyl 12 Mcg/Hr Transdermal Patch) 12 mcg TRDERM Q72H [facility] Last Admin: 08/04/21 12:40 Dose: Not Given Documented by: Lidocaine (Lidocaine 5% 700 Mg Patch) 1,400 mg TOP DAILY [facility] Last Admin: 08/04/21 08:22 Dose: 1,400 mg Documented by: Methyl Salicylate (Menthol/Methyl Salicylate 85 Gm Tube) 0 gm TOP QID PRN PRN Reason: Pain (mild 1-3) Last Admin: 08/01/21 21:23 Dose: 1 dose Documented by: Miscellaneous Information (Check Patch) 1 ea TRDERM BEDTIME [facility] Last Admin: 08/04/21 21:25 Dose: 1 ea Documented by: Miscellaneous Information (Remove Lidocaine Patches) 2 ea TRDERM DAILY@2100 [facility] Last Admin: 08/04/21 21:26 Dose: 2 ea Documented by: Oxycodone HCl (Oxycodone 5 Mg Tab) 5 mg PO ONETIME PRN PRN Reason: Pain while away to appt Oxycodone/Acetaminophen (Acetaminophen/Oxycodone 325-5 Mg Tab) 2 tab PO Q4H PRN PRN Reason: SEVERE PAIN Last Admin: 08/05/21 08:12 Dose: 2 tab Documented by: Polyethylene Glycol (Polyethylene Glycol 3350 Powder 17 Gm Packet) 17 gm PO DAILY [facility] Last Admin: 08/04/21 08:22 Dose: Not Given Documented by: Discontinued Medications Celecoxib (Celecoxib 100 Mg Cap) 200 mg PO BID [facility] Last Admin: 07/30/21 08:28 Dose: 200 mg Documented by: Fentanyl (Fentanyl 25 Mcg/Hr Transdermal Patch) 25 mcg TRDERM Q72H [facility] Last Admin: 07/29/21 12:45 Dose: 25 mcg Documented by: Hydromorphone HCl (Hydromorphone 0.5 Mg/0.5 Ml Syringe) 0.5 mg IVPUSH Q2H PRN PRN Reason: Pain (severe 7-10) Last Admin: 07/30/21 08:43 Dose: 0.5 mg Documented by: Hydromorphone HCl (Hydromorphone 0.5 Mg/0.5 Ml Syringe) 0.2 mg IVPUSH ONETIME ONE Stop: 07/30/21 14:31 Last Admin: 07/30/21 14:40 Dose: 0.2 mg Documented by: Hydromorphone HCl (Hydromorphone 0.5 Mg/0.5 Ml Syringe) 0.2 mg IVPUSH Q2H PRN PRN Reason: Pain (severe 7-10) Last Admin: 07/31/21 02:08 Dose: 0.2 mg Documented by: Hydromorphone HCl (Hydromorphone 0.5 Mg/0.5 Ml Syringe) 0.5 mg IVPUSH Q2H PRN PRN Reason: Pain (severe 7-10) Last Admin: 08/01/21 04:03 Dose: 0.5 mg Documented by: Hydromorphone HCl (Hydromorphone 0.5 Mg/0.5 Ml Syringe) 0.5 mg IVPUSH Q4H PRN PRN Reason: Pain (severe 7-10) Last Admin: 08/01/21 22:44 Dose: 0.5 mg Documented by: Miscellaneous Information (Remove Fentanyl Patch) 1 ea TRDERM Q72H [facility] Last Admin: 07/29/21 12:50 Dose: 1 ea Documented by: Miscellaneous Information (Remove Patch) 1 ea TRDERM ONETIME ONE Stop: 07/28/21 11:14 Last Admin: 07/28/21 14:57 Dose: Not Given Documented by: Naloxone HCl (Naloxone 2 Mg/2 Ml Syringe) 0.04 mg IVPUSH Q3M PRN PRN Reason: Respiratory Depression Ondansetron HCl (Ondansetron 4 Mg/2 Ml Sdv) 4 mg IVPUSH Q6H PRN PRN Reason: Nausea/Vomiting Last Admin: 07/30/21 08:42 Dose: 4 mg Documented by: Oxycodone HCl (Oxycodone 5 Mg Tab) 7.5 mg PO Q4H PRN PRN Reason: Pain (moderate 4-6) Last Admin: 07/30/21 05:56 Dose: 7.5 mg Documented by: Oxycodone HCl (Oxycodone 5 Mg Tab) 5 mg PO .STK-MED ONE Stop: 07/30/21 10:01 Oxycodone/Acetaminophen (Acetaminophen/Oxycodone 325-5 Mg Tab) 1 tab PO Q6H PRN PRN Reason: Pain (severe 7-10) Oxycodone/Acetaminophen (Acetaminophen/Oxycodone 325-5 Mg Tab) 1 tab PO Q6H [facility] Last Admin: 07/30/21 20:31 Dose: 1 tab Documented by: Oxycodone/Acetaminophen (Acetaminophen/Oxycodone 325-5 Mg Tab) 2 tab PO Q4H [facility] Last Admin: 08/02/21 00:00 Dose: 2 tab Documented by: Oxycodone/Acetaminophen (Acetaminophen/Oxycodone 325-5 Mg Tab) 2 tab PO Q4H [facility] Last Admin: 08/04/21 08:22 Dose: 2 tab Documented by: Oxycodone/Acetaminophen (Acetaminophen/Oxycodone 325-5 Mg Tab) Confirm Admi nistered Dose 2 tab .ROUTE .STK-MED ONE Stop: 08/04/21 10:24 Last Admin: 08/04/21 11:07 Dose: Not Given Documented by: Sodium Chloride (Sodium Chloride 0.9% 10 Ml Syringe) 10 ml FLUSH ASDIRECTED PRN PRN Reason: IV Use Last Admin: 07/31/21 17:11 Dose: 10 ml Documented by: - Exam General: Reports: Alert, Oriented Neck: Reports: Supple Lungs: Reports: Clear to Auscultation, Normal Respiratory Effort GI/Abdominal Exam: Normal Bowel Sounds, Soft, Non-Tender Extremities: No Pedal Edema
== END 2021-08-05 12:27 | disposition home or self-care (01) | DRG 561 ==
LOC: UNDOADMIN 11:19 → DL.MS 11:19 → UNDOADMIN 11:40
PROVIDERS: ADMIT Internal Medicine; ATTEND Hospitalist
DX: S32.009D Unspecified fracture of unspecified lumbar vertebra, subsequent encounter for fracture with routine healing (principal); M54.9 Dorsalgia, unspecified; Z79.899 Other long term (current) drug therapy; S70.01XD Contusion of right hip, subsequent encounter; W19.XXXD Unspecified fall, subsequent encounter; R10.32 Left lower quadrant pain
CPT/HCPCS: 36415; 72192; 80053; 85025; 97110-GP; 97116-GP; 97161-GP; 97165-GO; 97530-GO; 97535-GO; A9270-GY; J1170; J1650; J2405

== ENCOUNTER 2025-05-19 19:22 | Emergency (ER) | payer MEDICARE, OTHER ==
[2025-05-19] MEDS: Iopamidol 612 MG/ML 100 ML Bottle IVPUSH ONE (19:34)
[2025-05-19] MEDS: Ondansetron 4 MG/2 ML SDV IVPUSH ONE (19:52)
[2025-05-19 19:53] LABS: BASOPHILS PERCENT AUTO 0.2 % (0.0-1.0); EOSINOPHILS PERCENT AUTO 0.2 % (1.0-3.0); LYMPHOCYTES PERCENT AUTO 6.8 % (20.5-50.1); MONOCYTES PERCENT AUTO 2.7 % (2-8); NEUTROPHILS PERCENT AUTO 90.1 % (42.2-75.2); PLATELET COUNT,PLT 254 10^3/uL (150-450); RED BLOOD CELL COUNT 4.04 10^6/uL (4.6-6.2); WHITE BLOOD CELL COUNT,WBC 12.8 10^3/uL (5.0-10.0)
[2025-05-19 20:18] LABS: A/G RATIO 1.1; ALANINE AMINOTRANSFERASE,ALT 41 U/L (16-63); ASPARTATE AMNIOTRANSFERASE,AST 28 U/L (15-37); BILIRUBIN TOTAL 1.2 mg/dL (0.2-1.0); BLOOD UREA NITROGEN,BUN 26 mg/dL (7-18); CARBON DIOXIDE,CO2 28 mmol/L (21-32); CHLORIDE,CL 102 mmol/L (98-107); CREATININE 1.63 mg/dL (0.70-1.30); GLUCOSE RANDOM 147 mg/dL (70-99); POTASSIUM,K 3.2 mmol/L (3.5-5.1); PROTEIN TOTAL,TP 7.6 g/dL (6.4-8.2); SODIUM,NA 140 mmol/L (136-145)
[2025-05-19 20:19] LABS: LACTIC ACID 2.8 mmol/L (0.4-2.0)
[2025-05-19 20:20] LABS: ESTIMATED GFR 46 mL/min (>=60)
[2025-05-19 21:43] LABS: APPEARANCE,URINE SLIGHTLY CLOUDY (CLEAR); GLUCOSE,URINE NEGATIVE (NEGATIVE); OCCULT BLOOD,URINE LARGE (NEGATIVE)
[2025-05-19 21:54] LABS: EPITHELIAL CELLS,URINE FEW /HPF (NOT SEEN)
[2025-05-19] MEDS: Take Home: Acetaminophen/HYDROcodone 325-5 MG, 5 Tab Pack PO ONE (21:55)
[2025-05-19] MEDS: Ketorolac 30 MG/ML SDV IVPUSH ONE (22:17)
== END 2025-05-19 22:10 | disposition home or self-care (01) ==
LOC: DL.ED 19:22
DX: N20.1 Calculus of ureter (principal); K21.9 Gastro-esophageal reflux disease without esophagitis; Z79.899 Other long term (current) drug therapy
CPT/HCPCS: 36415; 74177; 80053; 81001; 83605; 83690; 83735; 84484; 85025; 96361; 96374; 96375; 99283; 99284; A9270; J1885; J2270; J2405; J7030; Q9967; J1171

== ENCOUNTER 2025-05-26 18:29 | Emergency (ER) | payer MEDICARE ==
[2025-05-26] MEDS ORDERED: Sodium Chloride 0.9% 10 ML Syringe FLUSH PRN (18:53)
[2025-05-26 19:07] LABS: BASOPHILS PERCENT AUTO 0.4 % (0.0-1.0); EOSINOPHILS PERCENT AUTO 2.9 % (1.0-3.0); LYMPHOCYTES PERCENT AUTO 31.4 % (20.5-50.1); MONOCYTES PERCENT AUTO 9.1 % (2-8); NEUTROPHILS PERCENT AUTO 56.2 % (42.2-75.2); PLATELET COUNT,PLT 284 10^3/uL (150-450); RED BLOOD CELL COUNT 3.87 10^6/uL (4.6-6.2); WHITE BLOOD CELL COUNT,WBC 8.3 10^3/uL (5.0-10.0)
[2025-05-26 19:27] LABS: A/G RATIO 1.1; ALANINE AMINOTRANSFERASE,ALT 33 U/L (16-63); ASPARTATE AMNIOTRANSFERASE,AST 15 U/L (15-37); BILIRUBIN TOTAL 0.7 mg/dL (0.2-1.0); BLOOD UREA NITROGEN,BUN 23 mg/dL (7-18); CARBON DIOXIDE,CO2 29 mmol/L (21-32); CHLORIDE,CL 101 mmol/L (98-107); CREATININE 1.62 mg/dL (0.70-1.30); EST CRCL DRUG DOSING (CG) 48.57 mL/min; GLUCOSE RANDOM 114 mg/dL (70-99); POTASSIUM,K 3.1 mmol/L (3.5-5.1); PROTEIN TOTAL,TP 7.4 g/dL (6.4-8.2); SODIUM,NA 141 mmol/L (136-145)
[2025-05-26 19:28] LABS: ESTIMATED GFR 46 mL/min (>=60)
[2025-05-26 19:30] LABS: LACTIC ACID 1.8 mmol/L (0.4-2.0)
[2025-05-26] MEDS: Potassium Chloride 10 MEQ Tab.ER PO ONE (21:10)
[2025-05-26 21:34] LABS: APPEARANCE,URINE CLEAR (CLEAR); GLUCOSE,URINE NEGATIVE (NEGATIVE); OCCULT BLOOD,URINE NEGATIVE (NEGATIVE)
[2025-05-26] MEDS: Ketorolac 30 MG/ML SDV IVPUSH ONE (21:39)
[2025-05-26] MEDS: Take Home: Acetaminophen/oxyCODONE 325-5 MG, 5 Tab Pack PO ONE (21:45)
[2025-05-26] MEDS: Take Home: Tamsulosin HCl 0.4 MG, 6 Cap Pack PO ONE (21:45)
== END 2025-05-26 22:00 | disposition home or self-care (01) ==
LOC: DL.ED 18:29
DX: N13.2 Hydronephrosis with renal and ureteral calculous obstruction (principal); E87.6 Hypokalemia; Z79.899 Other long term (current) drug therapy
CPT/HCPCS: 36415; 74176; 80053; 81003; 83605; 85025; 86140; 87040; 96374; 96375; 99284; A9270; J1171; J1885

== ENCOUNTER 2025-05-29 09:22 | Emergency (ER) | payer MEDICARE ==
[2025-05-29] MEDS: Ondansetron 4 MG/2 ML SDV IVPUSH ONE (10:06)
[2025-05-29 10:07] LABS: BASOPHILS PERCENT AUTO 0.1 % (0.0-1.0); EOSINOPHILS PERCENT AUTO 0.0 % (1.0-3.0); LYMPHOCYTES PERCENT AUTO 5.3 % (20.5-50.1); MONOCYTES PERCENT AUTO 10.7 % (2-8); NEUTROPHILS PERCENT AUTO 83.9 % (42.2-75.2); PLATELET COUNT,PLT 260 10^3/uL (150-450); RED BLOOD CELL COUNT 4.23 10^6/uL (4.6-6.2); WHITE BLOOD CELL COUNT,WBC 15.6 10^3/uL (5.0-10.0)
[2025-05-29 10:22] LABS: BLOOD UREA NITROGEN,BUN 36.0 mg/dL (7-18); CARBON DIOXIDE,CO2 28.0 mmol/L (21-32); CHLORIDE,CL 98.0 mmol/L (98-107); CREATININE 3.38 mg/dL (0.70-1.30); EST CRCL DRUG DOSING (CG) 23.28 mL/min; ESTIMATED GFR 19.0 mL/min (>=60); GLUCOSE RANDOM 146.0 mg/dL (70-99); POTASSIUM,K 3.9 mmol/L (3.5-5.1); SODIUM,NA 137.0 mmol/L (136-145)
[2025-05-29 10:53] LABS: APPEARANCE,URINE CLEAR (CLEAR); GLUCOSE,URINE NEGATIVE (NEGATIVE); OCCULT BLOOD,URINE LARGE (NEGATIVE)
[2025-05-29 11:03] LABS: EPITHELIAL CELLS,URINE FEW /HPF (NOT SEEN)
== END 2025-05-29 14:33 ==
LOC: DL.ED 09:22
DX: N13.2 Hydronephrosis with renal and ureteral calculous obstruction (principal); E86.0 Dehydration; Z79.899 Other long term (current) drug therapy
CPT/HCPCS: 36415; 71250; 74176; 76775; 80048; 81001; 85025; 96361; 96374; 96375; 96376; 99284; 99285-25; J1171; J2405; J7030